=== PATIENT | female | born 1940 | race Caucasian/White ===

== ENCOUNTER 2018-06-18 12:06 | Emergency (ER) | payer MEDICAID, SELFPAY ==
[2018-06-18 12:24] VITALS: BP 192/62; PULSE 71; RESP 16; TEMP 36.7; O2SAT 94
--- NOTE | 2018-06-18 12:29 | W.ED.GENAD ---
Discharge Plan Discharge Details Chief Complaint: Orthopedic Primary Care Provider: Enedelia Moura ED Provider: Kartik Lujan Home Meds and New Rx's Prescriptions: No Action triamcinolone acetonide 80 GM ointment 2 - 4 gm Topical BID PRNQty: 80 RF: 0 multivitamin [Daily Multi-Vitamin] 1 EACH tablet 1 ea PO DAILY AM Qty: 90 RF: 12 ropinirole 1 MG tablet 1.5 mg PO HS Qty: 135 RF: 6 amlodipine 5 MG tablet 5 mg PO DAILY Qty: 90 RF: 12 aspirin [Aspir-81] 81 MG tablet,delayed release (DR/EC) 81 mg PO DAILY AM Qty: 90 RF: 12 acetaminophen [Acetaminophen Extra Strength] 500 MG tablet 1,000 mg PO Q6H PRN PRNQty: 180 RF: 12 hydrochlorothiazide 12.5 MG capsule 12.5 mg PO DAILY Qty: 90 RF: 12 gabapentin 300 MG capsule PO HS Qty: 360 RF: 12 triamcinolone acetonide 80 GM ointment 2 - 4 gm Topical DAILY PRNQty: 80 RF: 2 ibuprofen [Ibuprofen IB] 200 MG tablet 200 - 600 mg PO PRN PRNRF: 0 Medical Decision Making 78-year-old female presents with right hand ring finger pain and swelling, secondary to her wedding rings which caused constriction in the context of edema secondary to finger cellulitis. Rings were removed, patient referred for x-ray which does not reveal underlying bony lesion. I will treat her for cellulitis of the hand with Keflex. She will do warm compresses at home. She is stable and improved, appropriate for discharge to home. HPI General Mode of arrival: ambulatory. Date/Time Provider Initiated Documentation: 06/18/18 12:25. Limitations to Documentation: no limitations. Information obtained by: patient. History of Present Illness 78 year old F presents to the emergency department with the chief complaint of Right hand swelling and pain of fourth finger, described as moderate, Quality is described as aching, and is localized to the right and upper extremity. Patient reports no radiation. Patient started experiencing this hour(s) and it has been constant. No relieving factors improve symptom(s), No exacerbating factors reported . Patient did receive the following treatments prior to arrival, none HPI Narrative: 78-year-old female presents with 1 day of right fourth finger swelling and proximal phalanx erythema, now with occlusive constriction of her rings. Related Data Home Medications Medication Instructions Recorded Confirmed ibuprofen [Ibuprofen Ib] 200 - 600 mg PO PRN PRN 03/10/14 06/18/18 triamcinolone acetonide 2 - 4 gm TOPICAL BID PRN #80 gm 01/31/16 06/18/18 acetaminophen [Acetaminophen Extra 1,000 mg PO Q6H PRN PRN #180 tab 12/24/17 06/18/18 Strength] amlodipine 5 mg PO DAILY #90 tab-cap 12/24/17 06/18/18 aspirin [Aspir 81] 81 mg PO DAILY AM #90 tab-cap 12/24/17 06/18/18 gabapentin 0 PO HS #360 tab 12/24/17 hydrochlorothiazide 12.5 mg PO DAILY #90 tab-cap 12/24/17 06/18/18 multivitamin [Multi-Vitamin Daily] 1 ea PO DAILY AM #90 tab-cap 12/24/17 06/18/18 ropinirole 1.5 mg PO HS #135 tab 12/24/17 06/18/18 triamcinolone acetonide 2 - 4 gm TOPICAL DAILY PRN #80 gm 05/05/18 06/18/18 Previous Rx's Medication Instructions Recorded amlodipine 5 mg PO DAILY #90 tab-cap 12/24/17 aspirin [Aspir 81] 81 mg PO DAILY AM #90 tab-cap 12/24/17 hydrochlorothiazide 12.5 mg PO DAILY #90 tab-cap 12/24/17 multivitamin [Multi-Vitamin Daily] 1 ea PO DAILY AM #90 tab-cap 12/24/17 ropinirole 1.5 mg PO HS #135 tab 12/24/17 Allergies Allergy/AdvReac Type Severity Reaction Status Date / Time No Known Allergies Allergy Unverified 05/05/18 11:38 General Stated Complaint: Orthopedic JOE: 4 Review of Systems Review of Systems For systems reviewed and otherwise - [facility] Family History Mother Asthma Father Personal history of malignant neoplasm Sister Personal history of malignant neoplasm Brother Personal history of malignant neoplasm Sister No problems noted. Sister Personal history of malignant neoplasm Brother No problems noted. Son No problems noted. Son No problems noted. Son No problems noted. Daughter No problems noted. Daughter No problems noted. Social History household members: other details: 2 pets and animals: No Smoking/Tobacco Use Status: Never alcohol intake: never substance use type: does not use estrada/jain: OTHER Surgical History Colonoscopy - [facility] (~2004) Exam Narrative Exam Narrative: GEN: awake, alert, oriented 3. Pleasant, well groomed, interactive. HEAD: Normocephalic, atraumatic EYES: PERRL, EOMI NECK: Full ROM, no JULIA, no menigismus CHEST/RESP: Nontender, clear to auscultation bilateral, no wheeze/rhonchi/rales CARDIOVASCULAR: RRR, no murmur, rub hermilo. 2+ Rad pulse bilateral EXT: Full ROM, no edema, no rash. Right fourth finger proximal phalanx erythema with central area of abrasion. Distal sensation intact Neuro: Grossly normal neurologic exam, conversant, interactive. Psych: Speech fluent, thoughts congruent, affect normal Course Vital Signs Temperature 36.7 C 06/18/18 12:24 Pulse 71 06/18/18 12:24 Respiratory Rate 16 06/18/18 12:24 Blood Pressure 192/62 H 06/18/18 12:24 Pulse Oximetry 94 L 06/18/18 12:24 Temperature 36.7 C 06/18/18 12:24 Temperature Source Skin 06/18/18 12:24 Pulse 71 06/18/18 12:24 Respiratory Rate 16 06/18/18 12:24 Respiratory Effort Non-Labored 06/18/18 12:24 Blood Pressure 192/62 H 06/18/18 12:24 Blood Pressure Position Sitting 06/18/18 12:24 Pulse Oximetry 94 L 06/18/18 12:24 Oxygen Delivery Method Room Air 06/18/18 12:24 Oxygen Flow Rate 0 06/18/18 12:24 Pain Level 10 06/18/18 12:24
--- NOTE | 2018-06-18 12:32 | ED.GENADUL_ITS ---
Discharge Plan Discharge Details Chief Complaint: Orthopedic Primary Care Provider: Enedelia Moura ED Provider: Kartik Lujan Home Meds and New Rx's Prescriptions: No Action triamcinolone acetonide 80 GM ointment 2 - 4 gm Topical BID PRNQty: 80 RF: 0 multivitamin [Daily Multi-Vitamin] 1 EACH tablet 1 ea PO DAILY AM Qty: 90 RF: 12 ropinirole 1 MG tablet 1.5 mg PO HS Qty: 135 RF: 6 amlodipine 5 MG tablet 5 mg PO DAILY Qty: 90 RF: 12 aspirin [Aspir-81] 81 MG tablet,delayed release (DR/EC) 81 mg PO DAILY AM Qty: 90 RF: 12 acetaminophen [Acetaminophen Extra Strength] 500 MG tablet 1,000 mg PO Q6H PRN PRNQty: 180 RF: 12 hydrochlorothiazide 12.5 MG capsule 12.5 mg PO DAILY Qty: 90 RF: 12 gabapentin 300 MG capsule PO HS Qty: 360 RF: 12 triamcinolone acetonide 80 GM ointment 2 - 4 gm Topical DAILY PRNQty: 80 RF: 2 ibuprofen [Ibuprofen IB] 200 MG tablet 200 - 600 mg PO PRN PRNRF: 0 Medical Decision Making 78-year-old female presents with right hand ring finger pain and swelling, secondary to her wedding rings which caused constriction in the context of edema secondary to finger cellulitis. Rings were removed, patient referred for x-ray which does not reveal underlying bony lesion. I will treat her for cellulitis of the hand with Keflex. She will do warm compresses at home. She is stable and improved, appropriate for discharge to home. HPI General Mode of arrival: ambulatory . Date/Time Provider Initiated Documentation: 06/18/18 12:25 . Limitations to Documentation: no limitations . Information obtained by: patient . History of Present Illness 78 year old F presents to the emergency department with the chief complaint of Right hand swelling and pain of fourth finger, described as moderate, Quality is described as aching, and is localized to the right and upper extremity. Patient reports no radiation. Patient started experiencing this hour(s) and it has been constant. No relieving factors improve symptom(s), No exacerbating factors reported . Patient did receive the following treatments prior to arrival, none HPI Narrative: 78-year-old female presents with 1 day of right fourth finger swelling and proximal phalanx erythema, now with occlusive constriction of her rings. Related Data Home Medications Medication Instructions Recorded Confirmed ibuprofen [Ibuprofen Ib] 200 - 600 mg PO PRN PRN 03/10/14 06/18/18 triamcinolone acetonide 2 - 4 gm TOPICAL BID PRN #80 gm 01/31/16 06/18/18 acetaminophen [Acetaminophen Extra 1,000 mg PO Q6H PRN PRN #180 tab 12/24/17 Strength] amlodipine 5 mg PO DAILY #90 tab-cap 12/24/17 06/18/18 aspirin [Aspir 81] 81 mg PO DAILY AM #90 tab-cap 12/24/17 06/18/18 gabapentin 0 PO HS #360 tab 12/24/17 hydrochlorothiazide 12.5 mg PO DAILY #90 tab-cap 12/24/17 06/18/18 multivitamin [Multi-Vitamin Daily] 1 ea PO DAILY AM #90 tab-cap 12/24/17 ropinirole 1.5 mg PO HS #135 tab 12/24/17 06/18/18 triamcinolone acetonide 2 - 4 gm TOPICAL DAILY PRN #80 gm 05/05/18 06/18/18 Previous Rx's Medication Instructions Recorded amlodipine 5 mg PO DAILY #90 tab-cap 12/24/17 aspirin [Aspir 81] 81 mg PO DAILY AM #90 tab-cap 12/24/17 hydrochlorothiazide 12.5 mg PO DAILY #90 tab-cap 12/24/17 multivitamin [Multi-Vitamin Daily] 1 ea PO DAILY AM #90 tab-cap 12/24/17 ropinirole 1.5 mg PO HS #135 tab 12/24/17 Allergies Allergy/AdvReac Type Severity Reaction Status Date / Time No Known Allergies Allergy Unverified 05/05/18 11:38 General Stated Complaint: Orthopedic JOE: 4 Review of Systems Review of Systems For systems reviewed and otherwise - [facility] Family History Mother Asthma Father Personal history of malignant neoplasm Sister Personal history of malignant neoplasm Brother Personal history of malignant neoplasm Sister No problems noted. Sister Personal history of malignant neoplasm Brother No problems noted. Son No problems noted. Son No problems noted. Son No problems noted. Daughter No problems noted. Daughter No problems noted. Social History household members: other details: 2 pets and animals: No Smoking/Tobacco Use Status: Never alcohol intake: never substance use type: does not use estrada/episcopal: OTHER Surgical History Colonoscopy - [facility] (~2004) Exam Narrative Exam Narrative: GEN: awake, alert, oriented 3. Pleasant, well groomed, interactive. HEAD: Normocephalic, atraumatic EYES: PERRL, EOMI NECK: Full ROM, no JULIA, no menigismus CHEST/RESP: Nontender, clear to auscultation bilateral, no wheeze/rhonchi/rales CARDIOVASCULAR: RRR, no murmur, rub hermilo. 2+ Rad pulse bilateral EXT: Full ROM, no edema, no rash. Right fourth finger proximal phalanx erythema with central area of abrasion. Distal sensation intact Neuro: Grossly normal neurologic exam, conversant, interactive. Psych: Speech fluent, thoughts congruent, affect normal Course Vital Signs Temperature 36.7 C 06/18/18 12:24 Pulse 71 06/18/18 12:24 Respiratory Rate 16 06/18/18 12:24 Blood Pressure 192/62 H 06/18/18 12:24 Pulse Oximetry 94 L 06/18/18 12:24 Temperature 36.7 C 06/18/18 12:24 Temperature Source Skin 06/18/18 12:24 Pulse 71 06/18/18 12:24 Respiratory Rate 16 06/18/18 12:24 Respiratory Effort Non-Labored 06/18/18 12:24 Blood Pressure 192/62 H 06/18/18 12:24 Blood Pressure Position Sitting 06/18/18 12:24 Pulse Oximetry 94 L 06/18/18 12:24 Oxygen Delivery Method Room Air 06/18/18 12:24 Oxygen Flow Rate 0 06/18/18 12:24 Pain Level 10 06/18/18 12:24
--- NOTE | 2018-06-18 12:55 | DI.RAD_ITS ---
SYMPTOMS/DIAGNOSIS: 4TH FINGER SWELLING AND HAND PAIN RIGHT HAND: Generalized osteoporosis is demonstrated. There is some soft tissue swelling over the proximal phalanx of the left ring finger. No soft tissue foreign body , fracture or dislocation is defined. 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 SUMMARY: Soft tissue swelling. No evidence of a fracture, or dislocation or soft tissue foreign body involving the ring finger.
[2018-06-18 13:10] VITALS: BP 146/66; PULSE 74; RESP 16; TEMP 36.1; O2SAT 96
== END 2018-06-18 13:11 | disposition home or self-care (01) ==
PROVIDERS: Emergency Provider Emergency Medicine; PCP Family Medicine
DX: L03.011 Cellulitis of right finger (principal); I10 Essential (primary) hypertension
CPT/HCPCS: 99283; 73130

== ENCOUNTER 2018-09-26 13:16 | Emergency (ER) | payer MEDICAID, SELFPAY ==
[2018-09-26 13:40] VITALS: BP 186/54; PULSE 68; RESP 18; TEMP 36.2; O2SAT 95
--- NOTE | 2018-09-26 15:23 | ED.GENADUL_ITS ---
Discharge Plan Disposition Patient Disposition: HOME Condition: Stable Discharge Details Chief Complaint: RashLesion Clinical Impression: Rash of hands Primary Care Provider: Enedelia Moura ED Provider: Karol Faith Home Meds and New Rx's Prescriptions: New prednisone 20 mg tablet 20 mg PO DIRECTED Qty: 12 RF: 0 hydrocortisone 1 % cream 1 applic TP BID Qty: 28 RF: 0 Continued ropinirole 1 MG tablet 1.5 mg PO HS Qty: 135 RF: 6 triamcinolone acetonide 80 GM ointment 2 - 4 gm Topical DAILY PRNQty: 80 RF: 2 gabapentin 300 mg capsule 300 mg PO BID Qty: 360 RF: 12 aspirin [Aspir-81] 81 mg tablet,delayed release (DR/EC) 81 mg PO DAILY AM Qty: 90 RF: 12 hydrochlorothiazide 12.5 mg capsule 12.5 mg PO DAILY Qty: 90 RF: 12 multivitamin [Daily Multi-Vitamin] tablet 1 tab PO DAILY AM Qty: 90 RF: 12 acetaminophen [Acetaminophen Extra Strength] 500 mg tablet 1,000 mg PO Q6H PRN PRN (Reason: fever or pain) Qty: 180 RF: 4 amlodipine 5 mg tablet 5 mg PO DAILY Qty: 90 RF: 12 ibuprofen [Ibuprofen IB] 200 MG tablet 200 - 600 mg PO PRN PRNRF: 0 Discharge Instructions Instructions: Acute Rash (ED), Dyshidrotic Eczema (ED) Additional Instructions: Avoid frequent handwashing which may worsen rash or drying of hands. Apply a thick cream such as Lubriderm or Aveeno to help with moisture of hands. Consider wearing gloves over lotion on hands at nighttime. Apply the hydrocortisone cream to hands and right arm twice daily. Take the oral steroids until finished. Call your primary care doctor for referral to a handle assembler for re-evaluation. Take Benadryl as needed to help with itching and to avoid scratching which may cause a secondary bacterial infection. Return immediately to the emergency department for any worsening or new concerning symptoms. Discharge Data Discharge Date/Time-TO BE ENTERED AT DEPARTURE: 09/26/18 15:20 Discharge Physician: Karol Faith Medical Decision Making 78-year-old female with a history of dyshidrotic eczema who presents with chronic rash on bilateral hands for the past 8 months. Patient presents with persistent itching over the past few days. Denies any new exposures. Bilateral palmar hands appear mildly pink/faintly erythematous with scaling noted. No acute signs of infection. No bleeding or drainage. There are scattered erythematous papules on her right upper arm. Patient has been seen by her primary care doctor for this and was diagnosed with dyshidrotic eczema and presentation appears likely due to this. No relief with hydrocortisone cream. Discussed with patient that oral steroids may give her relief, but symptoms may return after. Advised that she follow-up with a handle assembler. Patient would like to try the oral steroids. Will give a prescription for prednisone, recommend to continue hydrocortisone cream, and consider adding lotions to help with moisture. Advised on taking antihistamines to help with itching to avoid secondary bacterial infection. Instructed to return here with any concerns. HPI General Mode of arrival: ambulatory . Date/Time Provider Initiated Documentation: 09/26/18 14:16 . Limitations to Documentation: no limitations . Information obtained by: patient . HPI Narrative: 78-year-old female with a history of dyshidrotic eczema who presents with chronic rash on bilateral hands for the past 8 months. She has been seen by her pcp for this and diagnosed with dyshidrotic eczema and states her symptoms have been chronic since then just with worsening persistent itching over the past few days. Denies new soaps, lotions, detergents, meds, exposures. Pt has been using cortisone and triamcinolone cream w/ minimal relief. Pt states she washes her hands frequently. Pt states the itching bothers her a lot at night and she has trouble sleeping due to it so she occasionally takes benadryl for this. Related Data Home Medications Medication Instructions Recorded Confirmed ibuprofen [Ibuprofen IB] 200 - 600 mg PO PRN PRN 03/10/14 09/26/18 ropinirole 1.5 mg PO HS #135 tab 12/24/17 09/26/18 triamcinolone acetonide 2 - 4 gm TOPICAL DAILY PRN #80 gm 05/05/18 09/26/18 gabapentin 300 mg capsule 300 mg PO BID #360 tab 06/23/18 09/26/18 acetaminophen 500 mg tablet 1,000 mg PO Q6H PRN PRN #180 tab 08/04/18 09/26/18 amlodipine 5 mg tablet 5 mg PO DAILY #90 tab-cap 08/04/18 09/26/18 aspirin 81 mg tablet,delayed 81 mg PO DAILY AM #90 tab-cap 08/04/18 09/26/18 release hydrochlorothiazide 12.5 mg capsule 12.5 mg PO DAILY #90 tab-cap 08/04/18 09/26/18 multivitamin tablet 1 tab PO DAILY AM #90 tab-cap 08/04/18 09/26/18 hydrocortisone 1 applic TP BID #28 gm 09/26/18 prednisone 20 mg PO DIRECTED #12 tab 09/26/18 Previous Rx's Medication Instructions Recorded ropinirole 1.5 mg PO HS #135 tab 12/24/17 acetaminophen 500 mg tablet 1,000 mg PO Q6H PRN PRN #180 tab 08/04/18 amlodipine 5 mg tablet 5 mg PO DAILY #90 tab-cap 08/04/18 aspirin 81 mg tablet,delayed 81 mg PO DAILY AM #90 tab-cap 08/04/18 release hydrochlorothiazide 12.5 mg capsule 12.5 mg PO DAILY #90 tab-cap 08/04/18 multivitamin tablet 1 tab PO DAILY AM #90 tab-cap 08/04/18 hydrocortisone 1 applic TP BID #28 gm 09/26/18 prednisone 20 mg PO DIRECTED #12 tab 09/26/18 Allergies Allergy/AdvReac Type Severity Reaction Status Date / Time No Known Allergies Allergy Unverified 09/26/18 13:46 General Stated Complaint: RashLesion JOE: 4 Review of Systems Review of Systems All systems reviewed & are unremarkable except as noted in HPI and below Constitutional Reports as per HPI, Denies chills and Denies fever(s) Eyes Denies blurry vision ENT Denies dizziness, Denies sore throat and Denies throat swelling Cardiovascular Denies chest pain and Denies dyspnea Respiratory Denies dyspnea Gastrointestinal Denies abdominal pain, Denies diarrhea and Denies vomiting Genitourinary Denies hematuria and Denies dysuria Musculoskeletal Denies back pain and Denies numbness Integumentary/Breasts Denies lesions and Reports rash Neurologic Denies dizziness and Denies numbness Allergic/Immunologic Denies throat swelling [facility] Medical History Spinal stenosis of lumbar region (Chronic 01/19/10) Shoulder pain (Chronic) Restless legs (Chronic 07/29/13) Osteopenia (Chronic) Hyperlipidemia (Chronic) Essential hypertension (Chronic) Dyshidrotic eczema (Chronic 05/05/18) Degenerative cervical disc (Chronic 11/21/15) Surgical History Colonoscopy - [facility] (~2004) Family History Mother Asthma Father Personal history of malignant neoplasm Sister Personal history of malignant neoplasm Brother Personal history of malignant neoplasm Sister No problems noted. Sister Personal history of malignant neoplasm Brother No problems noted. Son No problems noted. Son No problems noted. Son No problems noted. Daughter No problems noted. Daughter No problems noted. Social History household members: other details: 2 pets and animals: No Smoking/Tobacco Use Status: Never alcohol intake: never substance use type: does not use estrada/muslim: OTHER Exam Const General: cooperative, healthy appearing and no acute distress HENMT Head: normal to inspection Mouth: oral mucosae normal Eyes General: appearance normal, both eyes and all related structures Neck Neck: normal visual inspection Resp Effort & Inspection: normal respiratory effort and able to speak in complete sentences Cardio Rate: regular rate Skin Other: Hands: b/l palmar faint erythema extending and well circumscribed to edges of hands. There is also scattered scaling noted but no acute signs of infection, drainage, bleeding, papules, vesicles. R upper arm: Scattered erythematous papules noted to R anterolateral upper arm. No scaling, vesicles, drainage or bleeding. Neuro General: alert, awake and oriented x3 Motor: muscle tone normal throughout Extrem General: full ROM and normal capillary refill Psych Appearance: grossly normal Affect: normal affect Course Vital Signs Temperature 97.2 F L 09/26/18 13:40 Pulse 68 09/26/18 13:40 Respiratory Rate 18 09/26/18 13:40 Blood Pressure 186/54 H 09/26/18 13:40 Pulse Oximetry 95 09/26/18 13:40 Temperature 97.2 F L 09/26/18 13:40 Temperature Source Temporal Artery Scan 09/26/18 13:40 Pulse 68 09/26/18 13:40 Respiratory Rate 18 09/26/18 13:40 Respiratory Effort Non-Labored 09/26/18 13:45 Blood Pressure 186/54 H 09/26/18 13:40 Blood Pressure Position Sitting 09/26/18 13:40 Pulse Oximetry 95 09/26/18 13:40 Oxygen Delivery Method Room Air 09/26/18 13:40 Oxygen Flow Rate 0 09/26/18 13:40
== END 2018-09-26 15:20 | disposition home or self-care (01) ==
PROVIDERS: Emergency Provider Physician Assistant; PCP Family Medicine
DX: R21 Rash and other nonspecific skin eruption (principal); I10 Essential (primary) hypertension
CPT/HCPCS: 99283

== ENCOUNTER 2018-11-12 11:49 | Outpatient (REF) | payer MEDICAID, SELFPAY ==
[2018-11-12 12:57] LABS: Abs Immature Grans 0.08 k/cumm (0.0-0.09); Absolute Basophil Count 0.07 k/cumm (0.0-0.2); Absolute Lymphocyte Count 2.15 k/cumm (1.2-3.4); Absolute Monocyte Count 0.73 k/cumm (0.11-0.7); Basophils % 0.6; Eosinophils % 0.3; HCT 39.3 % (36.0-46.0); HGB 12.9 g/dL (12.0-15.5); Immature Grans % 0.7; Lymphocytes % 18.8; Mean Corp. HGB Concentration 32.8 g/dL (32.0-36.0); Mean Corpuscular Hemoglobin 28.6 pg (27.0-33.0); Mean Corpuscular Volume 87.1 fL (80-95); Mean Platelet Volume 11.5 fL (8.0-11.0); Monocytes % 6.4; Neutrophils % 73.2; Platelet Count 365 x1000/uL (130-400); RBC 4.51 m/cumm (4.00-5.20); RBC Distribution Width 13.9 % (11.7-14.6); White Blood Cell Count 11.43 k/cumm (4.4-10.8)
[2018-11-12 13:01] LABS: Absolute Eosinophil Count 0.03 k/cumm (0.0-0.7); Absolute Neutrophil Count 8.37 k/cumm (1.2-6.7)
[2018-11-12 13:11] LABS: Iron 72 ug/dL (50-175); Total Iron Binding Capacity 330 ug/dL (250-450); Transferrin Sat 22 % (15-50)
[2018-11-12 13:13] LABS: ALT 37 U/L (12-78); AST 20 U/L (15-37); Albumin 3.8 g/dL (3.4-5.0); Alkaline Phosphatase 70 U/L (46-116); Anion Gap 9.5 mmol/L (3-11); BUN 23 mg/dL (7-18); Bilirubin, Total 0.3 mg/dL (0.2-1.0); CO2 28.5 mmol/L (21.0-32.0); CREATININE 0.73 mg/dL (0.55-1.02); Calcium 9.8 mg/dL (8.5-10.1); Chloride 101 mmol/L (98-107); Glucose 106 mg/dL (70-100); Sodium 139 mmol/L (136-145); Total Protein 7.4 g/dL (6.4-8.2)
[2018-11-12 13:27] LABS: Ferritin 100 ng/mL (8-388)
== END 2018-11-12 12:09 ==
LOC: NCHCN 11:49
PROVIDERS: PCP Family Medicine; Visit Provider Nurse Practitioner Family
DX: E78.5 Hyperlipidemia, unspecified (principal); I10 Essential (primary) hypertension; G25.81 Restless legs syndrome; L30.1 Dyshidrosis [pompholyx]
CPT/HCPCS: 80053; 82728; 83540; 83550; 85025

== ENCOUNTER 2019-07-15 19:40 | Emergency (ER) | payer MEDICAID, SELFPAY ==
[2019-07-15 19:45] VITALS: BP 170/59; PULSE 75; RESP 16; TEMP 36.7; O2SAT 94
--- NOTE | 2019-07-15 20:16 | W.ED.GENAD ---
Discharge Plan Disposition Patient Disposition: HOME Condition: Good Discharge Details Chief Complaint: Epistaxis Clinical Impression: Epistaxis Primary Care Provider: Jese Gonzalez ED Provider: Khloe Thomas Home Meds and New Rx's Prescriptions: Continued gabapentin 300 mg capsule 300 mg PO BID Qty: 360 RF: 12 hydrochlorothiazide 12.5 mg capsule 12.5 mg PO DAILY Qty: 90 RF: 12 multivitamin [Daily Multi-Vitamin] tablet 1 tab PO DAILY AM Qty: 90 RF: 12 acetaminophen [Acetaminophen Extra Strength] 500 mg tablet 1,000 mg PO Q6H PRN PRN (Reason: fever or pain) Qty: 180 RF: 4 amlodipine 5 mg tablet 5 mg PO DAILY Qty: 90 RF: 12 aspirin [Aspir-81] 81 mg tablet,delayed release (DR/EC) 81 mg PO DAILY AM Qty: 90 RF: 12 ropinirole 1 mg tablet 1.5 mg PO HS Qty: 135 RF: 6 halobetasol propionate 0.05 % cream 1 applic TP DAILY RF: 0 cyanocobalamin (vitamin B-12) 1,000 mcg capsule 1,000 mcg PO DAILY RF: 0 magnesium oxide 400 mg magnesium capsule 400 mg PO DAILY RF: 0 ibuprofen [Ibuprofen IB] 200 MG tablet 200 - 600 mg PO PRN PRNRF: 0 Discharge Instructions Instructions: Nosebleed (ED) Additional Instructions: Encourage water intake. Please use the nasal saline 3-5 times daily to help moisturize your nose. If you develop a recurrent nosebleed, please apply clamp and leave in place for 20 minutes. Please follow-up with primary care as needed. If you are unable to stop the bleeding at home, you may return to the emergency department. Referrals: Jese Gonzalez, [employer]ATION OFFICER [Primary Care Provider] - Discharge Data Discharge Date/Time-TO BE ENTERED AT DEPARTURE: 07/15/19 20:40 Medical Decision Making Patient presents today with chief complaint of epistaxis. She is brought in by her daughter. She reports that she had epistaxis that lasted approximately 1 hour and has since resolved. Atraumatic onset. Is not had this historically. Patient's primary concern is that she swallowed some blood clots that were coming from her nose. She reports she was able to stop the bleeding by holding pressure on the nose. Family reports that they did recently turned on the heat and have not been using any humidification in the air. On exam, patient is resting comfortably. Patient is noted to be hypertensive but this is not atypical for her. Vital signs are otherwise normal. She is not endorsing any lightheadedness or weakness. No signs of anemia on exam. She does have a scant amount of dried blood in bilateral nares but no evidence of persistent bleeding. Feel that further intervention is needed at this time. She was given clamp and instructions on how to use this. Advise humidification. Encourage nasal saline. Advise follow-up with primary care this continues to be an issue. Encouraged that she not blow her nose, no digital manipulation. She was given return precautions. All her questions and concerns were addressed she is agreement this plan. HPI General Mode of arrival: ambulatory. Date/Time Provider Initiated Documentation: 07/15/19 20:16. Limitations to Documentation: no limitations. Information obtained by: patient and family (Daughter). HPI Narrative: Patient is an 79-year-old female presents today with chief complaint of epistaxis. She reports that this evening, patient was, primarily bleeding from the right nares brain rest for 1 hour. She reports she is able to hold pressure with cessation of the symptoms. She is concerned that she swallowed blood products during the episode. Denies any trauma. Is not anticoagulated. Denies easy bleeding or Bruising. Denies feeling lightheaded or weak. Does not believe she is having any bleeding currently. Does not feel like is running down her posterior oropharynx. Related Data Home Medications Medication Instructions Recorded Confirmed ibuprofen [Ibuprofen IB] 200 - 600 mg PO PRN PRN 03/10/14 07/15/19 gabapentin 300 mg capsule 300 mg PO BID #360 tab 06/23/18 07/15/19 acetaminophen 500 mg tablet 1,000 mg PO Q6H PRN PRN #180 tab 08/04/18 07/15/19 amlodipine 5 mg tablet 5 mg PO DAILY #90 tab-cap 08/04/18 07/15/19 hydrochlorothiazide 12.5 mg capsule 12.5 mg PO DAILY #90 tab-cap 08/04/18 07/15/19 multivitamin 1 tab PO DAILY AM #90 tab-cap 08/04/18 07/15/19 aspirin 81 mg tablet,delayed 81 mg PO DAILY AM #90 tab-cap 11/11/18 07/15/19 release ropinirole 1 mg tablet 1.5 mg PO HS #135 tab 11/11/18 07/15/19 cyanocobalamin (vitamin B-12) 1,000 mcg PO DAILY 06/30/19 07/15/19 1,000 mcg capsule halobetasol propionate 0.05 % 1 applic TP DAILY 06/30/19 07/15/19 topical cream magnesium oxide 400 mg PO DAILY 06/30/19 07/15/19 Previous Rx's Medication Instructions Recorded acetaminophen 500 mg tablet 1,000 mg PO Q6H PRN PRN #180 tab 08/04/18 amlodipine 5 mg tablet 5 mg PO DAILY #90 tab-cap 08/04/18 hydrochlorothiazide 12.5 mg capsule 12.5 mg PO DAILY #90 tab-cap 08/04/18 multivitamin 1 tab PO DAILY AM #90 tab-cap 08/04/18 aspirin 81 mg tablet,delayed 81 mg PO DAILY AM #90 tab-cap 11/11/18 release ropinirole 1 mg tablet 1.5 mg PO HS #135 tab 11/11/18 Allergies Allergy/AdvReac Type Severity Reaction Status Date / Time No Known Allergies Allergy Unverified 07/10/19 08:25 General Stated Complaint: Epistaxis JOE: 3 Review of Systems Constitutional Constitutional: Reports as per HPI, Denies chills, Denies fatigue, Denies fever(s), Denies headache(s), Denies malaise and Denies weakness ENT Ears, Nose, Mouth, and Throat: Reports as per HPI, Denies change in voice, Denies dizziness, Denies ear discharge, Denies otalgia, Denies headache(s), Reports epistaxis (since resolved), Denies mouth lesions, Denies nasal congestion, Denies nasal discharge and Denies nasal trauma Respiratory Respiratory: Denies cough and Denies hemoptysis Gastrointestinal Gastrointestinal: Denies nausea and Denies vomiting Integumentary/Breasts Skin/Breast: Denies rash, Denies skin pain, Denies skin swelling, Denies unusual bruising and Denies wounds Neurologic Neurologic: Denies dizziness, Denies headache(s) and Denies weakness Endocrine Endocrine: Denies fatigue [facility] Medical History Degenerative cervical disc (Chronic 11/21/15) 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, benign tumor Dyshidrotic eczema (Chronic 05/05/18) Essential hypertension (Chronic) Hyperlipidemia (Chronic) Osteopenia (Chronic) 11/25 DEXA: -2.2/-1.4/-1.5 Restless legs (Chronic 04/20/13) Shoulder pain (Resolved) RIGHT~FROZEN Skin tag (Resolved) 12/18/16 multiple, irritated Spinal stenosis of lumbar region (Chronic 01/19/10) Tongue lesion (Resolved) Surgical History Colonoscopy - MAC (~2004) neg Social History Smoking/Tobacco Use Status: Never Alcohol Intake: never Drug use: Never Substance use type: does not use Household members: other Details: 2 Pets and animals: No What type of physical activity do you participate in: none Luba/Yarsanism: OTHER Do you feel safe in your relationship?: Yes Exam Const General: cooperative, healthy appearing, comfortable, no acute distress, well developed and well groomed HENHI Head: normal to inspection, normocephalic and atraumatic Ears: hearing grossly normal bilaterally General nose exam: external nose normal, nares abnormal (dried blood in nares bilaterally, no specific area of bleeding identified. ), septum normal (blood adhered to right side of septum), no nasal discharge, no nasal discharge noted, no nasal polyps and normal septum Face and sinus: normal facial exam, sinuses nontender and face symmetric Mouth: oral mucosae normal and lip normal Throat: posterior oropharynx normal, tonsils normal and uvula midline Eyes General: appearance normal, both eyes and all related structures Resp Effort & Inspection: normal respiratory effort, able to speak in complete sentences and no respiratory distress Skin General skin exam: no rashes or lesions noted Neuro General: alert, awake and oriented x3 Cognition: normal cognition Speech: speech normal Gait: normal gait Psych Appearance: grossly normal and well kempt Mental Status: mental status grossly normal Speech and Movement: speech and movement normal Course Vital Signs Vital signs: Vital Signs Temperature 36.7 C 07/15/19 19:45 Pulse 75 07/15/19 19:45 Respiratory Rate 16 07/15/19 19:45 Blood Pressure 170/59 H 07/15/19 19:45 Pulse Oximetry 94 L 07/15/19 19:45 Temperature 36.7 C 07/15/19 19:45 Pulse 75 07/15/19 19:45 Respiratory Rate 16 07/15/19 19:45 Respiratory Effort 07/15/19 20:10 Blood Pressure 170/59 H 07/15/19 19:45 Blood Pressure Position Sitting 07/15/19 19:45 Pulse Oximetry 94 L 07/15/19 19:45 Oxygen Delivery Method Room Air 07/15/19 19:45 Oxygen Flow Rate 0 07/15/19 19:45
== END 2019-07-15 20:40 | disposition home or self-care (01) ==
PROVIDERS: Emergency Provider Physician Assistant; PCP Nurse Practitioner Family
DX: R04.0 Epistaxis (principal); I10 Essential (primary) hypertension
CPT/HCPCS: 99282

== ENCOUNTER 2020-12-15 17:23 | Outpatient (REF) | payer MEDICAID, SELFPAY ==
[2020-12-15 17:57] LABS: HCT 39.1 % (36.0-46.0); HGB 12.8 g/dL (11.2-15.7); MCH 28.6 pg (27.0-33.0); MCHC 32.7 % (32.0-36.0); MCV 87.3 fL (80-95); MPV 11.9 fL (8.0-11.0); Platelet Count 176 10^3/uL (130-400); RBC 4.48 10^6/uL (3.93-5.22); RDW 13.2 % (11.7-14.6); WBC 7.89 10^3/uL (4.4-10.8)
[2020-12-15 19:03] LABS: ALT 26 U/L (14-59); AST 23 U/L (15-37); Alkaline Phosphatase 74 U/L (46-116); Anion Gap 8.9 mmol/L (3-11); BUN 22 mg/dL (7-18); Bilirubin, Total 0.4 mg/dL (0.2-1.0); CO2 26.1 mmol/L (21.0-32.0); CREATININE 0.7 mg/dL (0.55-1.02); Calcium 9.5 mg/dL (8.5-10.1); Chloride 104 mmol/L (98-107); Folate > 20.0 ng/mL (8.6-20.0); Glucose 91 mg/dL (74-106); Potassium 4.5 mmol/L (3.5-5.1); Sodium 139 mmol/L (136-145); Total Protein 7.5 g/dL (6.4-8.2); Vitamin B12 888 pg/mL (193-986)
== END 2020-12-15 17:24 | disposition home or self-care (01) ==
LOC: NCHCN 17:23
PROVIDERS: PCP Nurse Practitioner Family; Visit Provider Nurse Practitioner Family
DX: G25.81 Restless legs syndrome (principal)
CPT/HCPCS: 80053; 85027; 82607; 82746

== ENCOUNTER 2021-05-28 12:22 | Emergency (ER) | payer MEDICAID, SELFPAY ==
[2021-05-28] VITALS (25 sets, daily range): BP systolic 135–169; BP diastolic 41–71; PULSE 63–88; RESP 16–37; TEMP 36.7–37.4; O2SAT 89–93
--- NOTE | 2021-05-28 12:45 | DI.RAD_ITS ---
Exam(s) XR PORTABLE CHEST AP EXAM: XR PORTABLE CHEST AP CLINICAL HISTORY: cough, covid + TECHNIQUE: 2D digital imaging was performed. COMPARISON: CR THORACIC SPINE from 09/13/2015 CR CHEST 2 VIEWS PA,LAT from 09/13/2015 CR THORACIC SPINE from 09/13/2015 CR RIGHT SHOULDER COMPLETE from 12/19/2016 FINDINGS: LUNGS: Suboptimally inflated. Basilar scarring. Question of mildly increased densities at the lung bases compared with the previous exam could be secondary to technique versus acute infiltrates. No p leural abnormality seen. HEART: Normal. MEDIASTINUM: Normal. BONES: Unremarkable. IMPRESSION: Basilar scarring. Question superimposed acute infiltrates. DATA REPOSITORY: RADIATION DOSE DELIVERED:
[2021-05-28] MEDS: Normal Saline 1,000 ML 1000 ML IV (13:18)
[2021-05-28 13:21] LABS: Abs Immature Grans 0.01 10^3/uL (0.0-0.06); HGB 12.4 g/dL (11.2-15.7); MCH 28.2 pg (27.0-33.0); MCHC 33.5 % (32.0-36.0); MCV 84.1 fL (80-95); MPV 11.3 fL (8.0-11.0); Nucleated RBC 0 %; Platelet Count 181 10^3/uL (130-400); RDW 12.9 % (11.7-14.6); RDW-SD 39.9 fL; WBC 5.07 10^3/uL (4.4-10.8)
[2021-05-28 13:36] LABS: Absolute Lymphocyte Count 1.47 10^3/uL (1.2-3.4); Absolute Monocyte Count 0.66 10^3/uL (0.1-0.8); Absolute Neutrophil Count 2.94 10^3/uL (1.2-6.7); Atypical Lymphocytes % 3
[2021-05-28 13:37] LABS: Diff Comment Manual Differential; RBC Morphology Normal
[2021-05-28 13:39] LABS: ALT 141 U/L (14-59); AST 127 U/L (15-37); Albumin 3.3 g/dL (3.4-5.0); Alkaline Phosphatase 85 U/L (46-116); Anion Gap 9.9 mmol/L (3-11); BUN 12 mg/dL (7-18); Bilirubin, Total 0.5 mg/dL (0.2-1.0); CO2 26.1 mmol/L (21.0-32.0); CREATININE 0.7 mg/dL (0.55-1.02); Calcium 8.1 mg/dL (8.5-10.1); Chloride 92 mmol/L (98-107); Glucose 113 mg/dL (74-106); Potassium 3.6 mmol/L (3.5-5.1); Sodium 128 mmol/L (136-145); Total Protein 6.7 g/dL (6.4-8.2)
--- NOTE | 2021-05-28 14:17 | DI.VRAD_ITS ---
PROCEDURE INFORMATION: Exam: XR Chest Exam date and time: 05/28/2021 12:48 PM Age: 81 years old Clinical indication: Other: Cough, covid +; Additional info: Cough, covid + TECHNIQUE: Imaging protocol: XR of the chest. Views: 1 view. COMPARISON: CR CHEST 2 VIEWS PA,LAT 09/13/2015 5:49 AM FINDINGS: Lungs: Patchy bilateral opacities may represent multifocal pneumonia including COVID-19. Pleural spaces: Unremarkable. No pleural effusion. No pneumothorax. Heart/Mediastinum: Unremarkable. No cardiomegaly. Bones/joints: Unremarkable. IMPRESSION: Patchy bilateral opacities may represent multifocal pneumonia including COVID-19. Dictated and Authenticated by: Rebecca Garza MD. Ordering:LEOBARDO Barber MD
--- NOTE | 2021-05-28 14:22 | ED.GENADUL_ITS ---
Discharge Plan Disposition Patient Disposition: HOME Condition: Stable Discharge Details Clinical Impression: COVID Primary Care Provider: Jese Gonzalez ED Provider: Sunil Shields Home Meds and New Rx's Prescriptions: Continued hydrochlorothiazide 12.5 mg capsule 12.5 mg PO DAILY Qty: 90 RF: 12 multivitamin [Daily Multi-Vitamin] tablet 1 tab PO DAILY AM Qty: 90 RF: 12 acetaminophen [Acetaminophen Extra Strength] 500 mg tablet 1,000 mg PO Q6H PRN PRN (Reason: fever or pain) Qty: 180 RF: 4 amlodipine 5 mg tablet 5 mg PO DAILY Qty: 90 RF: 12 aspirin [Aspir-81] 81 mg tablet,delayed release (DR/EC) 81 mg PO DAILY AM Qty: 90 RF: 12 ropinirole 1 mg tablet 1.5 mg PO HS Qty: 135 RF: 6 halobetasol propionate 0.05 % cream 1 applic TP DAILY RF: 0 cyanocobalamin (vitamin B-12) 1,000 mcg capsule 1,000 mcg PO DAILY RF: 0 magnesium oxide 400 mg magnesium capsule 400 mg PO DAILY RF: 0 ibuprofen [Ibuprofen IB] 200 MG tablet 200 - 600 mg PO PRN PRNRF: 0 Discharge Instructions Instructions: COVID-19 (Coronavirus Disease 2019) (ED) Additional Instructions: Your examination is consistent with your already diagnosed Covid. Laboratory values revealed that both your sodium and calcium are slightly low although not emergent. As we discussed, it is important to stay well-hydrated be sure to have things like Gatorade that have electrolytes. I am giving you a pulse oximeter to use at home, please watch for new or worsening symptoms in general or if your oxygen level is consistently below 90 I strongly recommend returning to the ER. Otherwise please contact your primary care provider on Saturday during business hours to discuss your ER visit, ongoing symptoms, and need for outpatient reevaluation. Discharge Data Discharge Date/Time-TO BE ENTERED AT DEPARTURE: 05/28/21 15:20 Medical Decision Making This is an 81-year-old female who reports that she was diagnosed with Covid 4 days ago presenting to the ER now overall feeling quite well but would like to be evaluated to be sure everything is okay, reporting a mild dry cough and feeling mild fatigue. She denies any fever, shortness of breath, productive cough, chest pain pain or swelling her legs. Clinically she appears well, nontoxic, pulse in the 80s, respirations of 20, afebrile, O2 sat 93% on room air. Will obtain routine laboratory values to evaluate for leukocytosis, anemia, electrolyte normality, renal status, obtain x-ray. Given she has no chest pain or shortness of breath we will not obtain EKG or troponin. White blood cell count of 5.04 hemoglobin 12.4 hematocrit 37.0 platelet count 181. Sodium slightly low at 128, patient is receiving 1 L IV fluid. Potassium 3.6 chloride 92 anion gap 9.9 with a GFR greater than 60. Glucose 113 magnesium 2.0 with a calcium of 8.1. I did discuss her electrolyte abnormality with her. Patient reports that because of her general fatigue she does admit to have having less p.o. intake over the past few days. Although her sodium and calcium are not at emergent levels, we discussed the importance of adequate hydration and being sure to have oral intake high in sodium and calcium. Patient understands this. We also discussed the importance of having her blood redrawn as an outpatient to be sure that her levels are normalizing. Chest x-ray reveals patchy bilateral opacities which may represent multifocal pneumonia including COVID-19. In the setting of known Covid 4 days ago, lack of fever, productive cough, hypoxia, etc. I see no clear indication to initiate antibiotic therapy. The patient feels well and is comfortable with discharge. I will provide her with a pulse oximeter that she may monitor her O2 levels and return for new or worsening symptoms. She will be sure to have foods high in electrolytes. She will contact her primary care provider on Saturday to discuss her ongoing symptoms need for outpatient reevaluation and blood draw. Standard discharge and return precautions provided This documentation was generated using Oodriveation system, please disregard any oddities of phrase or misspellings. Medical Records Medical records reviewed: Yes I reviewed the patient's medical records. Imaging Data Radiologic Study: Attestation: I personally reviewed and interpreted this imaging study as follows: Imaging: X-Ray Radiologist's impression: PROCEDURE INFORMATION: Exam: XR Chest Exam date and time: 05/28/2021 12:48 PM Age: 81 years old Clinical indication: Other: Cough, covid +; Additional info: Cough, covid + TECHNIQUE: Imaging protocol: XR of the chest. Views: 1 view. COMPARISON: CR CHEST 2 VIEWS PA,LAT 09/13/2015 5:49 AM FINDINGS: Lungs: Patchy bilateral opacities may represent multifocal pneumonia including COVID-19. Pleural spaces: Unremarkable. No pleural effusion. No pneumothorax. Heart/Mediastinum: Unremarkable. No cardiomegaly. Bones/joints: Unremarkable. IMPRESSION: Patchy bilateral opacities may represent multifocal pneumonia including COVID- 19. Lab Data Lab results reviewed: Yes I reviewed the patient's lab results. Labs: Laboratory Tests Range/Units 05/28/21 05/28/21 13:10 13:10 WBC (4.4-10.8) 10^3/uL 5.07 RBC (3.93-5.22) 10^6/uL 4.40 Hgb (11.2-15.7) g/dL 12.4 Hct (36.0-46.0) % 37.0 MCV (80-95) fL 84.1 MCH (27.0-33.0) pg 28.2 MCHC (32.0-36.0) % 33.5 RDW (11.7-14.6) % 12.9 Plt Count (130-400) 10^3/uL 181 MPV (8.0-11.0) fL 11.3 H Immature Gran % 0.0 Neutrophils % 58.0 Lymphocytes % 26.0 Atypical Lymphs % 3 Monocytes % 13.0 Eosinophils % 0.0 Basophils % 0.0 Nucleated RBC % % 0 Absolute Neutrophils (1.2-6.7) 10^3/uL 2.94 Absolute Lymphocytes (1.2-3.4) 10^3/uL 1.47 Absolute Monocytes (0.1-0.8) 10^3/uL 0.66 Absolute Eosinophils (0.0-0.7) 10^3/uL 0.00 Absolute Basophils (0.0-0.2) 10^3/uL 0.00 RBC Morphology Normal Sodium (136-145) mmol/L 128 L Potassium (3.5-5.1) mmol/L 3.6 Chloride (98-107) mmol/L 92 L Carbon Dioxide (21.0-32.0) mmol/L 26.1 Anion Gap (3-11) mmol/L 9.9 BUN (7-18) mg/dL 12 Creatinine (0.55-1.02) mg/dL 0.7 Estimated GFR/1.73 m2 (mL/min/1.73m2) >= 60.00 Glucose (74-106) mg/dL 113 H Calcium (8.5-10.1) mg/dL 8.1 L Total Bilirubin (0.2-1.0) mg/dL 0.5 AST (15-37) U/L 127 H ALT (14-59) U/L 141 H Alkaline Phosphatase (46-116) U/L 85 Total Protein (6.4-8.2) g/dL 6.7 Albumin (3.4-5.0) g/dL 3.3 L HPI General Mode of arrival: ambulatory . Date/Time Provider Initiated Documentation: 05/28/21 12:46 . Limitations to Documentation: no limitations . Information obtained by: patient . HPI Narrative: This is an 81-year-old female with past medical history of hypertension, hyperlipidemia, osteopenia, presenting to the ER reporting she was diagnosed with Covid 4 days ago, has a mild dry cough, feels slightly tired, generally feels pretty well, but would like to be evaluated to make sure that everything is okay. She denies any headache, neck pain, fever, shortness of breath, productive cough, abdominal pain, nausea, vomiting, back pain, dysuria, diarrhea, skin rash, pain or swelling in the legs, numbness, tingling, weakness. She has not taken any hyat-dip-squdfpy medications for her symptoms. She states that she is not vaccinated against Covid. She lives with her daughter, daughter currently has Covid as well. Related Data Home Medications Medication Instructions Recorded Confirmed ibuprofen [Ibuprofen IB] 200 - 600 mg PO PRN PRN 03/10/14 05/28/21 acetaminophen 500 mg tablet 1,000 mg PO Q6H PRN PRN #180 tab 08/04/18 05/28/21 amlodipine 5 mg tablet 5 mg PO DAILY #90 tab-cap 08/04/18 05/28/21 hydrochlorothiazide 12.5 mg capsule 12.5 mg PO DAILY #90 tab-cap 08/04/18 05/28/21 multivitamin 1 tab PO DAILY AM #90 tab-cap 08/04/18 05/28/21 aspirin 81 mg tablet,delayed 81 mg PO DAILY AM #90 tab-cap 11/11/18 05/28/21 release ropinirole 1 mg tablet 1.5 mg PO HS #135 tab 11/11/18 05/28/21 cyanocobalamin (vitamin B-12) 1,000 mcg PO DAILY 06/30/19 05/28/21 1,000 mcg capsule halobetasol propionate 0.05 % 1 applic TP DAILY 06/30/19 05/28/21 topical cream magnesium oxide 400 mg PO DAILY 06/30/19 05/28/21 Previous Rx's Medication Instructions Recorded acetaminophen 500 mg tablet 1,000 mg PO Q6H PRN PRN #180 tab 08/04/18 amlodipine 5 mg tablet 5 mg PO DAILY #90 tab-cap 08/04/18 hydrochlorothiazide 12.5 mg capsule 12.5 mg PO DAILY #90 tab-cap 08/04/18 multivitamin 1 tab PO DAILY AM #90 tab-cap 08/04/18 aspirin 81 mg tablet,delayed 81 mg PO DAILY AM #90 tab-cap 11/11/18 release ropinirole 1 mg tablet 1.5 mg PO HS #135 tab 11/11/18 Allergies Allergy/AdvReac Type Severity Reaction Status Date / Time No Known Allergies Allergy Unverified 05/28/21 12:39 General Stated Complaint: RespSymp JOE: 3 Review of Systems Constitutional Constitutional: Reports fatigue, Denies fever(s) and Denies headache(s) ENT Ears, Nose, Mouth, and Throat: Denies headache(s) and Denies neck pain Cardiovascular Cardiovascular: Denies chest pain and Denies dyspnea Respiratory Respiratory: Reports cough and Denies dyspnea Gastrointestinal Gastrointestinal: Denies abdominal pain, Denies nausea and Denies vomiting Genitourinary Genitourinary: Denies dysuria Musculoskeletal Musculoskeletal: Denies back pain and Denies neck pain Integumentary/Breasts Skin/Breast: Denies rash Neurologic Neurologic: Denies headache(s) Endocrine Endocrine: Reports fatigue PFSH Medical History Degenerative cervical disc (11/21/15) 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 Asthma Father Personal history of malignant neoplasm SMALL BOWEL Sister Personal history of malignant neoplasm BREAST Brother Personal history of malignant neoplasm Sister No problems noted. Sister Personal history of malignant neoplasm Brother No problems noted. Son No problems noted. Son No problems noted. Son No problems noted. Daughter No problems noted. Daughter No problems noted. Social History Smoking/Tobacco Use Status: Never Smoking risk assessment performed?: Yes Alcohol Intake: never Drug use: Never Substance use type: does not use Household members: other Details: 2 Pets and animals: No What type of physical activity do you participate in: none Luba/Pentecostal: OTHER Do you feel safe in your relationship?: Yes Female Reproductive History Menstrual Menopause type: natural History History 6 Para 5 Hx # Term Pregnancies 5 Multiple births Hx # Pregnancies Ectopic pregnancies AB induced Hx Number of Living Children 5 AB spontaneous Exam Const General: cooperative, healthy appearing, comfortable and no acute distress Orientation: alert and awake HENMT Head: normal to inspection, normocephalic and atraumatic Face and sinus: normal facial exam Mouth: moist mucous membranes Throat: posterior oropharynx normal Eyes General: appearance normal, both eyes and all related structures Conjunctivae: conjunctivae normal Neck Neck: normal visual inspection, full ROM, trachea midline, supple and nontender Resp Effort & Inspection: normal respiratory effort and able to speak in complete sentences Auscultation: clear to auscultation bilaterally Cardio Rate: regular rate Rhythm: regular rhythm GI Palpation: soft and nontender Back/Spine/Pelvis Back: No back tenderness Skin General skin exam: no rashes or lesions noted Neuro General: patient alert, patient awake, moves all extremities and no focal motor deficits Cognition: normal cognition Speech: speech normal Gait: normal gait Sensory Exam: no sensory deficits noted Extrem General: normal to inspection, full ROM, capillary refill normal, no pedal edema and no calf tenderness Psych Appearance: grossly normal Mental Status: mental status grossly normal Course Vital Signs Vital signs: Vital Signs Temperature 37.4 C 05/28/21 12:33 Pulse 87 05/28/21 12:33 Respiratory Rate 20 05/28/21 12:33 Blood Pressure 169/50 H 05/28/21 12:33 Pulse Oximetry 93 05/28/21 12:33 Temperature 37.4 C 05/28/21 12:33 Temperature Source Oral 05/28/21 12:33 Pulse 87 05/28/21 12:33 Respiratory Rate 20 05/28/21 12:33 Respiratory Effort Non-Labored 05/28/21 12:41 Respiratory Depth Normal 05/28/21 12:41 Blood Pressure 169/50 H 05/28/21 12:33 Blood Pressure Position Sitting 05/28/21 12:33 Pulse Oximetry 93 05/28/21 12:33 Oxygen Delivery Method Room Air 05/28/21 12:33 Oxygen Flow Rate 0 05/28/21 12:33 Pain Level 0 05/28/21 12:33 Lab/Test Results Lab/Test Results: Laboratory Tests Range/Units 05/28/21 05/28/21 13:10 13:10 WBC (4.4-10.8) 10^3/uL 5.07 RBC (3.93-5.22) 10^6/uL 4.40 Hgb (11.2-15.7) g/dL 12.4 Hct (36.0-46.0) % 37.0 MCV (80-95) fL 84.1 MCH (27.0-33.0) pg 28.2 MCHC (32.0-36.0) % 33.5 RDW (11.7-14.6) % 12.9 Plt Count (130-400) 10^3/uL 181 MPV (8.0-11.0) fL 11.3 H Immature Gran % 0.0 Neutrophils % 58.0 Lymphocytes % 26.0 Atypical Lymphs % 3 Monocytes % 13.0 Eosinophils % 0.0 Basophils % 0.0 Nucleated RBC % % 0 Absolute Neutrophils (1.2-6.7) 10^3/uL 2.94 Absolute Lymphocytes (1.2-3.4) 10^3/uL 1.47 Absolute Monocytes (0.1-0.8) 10^3/uL 0.66 Absolute Eosinophils (0.0-0.7) 10^3/uL 0.00 Absolute Basophils (0.0-0.2) 10^3/uL 0.00 RBC Morphology Normal Sodium (136-145) mmol/L 128 L Potassium (3.5-5.1) mmol/L 3.6 Chloride (98-107) mmol/L 92 L Carbon Dioxide (21.0-32.0) mmol/L 26.1 Anion Gap (3-11) mmol/L 9.9 BUN (7-18) mg/dL 12 Creatinine (0.55-1.02) mg/dL 0.7 Estimated GFR/1.73 m2 (mL/min/1.73m2) >= 60.00 Glucose (74-106) mg/dL 113 H Calcium (8.5-10.1) mg/dL 8.1 L Total Bilirubin (0.2-1.0) mg/dL 0.5 AST (15-37) U/L 127 H ALT (14-59) U/L 141 H Alkaline Phosphatase (46-116) U/L 85 Total Protein (6.4-8.2) g/dL 6.7 Albumin (3.4-5.0) g/dL 3.3 L
== END 2021-05-28 15:20 | disposition home or self-care (01) ==
PROVIDERS: Emergency Provider Physician Assistant; PCP Nurse Practitioner Family
DX: U07.1 COVID-19 (principal)
CPT/HCPCS: 36415; 80053; 96360; 99284; 71045; 85025; 99283

== ENCOUNTER 2021-05-31 19:56 | Inpatient (IN) | payer MEDICAID, SELFPAY ==
[2021-05-31] VITALS (29 sets, daily range): BP systolic 128–178; BP diastolic 46–93; PULSE 62–86; RESP 17–31; TEMP 35.8–36.7; O2SAT 86–95
--- NOTE | 2021-05-31 20:00 | RT.EKG_ITS ---
APPROVED REPORT Exam: Resting ECG Reason for Exam: covid positive Patient Location: E HR:72 bpm ECG Measurements Heart Rate 72 AXIS OR 127 P 65 QRSd 73 QRS -17 QT 380 T 114 QTc 418 Conclusion Sinus rhythm...normal P axis, V-rate 60- 99 LVH with secondary repolarization abnormality...multi-LVH criteria, abnrm ST-T
--- NOTE | 2021-05-31 20:00 | DI.CT_ITS ---
Exam(s) CT CHEST PE CTA EXAM: CT CHEST PE CTA CLINICAL HISTORY: hypoxia, shortness of breath. TECHNIQUE: Imaging Protocol: CT angiography of the chest was performed using pulmonary embolus keturah col. Multi planar reconstructions were performed. CONTRAST MATERIAL: Intravenous: Omnipaque 350 Contrast volume: 100 cc COMPARISON: No exams were available for comparison FINDINGS: CHEST: PULMONARY ARTERIES: There are no intraluminal filling defects to suggest acute pulmonary emboli. LUNGS: There are bilateral infiltrates, most prominent in both lower lobes but involving all segments of both lobes. Comprised of both ground-glass and confluent infiltrates, not associated with pleura l effusions. No focal findings in the trachea and mainstem bronchi. MEDIASTINUM: There is no hilar nor mediastinal adenopathy. Visualized thyroid unremarkable. CARDIAC: Heart size is upper normal. There is no pericardial effusion.Caliber of the thoracic aorta is within normal limits. There is no significant shift of the interventricular septum. PARTIALLY VISUALIZED UPPERMOST ABDOMEN: There is a well-defined hypodensity in the liver which measur es 1.8 by 1.5 cm, probably a cyst. No significant adrenal masses. OSSEOUS: No significant osseous lesions.. IMPRESSION: 1. No evidence of acute pulmonary emboli. 2. There are extensive bilateral infiltrates, most prominent both lower lobes and suspicious for Covi d 19 disease. No pleural effusions. RADIATION DOSE DELIVERED: 315.5mGy.cm Total DLP DATA REPOSITORY: All CT scans at this facility are submitted to the National Radiology Data Registry (NRDR) Dose Index Registry (DIR) with the [employer] ([employer]). RADIATION OPTIMIZATION: All CT scans at this facility use at least one of these dose optimization te chniques: automated exposure control; mA and/or kV adjustment per patient size (includes targeted exa ms where dose is matched to clinical indication); or iterative reconstruction.
--- NOTE | 2021-05-31 20:21 | W.ED.GENAD ---
Discharge Plan Disposition Patient Disposition: [facility] INPATIENT Condition: Stable Discharge Details Clinical Impression: COVID, Shortness of breath Primary Care Provider: Jese Gonzalez ED Provider: Willi Llanos Home Meds and New Rx's Prescriptions: No Action hydrochlorothiazide 12.5 mg capsule 12.5 mg PO DAILY Qty: 90 RF: 12 multivitamin [Daily Multi-Vitamin] tablet 1 tab PO DAILY AM Qty: 90 RF: 12 acetaminophen [Acetaminophen Extra Strength] 500 mg tablet 1,000 mg PO Q6H PRN PRN (Reason: fever or pain) Qty: 180 RF: 4 amlodipine 5 mg tablet 5 mg PO DAILY Qty: 90 RF: 12 aspirin [Aspir-81] 81 mg tablet,delayed release (DR/EC) 81 mg PO DAILY AM Qty: 90 RF: 12 ropinirole 1 mg tablet 1.5 mg PO HS Qty: 135 RF: 6 halobetasol propionate 0.05 % cream 1 applic TP DAILY RF: 0 cyanocobalamin (vitamin B-12) 1,000 mcg capsule 1,000 mcg PO DAILY RF: 0 magnesium oxide 400 mg magnesium capsule 400 mg PO DAILY RF: 0 ibuprofen [Ibuprofen IB] 200 MG tablet 200 - 600 mg PO PRN PRNRF: 0 Medical Decision Making 81 yo female with hx of htn, hld, not vaccinated for covid, comes in with complaint of her home oxygen saturation monitor being in the 80's tonight. She tested positive for covid about 8 days ago per patient and her cough resolved and today has felt mild fatigue with ambulation otherwise at rest not short of breath, no fevers, no chest pain. She is in no distress on exam speaking in full sentences though is noted to be hypoxic in the mid 80s. She has diminished breath sounds at the bases on exam otherwise clear lungs, no jvd, no leg swelling or calf tenderness. Suspect her hypoxia is from her known covid, will obtain labs to evaluate for cardiac ischemic, anemia, electrolyte abnormalities and obtain CTA to evaluate for possible PE labs show sodium of 125, and lfts mildly high which can be seen in patients who have or have recently had covid, awaiting cta results, she is 94% on 3L NC. CTA shows no Pe and typical ct findings for viral pneumonia. Patient hemodynamically stable stll requiring o2. Discussed with Dr. diez who accepts for admission Differential Diagnosis Differential Diagnosis: covid, pneumonia, pe Medical Records Medical records reviewed: Yes I reviewed the patient's medical records. Imaging Data Radiologic Study: Attestation: I personally reviewed and interpreted this imaging study as follows: Imaging: CT Scan Radiologist's impression: 1. No PE 2. Commonly reported imaging features of viral pneumonia are present. Lab Data Lab results reviewed: Yes I reviewed the patient's lab results. ECG Data Attestation: I personally reviewed and interpreted this ECG (s) as follows: Prior ECG tracings: not available for review Interpretation: sinus rhythm, rate of 72, LVH, no acute st twave ischemic findings HPI General Mode of arrival: ambulatory. Date/Time Provider Initiated Documentation: 05/31/21 19:57. Limitations to Documentation: no limitations. Information obtained by: patient. History of Present Illness 81 year old F presents to the emergency department with the chief complaint of low oxygen level, Patient started experiencing this day(s) (1) and it has been constant. No relieving factors improve symptom(s), No exacerbating factors reported . Patient notes no other symptoms.. Patient did receive the following treatments prior to arrival, none Related Data Home Medications Medication Instructions Recorded Confirmed ibuprofen [Ibuprofen IB] 200 - 600 mg PO PRN PRN 03/10/14 05/31/21 acetaminophen 500 mg tablet 1,000 mg PO Q6H PRN PRN #180 tab 08/04/18 05/31/21 amlodipine 5 mg tablet 5 mg PO DAILY #90 tab-cap 08/04/18 05/31/21 hydrochlorothiazide 12.5 mg capsule 12.5 mg PO DAILY #90 tab-cap 08/04/18 05/31/21 multivitamin 1 tab PO DAILY AM #90 tab-cap 08/04/18 05/31/21 aspirin 81 mg tablet,delayed 81 mg PO DAILY AM #90 tab-cap 11/11/18 05/31/21 release ropinirole 1 mg tablet 1.5 mg PO HS #135 tab 11/11/18 05/31/21 cyanocobalamin (vitamin B-12) 1,000 mcg PO DAILY 06/30/19 05/31/21 1,000 mcg capsule halobetasol propionate 0.05 % 1 applic TP DAILY 06/30/19 05/31/21 topical cream magnesium oxide 400 mg PO DAILY 06/30/19 05/31/21 Previous Rx's Medication Instructions Recorded acetaminophen 500 mg tablet 1,000 mg PO Q6H PRN PRN #180 tab 08/04/18 amlodipine 5 mg tablet 5 mg PO DAILY #90 tab-cap 08/04/18 hydrochlorothiazide 12.5 mg capsule 12.5 mg PO DAILY #90 tab-cap 08/04/18 multivitamin 1 tab PO DAILY AM #90 tab-cap 08/04/18 aspirin 81 mg tablet,delayed 81 mg PO DAILY AM #90 tab-cap 11/11/18 release ropinirole 1 mg tablet 1.5 mg PO HS #135 tab 11/11/18 Allergies Allergy/AdvReac Type Severity Reaction Status Date / Time No Known Allergies Allergy Unverified 05/31/21 20:14 General Stated Complaint: RespSymp JOE: 2 Review of Systems All systems reviewed & are unremarkable except as noted in HPI and below Constitutional Constitutional: Denies chills and Denies fever(s) Cardiovascular Cardiovascular: Denies chest pain and Denies dyspnea Respiratory Respiratory: Denies cough and Denies dyspnea Gastrointestinal Gastrointestinal: Denies abdominal pain, Denies nausea and Denies vomiting Musculoskeletal Musculoskeletal: Denies joint swelling [facility] Medical History Degenerative cervical disc (11/21/15) 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 Asthma Father Personal history of malignant neoplasm SMALL BOWEL Sister Personal history of malignant neoplasm BREAST Brother Personal history of malignant neoplasm Sister No problems noted. Sister Personal history of malignant neoplasm Brother No problems noted. Son No problems noted. Son No problems noted. Son No problems noted. Daughter No problems noted. Daughter No problems noted. Social History Smoking/Tobacco Use Status: Never Smoking risk assessment performed?: Yes Alcohol Intake: never Drug use: Never Substance use type: does not use Household members: other Details: 2 Pets and animals: No What type of physical activity do you participate in: none Luba/Restoration: OTHER Do you feel safe at home: Yes Do you feel safe in your relationship?: Yes Female Reproductive History Menstrual Menopause type: natural History History 6 Para 5 Hx # Term Pregnancies 5 Multiple births Hx # Pregnancies Ectopic pregnancies AB induced Hx Number of Living Children 5 AB spontaneous Exam Const General: no acute distress Orientation: alert HENMT Head: normal to inspection Ears: external ears normal General nose exam: external nose normal Mouth: moist mucous membranes Eyes General: appearance normal, both eyes and all related structures Neck Neck: normal visual inspection Resp Effort & Inspection: normal respiratory effort and able to speak in complete sentences Cardio Rate: regular rate Skin General skin exam: no rashes or lesions noted Neuro General: patient alert and patient oriented x3 Extrem General: normal to inspection Psych Mental Status: mental status grossly normal Course Vital Signs Vital signs: Vital Signs Temperature 36.7 C 05/31/21 20:08 Pulse 78 05/31/21 20:08 Respiratory Rate 28 H 05/31/21 20:08 Blood Pressure 142/93 H 05/31/21 20:08 Pulse Oximetry 87 L 05/31/21 20:08 Temperature 36.7 C 05/31/21 20:08 Temperature Source Temporal Artery Scan 05/31/21 20:08 Pulse 70 05/31/21 20:16 Pulse 73 05/31/21 20:16 Respiratory Rate 29 H 05/31/21 20:16 Respiratory Effort 05/31/21 20:17 Respiratory Depth Normal 05/31/21 20:17 Blood Pressure 147/52 H 05/31/21 20:16 Blood Pressure Mean 74 05/31/21 20:16 Blood Pressure Position Sitting 05/31/21 20:08 Pulse Oximetry 92 05/31/21 20:16 Oxygen Delivery Method Room Air 05/31/21 20:08 Oxygen Flow Rate 0 05/31/21 20:08 Pain Level 0 05/31/21 20:08
[2021-05-31 20:38] LABS: Abs Immature Grans 0.05 10^3/uL (0.0-0.06); Absolute Basophil Count 0.01 10^3/uL (0.0-0.2); Absolute Lymphocyte Count 2.31 10^3/uL (1.2-3.4); Absolute Monocyte Count 0.76 10^3/uL (0.1-0.8); Basophils % 0.1; HCT 38.2 % (36.0-46.0); HGB 13.2 g/dL (11.2-15.7); Immature Grans % 0.7; Lymphocytes % 32.9; MCHC 34.6 % (32.0-36.0); MCV 81.1 fL (80-95); Monocytes % 10.8; Neutrophils % 55.5; Nucleated RBC 0 %; Platelet Count 274 10^3/uL (130-400); RBC 4.71 10^6/uL (3.93-5.22); RDW 13.1 % (11.7-14.6); RDW-SD 38.4 fL; Source Nasal/Nares; WBC 7.03 10^3/uL (4.4-10.8)
--- NOTE | 2021-05-31 20:46 | NUR.NOTE ---
To VIKY doe with [facility]isel[facility] Note:
[2021-05-31 20:56] LABS: ALT 203 U/L (14-59); AST 202 U/L (15-37); Albumin 3.3 g/dL (3.4-5.0); Alkaline Phosphatase 129 U/L (46-116); Anion Gap 9.2 mmol/L (3-11); BUN 11 mg/dL (7-18); Bilirubin, Total 0.6 mg/dL (0.2-1.0); CO2 25.8 mmol/L (21.0-32.0); CREATININE 0.8 mg/dL (0.55-1.02); Calcium 8.2 mg/dL (8.5-10.1); Chloride 90 mmol/L (98-107); Glucose 113 mg/dL (74-106); Potassium 3.2 mmol/L (3.5-5.1); Sodium 125 mmol/L (136-145); Troponin I < 0.05 ng/mL (<0.06)
[2021-05-31] MEDS: Omnipaque 350 MG/ML 100 ML BTL IJ (21:04)
[2021-05-31] MEDS: Normal Saline Flush 10 ML SYR IVP (21:05)
[2021-05-31] MEDS: Normal Saline 1,000 ML 75 ML IV (21:09)
[2021-05-31] MEDS: Potassium Chloride 20 MEQ TABCR 40 MEQ PO ×2 (21:11→23:19)
[2021-05-31] MEDS: Dexamethasone 10 MG/ML VIAL IVP (21:12)
--- NOTE | 2021-05-31 21:28 | DI.VRAD_ITS ---
PROCEDURE INFORMATION: Exam: CTA Chest With Contrast Exam date and time: 05/31/2021 8:12 PM Age: 81 years old Clinical indication: Shortness of breath TECHNIQUE: Imaging protocol: Computed tomographic angiography of the chest with contrast. 3D rendering (Not supervised by radiologist): MIP and/or 3D reconstructed images were created by the technologist. Total images: 1593 Contrast material: OMNIPAQUE 350; Contrast volume: 100 ml; Contrast route: INTRAVENOUS (IV); COMPARISON: CR XR PORTABLE CHEST AP 05/28/2021 1:39 PM FINDINGS: Pulmonary arteries: No main, lobar or segmental pulmonary arterial embolism. Aorta: Unremarkable. No aortic aneurysm. No aortic dissection. Lungs: There are bilateral, peripheral predominant ground-glass opacities. Pleural spaces: Unremarkable. No pneumothorax. No pleural effusion. Heart: Unremarkable. No cardiomegaly. No pericardial effusion. Lymph nodes: Unremarkable. No enlarged lymph nodes. Liver: There is a right liver cyst. Bones/joints: Unremarkable. No acute fracture. Soft tissues: Unremarkable. IMPRESSION: 1. No pulmonary arterial embolism. 2. Commonly reported imaging features of viral pneumonia are present. Dictated and Authenticated by: Sabina Pagan MD. Ordering:MARCO Márquez MD
[2021-05-31 21:35] LABS: COVID-19 PCR POSITIVE (Negative)
--- NOTE | 2021-05-31 21:52 | NUR.NOTE ---
Up to bedside commode. Voids without difficulty. Performs own pericare.Nursing Note:
--- NOTE | 2021-05-31 22:09 | NUR.NOTE ---
INcreased work of breathing noted after patient up to commode. Nasal cannula in place to bilateral nares. Oxygen increased to 4L, good pleth. SpO2 90%.Nursing Note:
--- NOTE | 2021-05-31 22:26 | NUR.NOTE ---
Report to PINA Barber. Room 218.Nursing Note:
[2021-05-31 22:40] LABS: C-Reactive Protein 1.43 mg/dL (0.0-0.3)
[2021-05-31 22:56] LABS: D-Dimer 1151 ng/mlFEU (<500)
[2021-05-31] MEDS: rOPINIRole 0.5 MG TAB 1.5 MG PO (23:19)
[2021-05-31] MEDS: Enoxaparin 40 MG/0.4 ML SYR SC (23:20)
[2021-05-31 23:49] LABS: Troponin I < 0.05 ng/mL (<0.06)
[2021-05-31] MEDS: REMDESIVIR 200 MG in Normal Saline 250 ML 250 MG IVPB (23:59)
[2021-06-01] VITALS (8 sets, daily range): BP systolic 133–155; BP diastolic 56–85; PULSE 56–84; RESP 16–20; TEMP 35.5–37.2; O2SAT 88–93
[2021-06-01] MEDS: Water,Injection,Sterile 10 ML VIAL ×2 (00:18→00:19)
--- NOTE | 2021-06-01 05:33 | HPE_ITS ---
Date of service: 06/01/21 Time of Service: 05:33 Assessment and Plan Assessment and plan (1) COVID: Status: Acute Assessment and plan: Dexamethasone 6 mg IV daily. Remdesivir 200mg IV initially then 100mg IV daily. Pulmonary consult. Prone as able. If oxygenation status worsens, CPAP with Highflow O2 breaks. Monitor inflammatory markers. (2) Restless legs: Status: Chronic Assessment and plan: Cont ropinirole as per home dosage. (3) Essential hypertension: Status: Chronic Assessment and plan: Cont amlodipine and HCTZ Monitor (4) Hyponatremia: Status: Acute Assessment and plan: Will not initiate NS at this time given concerns for volume overload in background of COVID PNA. 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 (5) Hypokalemia: Status: Acute Assessment and plan: Oral replacement Monitor. History of Present Illness History of Present Illness Chief Complaint: Hypoxemia Narrative: This is an 81 yo female with a recent (05/28/21) dx of Covid PNA, lumbar stenosis, HLD, HTN. She was discharged from the ED at [facility] on 05/28/21 with newly diagnosed Covid PNA (unvaccinated). She was sent home with an O2 saturation monitor. She returned to the ED after noting O2 saturation readings in the 80's. She otherwise endorsed that her cough had resolved but she was noting more fatigue. No shortness of breath / dyspnea. No F/C, CP/palpitations, N/V/abd pain. When placed on 3L supplemental O2 per NC her O2 saturation improved to 94%. Lab values: WBC count normal. D-dimer 1151, CRP 1.43. K 3.2.Na 125. AST 202, ALT 201. Troponin neg. IV Dexamethasone administered in the ED. 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 Asthma Father Personal history of malignant neoplasm SMALL BOWEL Sister Personal history of malignant neoplasm BREAST Brother Personal history of malignant neoplasm Sister No problems noted. Sister Personal history of malignant neoplasm Brother No problems noted. Son No problems noted. Son No problems noted. Son No problems noted. Daughter No problems noted. Daughter No problems noted. Social History Smoking/Tobacco Use Status: Never Smoking risk assessment performed?: Yes Alcohol Intake: never Drug use: Never Substance use type: does not use Household members: other Details: 2 Pets and animals: No What type of physical activity do you participate in: none Luba/Protestant: OTHER Do you feel safe at home: Yes Do you feel safe in your relationship?: Yes Female Reproductive History Menstrual Menopause type: natural History History 6 Para 5 Hx # Term Pregnancies 5 Multiple births Hx # Pregnancies Ectopic pregnancies AB induced Hx Number of Living Children 5 AB spontaneous Meds Allergies and Home Medications Allergies Allergy/AdvReac Type Severity Reaction Status Date / Time No Known Allergies Allergy Unverified 05/31/21 20:14 Home Medications Medication Instructions Recorded Confirmed Type ibuprofen [Ibuprofen IB] 200 - 600 mg PO PRN PRN 03/10/14 05/31/21 History acetaminophen 500 mg tablet 1,000 mg PO Q6H PRN PRN #180 tab 08/04/18 05/31/21 R x amlodipine 5 mg tablet 5 mg PO DAILY #90 tab-cap 08/04/18 05/31/21 Rx hydrochlorothiazide 12.5 mg capsule 12.5 mg PO DAILY #90 tab-cap 08/04/18 05/31/21 Rx multivitamin 1 tab PO DAILY AM #90 tab-cap 08/04/18 05/31/21 Rx aspirin 81 mg tablet,delayed 81 mg PO DAILY AM #90 tab-cap 11/11/18 05/31/21 Rx release ropinirole 1 mg tablet 1.5 mg PO HS #135 tab 11/11/18 05/31/21 Rx cyanocobalamin (vitamin B-12) 1,000 mcg PO DAILY 06/30/19 05/31/21 History 1,000 mcg capsule halobetasol propionate 0.05 % 1 applic TP DAILY 06/30/19 05/31/21 History topical cream magnesium oxide 400 mg PO DAILY 06/30/19 05/31/21 History Exam Const General: cooperative and no acute distress Nutritional Appearance: overweight Orientation: alert and oriented x3 HENMT Head: normocephalic and atraumatic Neck Neck: no JVD Resp Effort & Inspection: normal respiratory effort Auscultation: rales bilaterally at the base Cardio Rate: regular rate Rhythm: regular rhythm Heart Sounds: S1 normal and S2 normal GI Palpation: soft and nontender Auscultation: normal bowel sounds Neuro General: no focal motor deficits Cognition: normal cognition Extrem General: no clubbing, cyanosis or edema and no calf tenderness Results Labs Result diagrams: 06/01/21 07:15 05/31/21 20:20 Labs: Laboratory Results - last 24 hr 05/31/21 05/31/21 05/31/21 20:12 20:20 20:20 WBC RBC Hgb Hct MCV MCH MCHC RDW Plt Count MPV Immature Gran % Neutrophils % Lymphocytes % Monocytes % Eosinophils % Basophils % Nucleated RBC % Absolute Neutrophils Absolute Lymphocytes Absolute Monocytes Absolute Eosinophils Absolute Basophils D-Dimer 1151 H Sodium 125 L Potassium 3.2 L Chloride 90 L Carbon Dioxide 25.8 Anion Gap 9.2 BUN 11 Creatinine 0.8 Estimated GFR/1.73 m2 >= 60.00 Glucose 113 H Calcium 8.2 L Magnesium Total Bilirubin 0.6 AST 202 H ALT 203 H Alkaline Phosphatase 129 H Troponin I < 0.05 C-Reactive Protein 1.43 H Total Protein 7.0 Albumin 3.3 L COVID-19 Source Nasal/Nares SARS-CoV-2 (PCR) POSITIVE A* 05/31/21 05/31/21 05/31/21 20:20 20:20 23:15 WBC 7.03 RBC 4.71 Hgb 13.2 Hct 38.2 MCV 81.1 MCH 28.0 MCHC 34.6 RDW 13.1 Plt Count 274 MPV 11.0 Immature Gran % 0.7 Neutrophils % 55.5 Lymphocytes % 32.9 Monocytes % 10.8 Eosinophils % 0.0 Basophils % 0.1 Nucleated RBC % 0 Absolute Neutrophils 3.90 Absolute Lymphocytes 2.31 Absolute Monocytes 0.76 Absolute Eosinophils 0.00 Absolute Basophils 0.01 D-Dimer Sodium Potassium Chloride Carbon Dioxide Anion Gap BUN Creatinine Estimated GFR/1.73 m2 Glucose Calcium Magnesium 2.0 Total Bilirubin AST ALT Alkaline Phosphatase Troponin I < 0.05 C-Reactive Protein Total Protein Albumin COVID-19 Source SARS-CoV-2 (PCR) Last Vital Signs Temp 35.5 C L 06/01/21 02:25 Pulse 62 06/01/21 02:25 Resp 20 06/01/21 02:25 BP 135/56 L 06/01/21 02:25 Pulse Ox 90 L 06/01/21 02:25
--- NOTE | 2021-06-01 07:30 | RT.EKG_ITS ---
APPROVED REPORT Exam: Resting ECG Reason for Exam: Low heart rate Patient Location: I HR:71 bpm ECG Measurements Heart Rate 71 AXIS KS 129 P 70 QRSd 71 QRS -17 QT 401 T 90 QTc 431 Conclusion Sinus rhythm...normal P axis, V-rate 60- 99 Atrial premature complex...SV complex w/ short R-R interval Low voltage, precordial leads...precordial leads <1.0mV
[2021-06-01 07:44] LABS: Abs Immature Grans 0.05 10^3/uL (0.0-0.06); Absolute Lymphocyte Count 1.61 10^3/uL (1.2-3.4); Absolute Monocyte Count 0.22 10^3/uL (0.1-0.8); Absolute Neutrophil Count 1.93 10^3/uL (1.2-6.7); HCT 35.5 % (36.0-46.0); HGB 12.2 g/dL (11.2-15.7); Immature Grans % 1.3; Lymphocytes % 42.3; MCH 28.4 pg (27.0-33.0); MCHC 34.4 % (32.0-36.0); MCV 82.8 fL (80-95); MPV 10.6 fL (8.0-11.0); Monocytes % 5.8; Neutrophils % 50.6; Nucleated RBC 0 %; Platelet Count 293 10^3/uL (130-400); RBC 4.29 10^6/uL (3.93-5.22); RDW 13.2 % (11.7-14.6); RDW-SD 39.8 fL; WBC 3.81 10^3/uL (4.4-10.8)
--- NOTE | 2021-06-01 08:08 | PGE_ITS ---
Date of Service Date of service: 06/01/21 Time of Service: 08:09 Assessment and Plan Assessment and plan (1) Pneumonia due to COVID-19 virus: Status: Acute Assessment and plan: decadron, Remdesivir, atorvastatin, anticoagulation; follow daily inflammatory markers (CRP, dimer), CBC, CMP; check procalcitonin and repeat in 48 hr, telemetry monitoring and continuous pulse oximetry. Encourage patient to practice prone technique (or at least be up out of bed as much as possible and when in bed rotate from side to side rather than lying on her back). will give her Tessalon perles for her cough. (2) Hypokalemia: Status: Acute Assessment and plan: dc HCTZ and give oral replacments, monitor levels (3) Hyponatremia: Status: Acute Assessment and plan: probably d/t her use of HCTZ and possible SIADH from her COVID pneumonia. I have dc'ed her iv fluids (to be avoided in COVID 19 unless clinically dehydrated which she is not. (4) Essential hypertension: Status: Chronic Assessment and plan: continue amlodipine. hold HCTZ for now. If her BP becomes significantly elevated then could put her on low dose TERRI I or ARB. Subjective Subjective Interval history since last seen: Patient admitted last night d/t progressive hypoxemia, nonproductive cough and fatigue and hyponatremia in setting of COVID- 19 pneumonia. She is unvaccinated and first tested positive 8 days ago (05/24). She was evaluated in the ER on 05/27 but did not require admission and was sent home w/ home pulse oximeter. She came to the ER last night d/t worsening fatigue and low SPO2 running in the 80's%. CTA chest showed bilateral peripheral ground glass opacities c/w COVID19 but no PE and her nasal PCR was tested again last night and positive for SARS-COV2. her other inflammatory markers are high including d-dimer of 1151, CRP 1.43, elevated transaminases. She has hyponatremia, sodium 128, and hypokalemia 3.2 w/ normal BUN and creatinine 11 and 0.8. Troponin I were normal x 2 sets. Patient is currently on oxygen at 4 LPM. She denies any CP or dyspnea but has dry cough. I was called urgently in to see her this morning while receiving sign out from the medical detailist, because matthew zavaleta's telemetry allegedly showed her HR in the 20's to 30's. As it turned out one of her leads was loose and only intermittently picking up. Stat EKG was done and showed NSR rate of 71 bpm. She has borderline LVH but no acute injruy or ischemia pattern. She has occassional PAC's but no AV block. Patient was started on Remdesivir and decadron last night. She was also given IV fluids (NS), however she is also on HCTZ. I have stopped her iv fluids (sodium is now up to 131), she shows no signs of dehydration and I have put her HCTZ on hold for now. She was put on lovenox 40 mg SC but I have increased this to full anticoagulation for now until we see her d-dimer trend down. Patient has no purulent sputum production and no fevers. She was not put on antibiotics and I have refrained from doing so unless she has purulent sputum or her procalcitonin rises (it was not checked on admission so I ordered one and will repeat it in 48 hr and if remains negative then no need for antibiotics. Exam Narrative Exam Narrative: Elderly white female lying in bed in semi-wells position. alert and oriented and able to talk in full sentences, no respiratory distress, SPO2 currently 88% Lungs: diffuse bilateral dry rales, no wheezing Heart: regular (she is not bradycardic contrary to initial report), no murmur or rub or gallops Abdomen: soft, nontender and nondistended w/ active bowel sounds Extremities: no edema or tenderness and no rashes Objective Last Vital Signs Temp 35.5 C L 06/01/21 02:25 Pulse 56 L 06/01/21 07:00 Resp 20 06/01/21 02:25 BP 135/56 L 06/01/21 02:25 Pulse Ox 90 L 06/01/21 02:25 Laboratory Results - last 24 hr 05/31/21 05/31/21 05/31/21 20:12 20:20 20:20 WBC RBC Hgb Hct MCV MCH MCHC RDW Plt Count MPV Immature Gran % Neutrophils % Lymphocytes % Monocytes % Eosinophils % Basophils % Nucleated RBC % Absolute Neutrophils Absolute Lymphocytes Absolute Monocytes Absolute Eosinophils Absolute Basophils D-Dimer 1151 H Sodium 125 L Potassium 3.2 L Chloride 90 L Carbon Dioxide 25.8 Anion Gap 9.2 BUN 11 Creatinine 0.8 Estimated GFR/1.73 m2 >= 60.00 Glucose 113 H Calcium 8.2 L Magnesium Total Bilirubin 0.6 AST 202 H ALT 203 H Alkaline Phosphatase 129 H Troponin I < 0.05 C-Reactive Protein 1.43 H Total Protein 7.0 Albumin 3.3 L COVID-19 Source Nasal/Nares SARS-CoV-2 (PCR) POSITIVE A* 05/31/21 05/31/21 05/31/21 20:20 20:20 23:15 WBC 7.03 RBC 4.71 Hgb 13.2 Hct 38.2 MCV 81.1 MCH 28.0 MCHC 34.6 RDW 13.1 Plt Count 274 MPV 11.0 Immature Gran % 0.7 Neutrophils % 55.5 Lymphocytes % 32.9 Monocytes % 10.8 Eosinophils % 0.0 Basophils % 0.1 Nucleated RBC % 0 Absolute Neutrophils 3.90 Absolute Lymphocytes 2.31 Absolute Monocytes 0.76 Absolute Eosinophils 0.00 Absolute Basophils 0.01 D-Dimer Sodium Potassium Chloride Carbon Dioxide Anion Gap BUN Creatinine Estimated GFR/1.73 m2 Glucose Calcium Magnesium 2.0 Total Bilirubin AST ALT Alkaline Phosphatase Troponin I < 0.05 C-Reactive Protein Total Protein Albumin COVID-19 Source SARS-CoV-2 (PCR) 06/01/21 07:15 WBC 3.81 L D RBC 4.29 Hgb 12.2 Hct 35.5 L MCV 82.8 MCH 28.4 MCHC 34.4 RDW 13.2 Plt Count 293 MPV 10.6 Immature Gran % 1.3 Neutrophils % 50.6 Lymphocytes % 42.3 Monocytes % 5.8 Eosinophils % 0.0 Basophils % 0.0 Nucleated RBC % 0 Absolute Neutrophils 1.93 Absolute Lymphocytes 1.61 Absolute Monocytes 0.22 Absolute Eosinophils 0.00 Absolute Basophils 0.00 D-Dimer Sodium Potassium Chloride Carbon Dioxide Anion Gap BUN Creatinine Estimated GFR/1.73 m2 Glucose Calcium Magnesium Total Bilirubin AST ALT Alkaline Phosphatase Troponin I C-Reactive Protein Total Protein Albumin COVID-19 Source SARS-CoV-2 (PCR)
[2021-06-01 08:18] LABS: ALT 178 U/L (14-59); AST 165 U/L (15-37); Albumin 2.7 g/dL (3.4-5.0); Alkaline Phosphatase 114 U/L (46-116); Anion Gap 9.2 mmol/L (3-11); BUN 12 mg/dL (7-18); Bilirubin, Total 0.4 mg/dL (0.2-1.0); CO2 22.8 mmol/L (21.0-32.0); CREATININE 0.7 mg/dL (0.55-1.02); Calcium 7.9 mg/dL (8.5-10.1); Chloride 99 mmol/L (98-107); Glucose 160 mg/dL (74-106); Potassium 4.9 mmol/L (3.5-5.1); Sodium 131 mmol/L (136-145); Total Protein 5.5 g/dL (6.4-8.2)
[2021-06-01 09:16] LABS: NT-proBNP 198 pg/mL (<300)
[2021-06-01] MEDS: amLODIPine 5 MG TAB PO (09:18)
[2021-06-01] MEDS: Dexamethasone 4 MG TAB 6 MG PO (09:18)
[2021-06-01] MEDS: Aspirin E.C. 81 MG TABEC PO (09:18)
[2021-06-01] MEDS: Magnesium Oxide 400 MG TAB PO (09:19)
[2021-06-01] MEDS: Multivitamin TAB 1 TAB PO (09:19)
[2021-06-01 11:56] LABS: Procalcitonin < 0.1 ng/mL
[2021-06-01] MEDS: Enoxaparin 80 MG/0.8 ML SYR 70 MG SC ×2 (12:36→21:55)
--- NOTE | 2021-06-01 13:47 | INITIAL_ITS ---
- If Service Date Differs Date of service: 06/01/21 Time of Service: 13:54 Care Management Initial Assess REASON FOR HOSPITALIZATION:: Hypoxia, Covid Positive PAST MEDICAL HISTORY/PAST SURGICAL HISTORY:: Degenerative cervical disc (11/21/15). 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 Essential hypertension. Hyperlipidemia. Osteopenia. 11/25 DEXA: -2.2/-1.4/-1.5. Pelvic organ prolapse quantification stage 3 cystocele. Restless legs (04/20/13). Shoulder pain. RIGHT~FROZEN. Skin tag. 12/18/16 multiple, irritated. Spinal stenosis of lumbar region (01/19/10). Tongue lesion. Surgical History . Colonoscopy - MAC (~2004). neg PREVIOUS FUNCTIONAL STATUS/SOCIAL/FAMILY SUPPORTS:: Millicent resides in [place], [place]. She is and it appears her daughter, Sandra resides with her. She is independent at baseline with ADLs per loan operations manager. CURRENT FUNCTIONAL STATUS:: CM was unable to connect with Millicent or her family today, but will continue to follow. ADVANCE DIRECTIVES:: On file: Sandra Abebe as agent, Xochitl as alternate. Hiram Gómez and Hima Casillas as others. Has patient been provided with info about the portal/API?: No Did the patient sign up for the portal?: No CODE STATUS:: Full Code INSURANCE COVERAGE / FINANCIAL ISSUES:: Medicaid CURRENT HOME/COMMUNITY SERVICES/EQUIPMENT:: None, currently. PRIMARY CARE PHYSICIAN:: Jese Gonzalez NP POTENTIAL DISCHARGE NEEDS:: Evaluation for increased needs, post COVID. Follow up appointments. Review of recommended quarantine guidelines. PATIENT/FAMILY EDUCATION NEEDS:: Review of discharge instructions, discuss Ask Me Three. Review of visitor policy. ANTICIPATED BARRIERS TO DISCHARGE:: None identified. TRANSPORTATION:: Via private vehicle with family. PLAN:: Anticipate Millicent will return home when ready per MD. She will follow up with her PCP and plan of care as prescribed. CM continues to follow.
[2021-06-01] MEDS: Atorvastatin 40 MG TAB PO (19:53)
[2021-06-01] MEDS: rOPINIRole 0.5 MG TAB 1.5 MG PO (19:53)
[2021-06-02] VITALS (9 sets, daily range): BP systolic 128–146; BP diastolic 47–78; PULSE 67–74; RESP 18–28; TEMP 35.6–36.8; O2SAT 82–91
[2021-06-02 07:19] LABS: Abs Immature Grans 0.14 10^3/uL (0.0-0.06); Absolute Basophil Count 0.02 10^3/uL (0.0-0.2); Absolute Lymphocyte Count 3.17 10^3/uL (1.2-3.4); Absolute Monocyte Count 1.31 10^3/uL (0.1-0.8); Absolute Neutrophil Count 7.17 10^3/uL (1.2-6.7); Basophils % 0.2; HCT 34.7 % (36.0-46.0); HGB 11.9 g/dL (11.2-15.7); Immature Grans % 1.2; Lymphocytes % 26.8; MCH 28.5 pg (27.0-33.0); MCHC 34.3 % (32.0-36.0); MPV 10.1 fL (8.0-11.0); Monocytes % 11.1; Neutrophils % 60.7; Nucleated RBC 0 %; Platelet Count 403 10^3/uL (130-400); RBC 4.18 10^6/uL (3.93-5.22); RDW 13.3 % (11.7-14.6); RDW-SD 40.6 fL; WBC 11.81 10^3/uL (4.4-10.8)
[2021-06-02 07:39] LABS: ALT 169 U/L (14-59); AST 126 U/L (15-37); Albumin 2.6 g/dL (3.4-5.0); Alkaline Phosphatase 105 U/L (46-116); BUN 18 mg/dL (7-18); Bilirubin, Total 0.4 mg/dL (0.2-1.0); CREATININE 0.6 mg/dL (0.55-1.02); Chloride 98 mmol/L (98-107); Glucose 128 mg/dL (74-106); Potassium 4.3 mmol/L (3.5-5.1); Sodium 127 mmol/L (136-145); Total Protein 5.7 g/dL (6.4-8.2)
[2021-06-02] MEDS: amLODIPine 5 MG TAB PO (07:39)
[2021-06-02] MEDS: Acetaminophen 325 MG TAB 650 MG PO (07:39)
[2021-06-02] MEDS: Aspirin E.C. 81 MG TABEC PO (07:39)
[2021-06-02] MEDS: Magnesium Oxide 400 MG TAB PO (07:39)
[2021-06-02] MEDS: Dexamethasone 4 MG TAB 6 MG PO (07:39)
[2021-06-02 07:40] LABS: C-Reactive Protein 0.64 mg/dL (0.0-0.3)
[2021-06-02] MEDS: Multivitamin TAB 1 TAB PO (07:40)
[2021-06-02 08:11] LABS: D-Dimer 560 ng/mlFEU (<500)
--- NOTE | 2021-06-02 09:24 | CMPROGNOTE_ITS ---
- If Service Date Differs Date of service: 06/02/21 Time of Service: 09:24 Care Management Progress Note S/O: CM spoke with Millicent over the phone due to her covid-19 diagnosis. Millicent reports that she is feeling much better and denies sob. She is still on oxygen however she is anticipating that being titrated down soon. She has been able to ambulate around her room and is staying busy watching TV and taking with her family members. She shares that she's talked to all her family on the phone and they are taking turns chatting with her. CM continues to support. A: 81 year old female admitted to [facility] on 05/31/21 for Hypoxia, covid-19 P: Anticipate Millicent will return home with no new services when medically cleared by . Millicent will follow up with her PCP and plan of care as prescribed. SAMANTHA continues to follow.
--- NOTE | 2021-06-02 09:37 | RESPIRATORY ---
0900: Pt resting comfortably in chair on 5L NC SpO2 90%, HR 71, RR 14. Pt diminished with fine crackles bilat bases.
[2021-06-02] MEDS: Enoxaparin 80 MG/0.8 ML SYR 70 MG SC ×2 (10:50→21:21)
--- NOTE | 2021-06-02 15:07 | PUCON_ITS ---
General Date Of Service Date of service: 06/02/21 Time of Service: 09:30 Requesting physician: Mathew Nobles Reason for Consult: Covid pneumonia Assessment and Plan Assessment and plan (1) Pneumonia due to COVID-19 virus: Status: Acute (2) Respiratory failure with hypoxia: Status: Acute Assessment and plan: This is an 81-year-old woman who is unvaccinated found to have Covid pneumonia. She appears to be doing well however does requ yonny pretty significant amounts of oxygen to maintain low saturations. She is certainly someone who should be wearing positive pressure at night while sleeping and with naps. She may also require high flow nasal cannula as she is almost maxed out on low flow nasal cannula at this moment. COVID-19 PNA with hypoxic respiratory failure - recommend CPAP at night and with naps (order placed) - recommend HFNC if needed to maintain saturations >90% - agree with Decadron, remdesivir and barcitinib - would recommend against full therapeutic A/C unless there is evidence of clot, she has no PE, but if concerned can obtain 4 extremity Duplex to rule this out. The risks associated with full A/C outweigh the benefits in patients without PE/DVT, particularly in the eldery. - ambulation and proning as tolerated - recommend incentive spirometry and VibraPEP Qualifiers: Chronicity: acute Qualified Code(s): J96.01 - Acute respiratory failure with hypoxia History of Present Illness Narrative: This is an 81-year-old unvaccinated female who was diagnosed with Covid pneumonia 05/28/2021. He was discharged from the ED at [facility] on 05/28/21 with an O2 saturation monitor to keep track of her O2 sats. She returned to the ED when she realized that her O2 saturations were reading in the 80s. Labs revealed slight elevations in her LFTs as well as her CRP and dimer however compared to yesterday these have been improving. Her chest CT shows scattered bilateral groundglass opacities superiorly however towards the bases she has evidence of more of an organizing pneumonia process occurring with more densely consolidated areas of lung tissue. No pulmonary emboli. Today she states that her breathing is much improved from previously, however she is requiring 5 L nasal cannula to maintain a saturation around 90%. She is certainly acting as though she is a happy hypoxic patient. Appetite has been good and she has been going to the bathroom in a normal manner. 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 Asthma Father Personal history of malignant neoplasm SMALL BOWEL Sister Personal history of malignant neoplasm BREAST Brother Personal history of malignant neoplasm Sister No problems noted. Sister Personal history of malignant neoplasm Brother No problems noted. Son No problems noted. Son No problems noted. Son No problems noted. Daughter No problems noted. Daughter No problems noted. Social History Smoking/Tobacco Use Status: Never Smoking risk assessment performed?: Yes Alcohol Intake: never Drug use: Never Substance use type: does not use Household members: other Details: 2 Pets and animals: No What type of physical activity do you participate in: none Luba/Judaism: OTHER Do you feel safe at home: Yes Do you feel safe in your relationship?: Yes Female Reproductive History Menstrual Menopause type: natural History History 6 Para 5 Hx # Term Pregnancies 5 Multiple births Hx # Pregnancies Ectopic pregnancies AB induced Hx Number of Living Children 5 AB spontaneous Visit Medication and Allergies Active Medications Generic Name Dose Route Start Last Admin Trade Name Freq PRN Reason Stop Dose Admin Acetaminophen 650 mg 05/31/21 21:50 06/02/21 07:39 Acetaminophen 325 Mg Tab PO 650 mg Q4H PRN PRN Administration Amlodipine Besylate 5 mg 06/01/21 08:30 06/02/21 07:39 Amlodipine 5 Mg Tab PO 5 mg DAILY HONEY Administration Aspirin 81 mg 06/01/21 08:30 06/02/21 07:39 Aspirin E.C. 81 Mg Tabec PO 81 mg DAILY HONEY Administration Atorvastatin Calcium 40 mg 06/01/21 20:00 06/01/21 19:53 Atorvastatin 40 Mg Tab PO 40 mg QPM HONEY Administration Baricitinib 4 mg 06/02/21 08:30 06/02/21 10:50 Baricitinib 1 Mg Tab PO 06/16/21 08:29 4 mg DAILY HONEY Administration Dexamethasone 6 mg 06/01/21 08:30 06/02/21 07:39 Dexamethasone 4 Mg Tab PO 6 mg DAILY HONEY Administration Dimethicone/Zinc Oxide 0 gm 05/31/21 21:50 [place] Protect Cream 142 Gm Tube TP PRN PRN Enoxaparin Sodium 70 mg 06/01/21 10:00 06/02/21 10:50 Enoxaparin 80 Mg/0.8 Ml Syr SC 70 mg Q12H HONEY Administration Sodium Chloride 500 mls @ 0 mls/hr 05/31/21 21:37 Saline 500ml Bag IV PRN PRN As Directed Remdesivir 100 mg/ Sodium 100 mls @ 100 mls/hr 06/01/21 22:00 06/01/21 23:02 Chloride IVPB 06/04/21 22:59 Infused DAILY@2200 [facility] Infusion IV Miscellaneous Supplies 1 each 05/31/21 21:45 Iv Access IV DIRECTED HONEY Magnesium Hydroxide 30 ml 05/31/21 21:50 Milk Of Magnesia 30 Ml Cup PO DAILY PRN PRN Magnesium Oxide 400 mg 06/01/21 08:30 06/02/21 07:39 Magnesium Oxide 400 Mg Tab PO 400 mg DAILY HONEY Administration Multivitamins 1 tab 06/01/21 08:30 06/02/21 07:40 Multivitamin Tab PO 1 tab DAILY HONEY Administration Polyethylene Glycol 17 gm 05/31/21 21:50 Polyethylene Glycol 3350 17 Gm Packet PO DAILY PRN PRN Constipation Ropinirole HCl 1.5 mg 05/31/21 22:00 06/01/21 19:53 Ropinirole 0.5 Mg Tab PO 1.5 mg HS HONEY Administration Sodium Chloride 0 ml 05/31/21 21:37 Normal Saline Flush 10 Ml Syr IVP PRN PRN Allergies No Known Allergies Allergy (Unverified 05/31/21 20:14) Exam Const General: no acute distress Nutritional Appearance: well nourished [facility] Head: normocephalic Ears: external ears normal General nose exam: nasal mucous membranes and turbinates normal Face and sinus: sinuses nontender Mouth: oropharynx normal and moist mucous membranes Teeth and gingiva: dentition normal Eyes General: appearance normal, both eyes and all related structures Pupils: PERRL Neck Neck: normal visual inspection and no lymphadenopathy Chest Chest: normal inspection of the chest Resp Effort & Inspection: normal respiratory effort Auscultation: diminished lung sounds, no rales, no rhonchi and no wheezes Cardio Rate: regular rate Rhythm: regular rhythm Heart Sounds: S1 normal, S2 normal and no murmurs Pulses: radial pulses present bilaterally GI Inspection: normal to inspection Palpation: soft Skin General skin exam: no rashes or lesions noted Neuro General: patient alert, patient awake and patient oriented x3 Extrem General: no clubbing, cyanosis or edema Psych Mental Status: mental status grossly normal Affect: normal affect Attitude: cooperative Results Last Vital Signs Temp 36.8 C 06/02/21 12:05 Pulse 72 06/02/21 12:05 Resp 18 06/02/21 12:05 BP 133/55 L 06/02/21 12:05 Pulse Ox 88 L 06/02/21 12:05 Labs Result diagrams: 06/02/21 06:57 06/02/21 06:57 Labs: Laboratory Results - last 24 hr 06/02/21 06/02/21 06/02/21 06:57 06:57 06:57 WBC RBC Hgb Hct MCV MCH MCHC RDW Plt Count MPV Immature Gran % Neutrophils % Lymphocytes % Monocytes % Eosinophils % Basophils % Nucleated RBC % Absolute Neutrophils Absolute Lymphocytes Absolute Monocytes Absolute Eosinophils Absolute Basophils D-Dimer 560 H Sodium 127 L Potassium 4.3 Chloride 98 Carbon Dioxide 22.0 Anion Gap 7.0 BUN 18 D Creatinine 0.6 Estimated GFR/1.73 m2 >= 60.00 Glucose 128 H Calcium 8.0 L Total Bilirubin 0.4 AST 126 H ALT 169 H Alkaline Phosphatase 105 C-Reactive Protein 0.64 H Total Protein 5.7 L Albumin 2.6 L 06/02/21 06:57 WBC 11.81 H D RBC 4.18 Hgb 11.9 Hct 34.7 L MCV 83.0 MCH 28.5 MCHC 34.3 RDW 13.3 Plt Count 403 H MPV 10.1 Immature Gran % 1.2 Neutrophils % 60.7 Lymphocytes % 26.8 Monocytes % 11.1 Eosinophils % 0.0 Basophils % 0.2 Nucleated RBC % 0 Absolute Neutrophils 7.17 H Absolute Lymphocytes 3.17 Absolute Monocytes 1.31 H Absolute Eosinophils 0.00 Absolute Basophils 0.02 D-Dimer Sodium Potassium Chloride Carbon Dioxide Anion Gap BUN Creatinine Estimated GFR/1.73 m2 Glucose Calcium Total Bilirubin AST ALT Alkaline Phosphatase C-Reactive Protein Total Protein Albumin
--- NOTE | 2021-06-02 16:28 | PGE_ITS ---
Date of Service Date of service: 06/02/21 Time of Service: 16:28 Assessment and Plan Assessment and plan (1) Pneumonia due to COVID-19 virus: Status: Acute Assessment and plan: Continue decadron, Remdesivir, atorvastatin, anticoagulation; follow daily inflammatory markers (CRP, dimer), CBC, CMP; telemetry monitoring and continuous pulse oximetry. Encourage patient to practic e prone technique (or at least be up out of bed as much as possible and when in bed rotate from side to side rather than lying on her back). Patient refused CPAP. She preferred the oxygen mask (2) Hypokalemia: Status: Acute Assessment and plan: dc HCTZ and give oral replacments, monitor levels which appear repleted as of today (3) Hyponatremia: Status: Acute Assessment and plan: probably d/t her use of HCTZ and possible SIADH from her COVID pneumonia. I have dc'ed her iv fluids (to be avoided in COVID 19 unless clinically dehydrated which she is not. (4) Essential hypertension: Status: Chronic Assessment and plan: continue amlodipine. hold HCTZ for now. If her BP becomes significantly elevated then could put her on low dose TERRI I or ARB. Subjective Subjective Interval history since last seen: Patient states she is feeling markedly better. Dyspnea is improving. Her hypoxemia is improving. She has been weaned down from 9 L/min oxygen facemask down to 5 L/min. She has had no sputum production no fever. She is actually been able to do some prone procedures. This morning I added baricitinib to her regimen of Decadron and Remdesivir because she was on 9 L/min. Exam Narrative Exam Narrative: Elderly female sitting up in a chair able to talk in complete sentences without dyspnea. No audible wheezing. Lungs with diffuse fine dry rales primarily at the bases but also heard in the mid lung vargas. No rhonchi no wheezes Heart regular rate and rhythm without murmur rub or gallop Abdomen soft and nontender nondistended Extremities without peripheral edema Objective Last Vital Signs Temp 36.8 C 06/02/21 12:05 Pulse 72 06/02/21 12:05 Resp 18 06/02/21 12:05 BP 133/55 L 06/02/21 12:05 Pulse Ox 88 L 06/02/21 12:05 Laboratory Results - last 24 hr 06/02/21 06/02/2106/02/21 06:57 06:57 06:57 WBC RBC Hgb Hct MCV MCH MCHC RDW Plt Count MPV Immature Gran % Neutrophils % Lymphocytes % Monocytes % Eosinophils % Basophils % Nucleated RBC % Absolute Neutrophils Absolute Lymphocytes Absolute Monocytes Absolute Eosinophils Absolute Basophils D-Dimer 560 H Sodium 127 L Potassium 4.3 Chloride 98 Carbon Dioxide 22.0 Anion Gap 7.0 BUN 18 D Creatinine 0.6 Estimated GFR/1.73 m2 >= 60.00 Glucose 128 H Calcium 8.0 L Total Bilirubin 0.4 AST 126 H ALT 169 H Alkaline Phosphatase 105 C-Reactive Protein 0.64 H Total Protein 5.7 L Albumin 2.6 L 06/02/21 06:57 WBC 11.81 H D RBC 4.18 Hgb 11.9 Hct 34.7 L MCV 83.0 MCH 28.5 MCHC 34.3 RDW 13.3 Plt Count 403 H MPV 10.1 Immature Gran % 1.2 Neutrophils % 60.7 Lymphocytes % 26.8 Monocytes % 11.1 Eosinophils % 0.0 Basophils % 0.2 Nucleated RBC % 0 Absolute Neutrophils 7.17 H Absolute Lymphocytes 3.17 Absolute Monocytes 1.31 H Absolute Eosinophils 0.00 Absolute Basophils 0.02 D-Dimer Sodium Potassium Chloride Carbon Dioxide Anion Gap BUN Creatinine Estimated GFR/1.73 m2 Glucose Calcium Total Bilirubin AST ALT Alkaline Phosphatase C-Reactive Protein Total Protein Albumin
[2021-06-02] MEDS: rOPINIRole 0.5 MG TAB 1.5 MG PO (18:55)
--- NOTE | 2021-06-02 19:14 | RESPIRATORY ---
Pt refuses cpap, says that she doesn't need it and doesn't want to use it. RT made her aware that the MD wants her on cpap for noc use, and pt still refuses. Cpap outside of room if pt changes her mind.
[2021-06-02] MEDS: Normal Saline Flush 10 ML SYR IVP (21:21)
[2021-06-02] MEDS: Atorvastatin 40 MG TAB PO (21:21)
[2021-06-02] MEDS: Normal Saline 500 ML 30 ML IV (21:22)
[2021-06-03] VITALS (18 sets, daily range): BP systolic 129–149; BP diastolic 46–64; PULSE 59–90; RESP 18–26; TEMP 31–37.2; O2SAT 89–98
[2021-06-03 07:56] LABS: Abs Immature Grans 0.21 10^3/uL (0.0-0.06); Absolute Basophil Count 0.01 10^3/uL (0.0-0.2); Basophils % 0.1; HCT 34.2 % (36.0-46.0); HGB 11.6 g/dL (11.2-15.7); Immature Grans % 1.6; Lymphocytes % 28.5; MCH 27.9 pg (27.0-33.0); MCHC 33.9 % (32.0-36.0); MCV 82.2 fL (80-95); MPV 10.4 fL (8.0-11.0); Monocytes % 10.3; Neutrophils % 59.5; Nucleated RBC 0 %; Platelet Count 464 10^3/uL (130-400); RBC 4.16 10^6/uL (3.93-5.22); RDW 13.3 % (11.7-14.6); RDW-SD 40.7 fL; WBC 13.35 10^3/uL (4.4-10.8)
[2021-06-03 08:00] LABS: Absolute Monocyte Count 1.38 10^3/uL (0.1-0.8); Absolute Neutrophil Count 7.94 10^3/uL (1.2-6.7)
[2021-06-03] MEDS: Aspirin E.C. 81 MG TABEC PO (08:10)
[2021-06-03] MEDS: amLODIPine 5 MG TAB PO (08:10)
[2021-06-03] MEDS: Multivitamin TAB 1 TAB PO (08:10)
[2021-06-03] MEDS: Dexamethasone 4 MG TAB 6 MG PO (08:10)
[2021-06-03] MEDS: Magnesium Oxide 400 MG TAB PO (08:10)
[2021-06-03 08:21] LABS: ALT 158 U/L (14-59); AST 97 U/L (15-37); Albumin 2.6 g/dL (3.4-5.0); Alkaline Phosphatase 98 U/L (46-116); Anion Gap 8.6 mmol/L (3-11); BUN 20 mg/dL (7-18); Bilirubin, Total 0.5 mg/dL (0.2-1.0); CO2 22.4 mmol/L (21.0-32.0); CREATININE 0.6 mg/dL (0.55-1.02); Calcium 7.7 mg/dL (8.5-10.1); Chloride 98 mmol/L (98-107); Glucose 106 mg/dL (74-106); Potassium 4.4 mmol/L (3.5-5.1); Sodium 129 mmol/L (136-145); Total Protein 5.5 g/dL (6.4-8.2)
[2021-06-03 08:46] LABS: D-Dimer 396 ng/mlFEU (<500)
[2021-06-03] MEDS: Enoxaparin 80 MG/0.8 ML SYR 70 MG SC ×2 (12:06→22:21)
--- NOTE | 2021-06-03 15:38 | W.PM.PROGNOT ---
Date of Service Date of service: 06/03/21 Time of Service: 15:38 Assessment and Plan Assessment and plan (1) Pneumonia due to COVID-19 virus: Status: Acute Assessment and plan: Continue baricitinib,decadron, Remdesivir, atorvastatin, anticoagulation; follow daily inflammatory markers (CRP, dimer), CBC, CMP; telemetry monitoring and continuous pulse oximetry. Encourage patient to practice prone technique (or at least be up out of bed as much as possible and when in bed rotate from side to side rather than lying on her back). Patient refused CPAP; tried with RT by her bedside today and tolerated for only 5 mins. She tells me I just can't do it, sorry. Tolerating High flow oxygen system. (2) Hypokalemia: Status: Acute Assessment and plan: dc HCTZ and give oral replacments, monitor levels which appear repleted as of today (3) Hyponatremia: Status: Acute Assessment and plan: probably d/t her use of HCTZ and possible SIADH from her COVID pneumonia. I have dc'ed her iv fluids (to be avoided in COVID 19 unless clinically dehydrated which she is not. (4) Essential hypertension: Status: Chronic Assessment and plan: continue amlodipine. hold HCTZ for now. If her BP becomes significantly elevated then could put her on low dose TERRI I or ARB. Subjective Subjective Patient reports: no new complaints, tolerating a regular diet, bowel movement and afebrile; denies nausea and vomiting Exam Narrative Exam Narrative: Sitting in chair with high flow O2 in place. Const General: cooperative and no acute distress Nutritional Appearance: overweight Orientation: alert and oriented x3 HENAR Head: normocephalic and atraumatic Neck Neck: no JVD Resp Effort & Inspection: normal respiratory effort Auscultation: rales bilaterally at the base Cardio Rate: regular rate Rhythm: regular rhythm Heart Sounds: S1 normal and S2 normal GI Palpation: soft and nontender Auscultation: normal bowel sounds Neuro General: no focal motor deficits Cognition: normal cognition Extrem General: no clubbing, cyanosis or edema and no calf tenderness Objective Last Vital Signs Temp 37.2 C 06/03/21 08:08 Pulse 71 06/03/21 08:08 Resp 20 06/03/21 08:08 BP 136/46 L 06/03/21 08:08 Pulse Ox 92 06/03/21 13:20 Laboratory Results - last 24 hr 06/03/21 06/03/21 06/03/21 07:15 07:15 07:15 WBC 13.35 H RBC 4.16 Hgb 11.6 Hct 34.2 L MCV 82.2 MCH 27.9 MCHC 33.9 RDW 13.3 Plt Count 464 H MPV 10.4 Immature Gran % 1.6 Neutrophils % 59.5 Lymphocytes % 28.5 Monocytes % 10.3 Eosinophils % 0.0 Basophils % 0.1 Nucleated RBC % 0 Absolute Neutrophils 7.94 H Absolute Lymphocytes 3.80 H Absolute Monocytes 1.38 H Absolute Eosinophils 0.00 Absolute Basophils 0.01 D-Dimer 396 Sodium 129 L Potassium 4.4 Chloride 98 Carbon Dioxide 22.4 Anion Gap 8.6 BUN 20 H Creatinine 0.6 Estimated GFR/1.73 m2 >= 60.00 Glucose 106 Calcium 7.7 L Total Bilirubin 0.5 AST 97 H ALT 158 H Alkaline Phosphatase 98 Total Protein 5.5 L Albumin 2.6 L
[2021-06-03] MEDS: rOPINIRole 0.5 MG TAB 1.5 MG PO (20:21)
[2021-06-03] MEDS: Atorvastatin 40 MG TAB PO (20:22)
[2021-06-03] MEDS: Normal Saline Flush 10 ML SYR IVP (22:19)
[2021-06-03] MEDS: Normal Saline 500 ML 30 ML IV (22:20)
[2021-06-04] VITALS (16 sets, daily range): BP systolic 134–159; BP diastolic 46–75; PULSE 57–82; RESP 18–28; TEMP 31–37.2; O2SAT 84–98
[2021-06-04 07:08] LABS: Abs Immature Grans 0.33 10^3/uL (0.0-0.06); Absolute Basophil Count 0.02 10^3/uL (0.0-0.2); Absolute Neutrophil Count 10.36 10^3/uL (1.2-6.7); Basophils % 0.1; HCT 35.4 % (36.0-46.0); Lymphocytes % 26.7; MCH 28.5 pg (27.0-33.0); MCHC 33.9 % (32.0-36.0); MCV 84.1 fL (80-95); MPV 9.9 fL (8.0-11.0); Monocytes % 9.7; Neutrophils % 61.5; Nucleated RBC 0 %; Platelet Count 516 10^3/uL (130-400); RBC 4.21 10^6/uL (3.93-5.22); RDW 13.4 % (11.7-14.6); WBC 16.85 10^3/uL (4.4-10.8)
[2021-06-04 07:14] LABS: Absolute Monocyte Count 1.63 10^3/uL (0.1-0.8)
[2021-06-04 07:27] LABS: ALT 171 U/L (14-59); AST 84 U/L (15-37); Albumin 2.9 g/dL (3.4-5.0); Alkaline Phosphatase 104 U/L (46-116); Anion Gap 9.9 mmol/L (3-11); BUN 21 mg/dL (7-18); Bilirubin, Total 0.5 mg/dL (0.2-1.0); CO2 21.1 mmol/L (21.0-32.0); CREATININE 0.7 mg/dL (0.55-1.02); Calcium 7.8 mg/dL (8.5-10.1); Chloride 98 mmol/L (98-107); Glucose 102 mg/dL (74-106); Potassium 4.8 mmol/L (3.5-5.1); Sodium 129 mmol/L (136-145); Total Protein 5.6 g/dL (6.4-8.2)
--- NOTE | 2021-06-04 07:34 | RESPIRATORY ---
Pt trialed on cpap with rt at bedside. Settings of cpap 5, 50% and Spo2 went to 98 immediately but pt was only able to wear for about 5 minutes. (says she feels like she can't breath and doesn't like the mask.) Pt is unwilling to try wearing for night time use.
[2021-06-04 07:35] LABS: Diff Comment Diff Reviewed; RBC Morphology Normal
[2021-06-04 07:46] LABS: D-Dimer 337 ng/mlFEU (<500)
[2021-06-04] MEDS: Enoxaparin 80 MG/0.8 ML SYR 70 MG SC ×2 (08:11→19:43)
[2021-06-04] MEDS: Multivitamin TAB 1 TAB PO (08:12)
[2021-06-04] MEDS: Dexamethasone 4 MG TAB 6 MG PO (08:12)
[2021-06-04] MEDS: Aspirin E.C. 81 MG TABEC PO (08:12)
[2021-06-04] MEDS: Magnesium Oxide 400 MG TAB PO (08:12)
[2021-06-04] MEDS: amLODIPine 5 MG TAB PO (08:12)
[2021-06-04 08:43] LABS: Procalcitonin < 0.1 ng/mL
--- NOTE | 2021-06-04 16:32 | W.PM.PROGNOT ---
Date of Service Date of service: 06/04/21 Time of Service: 16:33 Assessment and Plan Assessment and plan (1) Pneumonia due to COVID-19 virus: Status: Acute Assessment and plan: Continue baricitinib,decadron, Remdesivir, atorvastatin, anticoagulation; follow daily inflammatory markers (CRP, dimer), CBC, CMP; telemetry monitoring and continuous pulse oximetry. Patient refused CPAP; tried with RT by her bedside today and tolerated for only 5 mins. She tells me I just can't do it, sorry. Tolerating High flow oxygen system. (2) Hypokalemia: Status: Acute Assessment and plan: dc HCTZ and give oral replacments, monitor levels which appear repleted as of today (3) Hyponatremia: Status: Acute Assessment and plan: probably d/t her use of HCTZ and possible SIADH from her COVID pneumonia. I have dc'ed her iv fluids (to be avoided in COVID 19 unless clinically dehydrated which she is not. (4) Essential hypertension: Status: Chronic Assessment and plan: continue amlodipine. hold HCTZ for now. If her BP becomes significantly elevated then could put her on low dose TERRI I or ARB. Subjective Subjective Patient reports: feels better, tolerating a regular diet and afebrile; denies nausea and vomiting Exam Narrative Exam Narrative: Sitting in chair with high flow O2 in place. Const General: cooperative and no acute distress Nutritional Appearance: overweight Orientation: alert and oriented x3 HENMT Head: normocephalic and atraumatic Neck Neck: no JVD Resp Effort & Inspection: normal respiratory effort Auscultation: rales bilaterally at the base Cardio Rate: regular rate Rhythm: regular rhythm Heart Sounds: S1 normal and S2 normal GI Palpation: soft and nontender Auscultation: normal bowel sounds Neuro General: no focal motor deficits Cognition: normal cognition Extrem General: no clubbing, cyanosis or edema and no calf tenderness Objective Last Vital Signs Temp 36.2 C L 06/04/21 15:44 Pulse 82 06/04/21 15:44 Resp 24 06/04/21 15:44 BP 142/75 H 06/04/21 15:44 Pulse Ox 93 06/04/21 15:44 Laboratory Results - last 24 hr 06/04/21 06/04/21 06/04/21 06:37 06:37 06:37 WBC 16.85 H RBC 4.21 Hgb 12.0 Hct 35.4 L MCV 84.1 MCH 28.5 MCHC 33.9 RDW 13.4 Plt Count 516 H MPV 9.9 Immature Gran % 2.0 Neutrophils % 61.5 Lymphocytes % 26.7 Monocytes % 9.7 Eosinophils % 0.0 Basophils % 0.1 Nucleated RBC % 0 Absolute Neutrophils 10.36 H Absolute Lymphocytes 4.50 H Absolute Monocytes 1.63 H Absolute Eosinophils 0.00 Absolute Basophils 0.02 RBC Morphology Normal D-Dimer Sodium 129 L Potassium 4.8 Chloride 98 Carbon Dioxide 21.1 Anion Gap 9.9 BUN 21 H Creatinine 0.7 Estimated GFR/1.73 m2 >= 60.00 Glucose 102 Calcium 7.8 L Total Bilirubin 0.5 AST 84 H ALT 171 H Alkaline Phosphatase 104 Total Protein 5.6 L Albumin 2.9 L Procalcitonin < 0.1 06/04/21 06:37 WBC RBC Hgb Hct MCV MCH MCHC RDW Plt Count MPV Immature Gran % Neutrophils % Lymphocytes % Monocytes % Eosinophils % Basophils % Nucleated RBC % Absolute Neutrophils Absolute Lymphocytes Absolute Monocytes Absolute Eosinophils Absolute Basophils RBC Morphology D-Dimer 337 Sodium Potassium Chloride Carbon Dioxide Anion Gap BUN Creatinine Estimated GFR/1.73 m2 Glucose Calcium Total Bilirubin AST ALT Alkaline Phosphatase Total Protein Albumin Procalcitonin
[2021-06-04] MEDS: rOPINIRole 0.5 MG TAB 1.5 MG PO (18:07)
[2021-06-04] MEDS: Atorvastatin 40 MG TAB PO (19:43)
[2021-06-04] MEDS: Acetaminophen 325 MG TAB 650 MG PO (19:43)
[2021-06-05] VITALS (7 sets, daily range): BP systolic 141–179; BP diastolic 58–67; PULSE 61–103; RESP 20–24; TEMP 36.3–36.7; O2SAT 89–99
--- NOTE | 2021-06-05 01:07 | NUR.NOTE ---
Nursing Note:pt very anxious and feels restless. states she does not sleep much at night and is a early riser. pt up to chair with assistance of lines and cords. states feeling better after sitting up for about 109 minutes
[2021-06-05] MEDS: Acetaminophen 325 MG TAB 650 MG PO ×4 (05:18→20:01)
[2021-06-05] MEDS: Enoxaparin 80 MG/0.8 ML SYR 70 MG SC (07:21)
[2021-06-05] MEDS: Magnesium Oxide 400 MG TAB PO (07:22)
[2021-06-05] MEDS: Aspirin E.C. 81 MG TABEC PO (07:22)
[2021-06-05] MEDS: Dexamethasone 4 MG TAB 6 MG PO (07:22)
[2021-06-05] MEDS: Multivitamin TAB 1 TAB PO (07:23)
[2021-06-05] MEDS: amLODIPine 5 MG TAB PO (07:23)
[2021-06-05 07:27] LABS: Abs Immature Grans 0.47 10^3/uL (0.0-0.06); Absolute Lymphocyte Count 5.05 10^3/uL (1.2-3.4); Basophils % 0.2; HCT 36.6 % (36.0-46.0); HGB 12.5 g/dL (11.2-15.7); Lymphocytes % 21.1; MCH 28.5 pg (27.0-33.0); MCHC 34.2 % (32.0-36.0); MCV 83.4 fL (80-95); MPV 9.7 fL (8.0-11.0); Monocytes % 8.8; Neutrophils % 67.9; Nucleated RBC 0 %; Platelet Count 591 10^3/uL (130-400); RBC 4.39 10^6/uL (3.93-5.22); RDW 13.2 % (11.7-14.6); RDW-SD 40.7 fL; WBC 23.91 10^3/uL (4.4-10.8)
[2021-06-05 07:30] LABS: Absolute Basophil Count 0.05 10^3/uL (0.0-0.2); Absolute Neutrophil Count 16.23 10^3/uL (1.2-6.7)
[2021-06-05 07:39] LABS: ALT 178 U/L (14-59); AST 70 U/L (15-37); Albumin 3.1 g/dL (3.4-5.0); Alkaline Phosphatase 102 U/L (46-116); BUN 22 mg/dL (7-18); Bilirubin, Total 0.6 mg/dL (0.2-1.0); CREATININE 0.7 mg/dL (0.55-1.02); Chloride 98 mmol/L (98-107); Glucose 102 mg/dL (74-106); Potassium 4.6 mmol/L (3.5-5.1); Sodium 128 mmol/L (136-145); Total Protein 6.2 g/dL (6.4-8.2)
[2021-06-05 07:40] LABS: C-Reactive Protein < 0.05 mg/dL (0.0-0.3)
[2021-06-05 07:51] LABS: Diff Comment Diff Reviewed; RBC Morphology Normal
[2021-06-05 08:09] LABS: D-Dimer 292 ng/mlFEU (<500)
--- NOTE | 2021-06-05 09:02 | PUCON_ITS ---
General Date Of Service Date of service: 06/05/21 Time of Service: 08:15 Requesting physician: Mathew Nobles Reason for Consult: Covid pneumonia Assessment and Plan Assessment and plan (1) Pneumonia due to COVID-19 virus: Status: Acute (2) Respiratory failure with hypoxia: Status: Acute Assessment and plan: This is an 81-year-old woman who is unvaccinated found to have Covid pneumonia. She appears to be doing well however does requ yonny high flow nasal cannula to maintain saturations over 90%. She is making improvements and is in the process of being weaned from an FiO2 and flow standpoint on the high flow. She has not been doing incentive spirometry or Vibra Pap over the weekend as neither 2 will or in her room. I spoke to r espiratory therapy today in order to have these placed in her room for her. He does have some peripheral edema and seems to have been having a negative fluid balance a cumulative fluid balance of -1400 cc. COVID-19 PNA with hypoxic respiratory failure - recommend HFNC if needed to maintain saturations >90%, continue to wean this - agree with Decadron, remdesivir and barcitinib course - would recommend against full therapeutic A/C unless there is evidence of clot, she has no PE, but if concerned can obtain 4 extremity Duplex to rule this out. The risks associated with full A/C outweigh the benefits in patients without PE/DVT, particularly in the eldery. - ambulation and proning as tolerated - recommend incentive spirometry and VibraPEP- discussed with RT today - recommend negative fluid balance daily (negative 500cc-1L) Qualifiers: Chronicity: acute Qualified Code(s): J96.01 - Acute respiratory failure with hypoxia History of Present Illness Narrative: This is an 81-year-old unvaccinated female who was diagnosed with Covid pneumonia 05/28/2021. He was discharged from the ED at [facility] on 05/28/21 with an O2 saturation monitor to keep track of her O2 sats. She returned to the ED when she realized that her O2 saturations were reading in the 80s. Labs revealed slight elevations in her LFTs as well as her CRP and dimer however compared to yesterday these have been improving. Her chest CT shows scattered bilateral groundglass opacities superiorly however towards the bases she has evidence of more of an organizing pneumonia process occurring with more densely consolidated areas of lung tissue. No pulmonary emboli. She did quite well over the weekend however was started on high flow nasal cannula. She tried CPAP however was unable to tolerate this. Her inflammatory markers have completely normalized and she continues to improve every day. This morning she is on 50/50 on high flow nasal cannula saturating in the low 90s and will likely be able to be weaned for today. She tells me she feels as though she is doing much better and feels like she might be able to go home this week. She has a good appetite and her bowel and bladder movements are normal. She does still have a bit of a cough. 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 Asthma Father Personal history of malignant neoplasm SMALL BOWEL Sister Personal history of malignant neoplasm BREAST Brother Personal history of malignant neoplasm Sister No problems noted. Sister Personal history of malignant neoplasm Brother No problems noted. Son No problems noted. Son No problems noted. Son No problems noted. Daughter No problems noted. Daughter No problems noted. Social History Smoking/Tobacco Use Status: Never Smoking risk assessment performed?: Yes Alcohol Intake: never Drug use: Never Substance use type: does not use Household members: other Details: 2 Pets and animals: No What type of physical activity do you participate in: none Luba/Jainism: OTHER Do you feel safe at home: Yes Do you feel safe in your relationship?: Yes Female Reproductive History Menstrual Menopause type: natural History History 6 Para 5 Hx # Term Pregnancies 5 Multiple births Hx # Pregnancies Ectopic pregnancies AB induced Hx Number of Living Children 5 AB spontaneous Visit Medication and Allergies Active Medications Generic Name Dose Route Start Last Admin Trade Name Freq PRN Reason Stop Dose Admin Acetaminophen 650 mg 05/31/21 21:50 06/05/21 05:18 Acetaminophen 325 Mg Tab PO 650 mg Q4H PRN PRN Administration Amlodipine Besylate 5 mg 06/01/21 08:30 06/05/21 07:23 Amlodipine 5 Mg Tab PO 5 mg DAILY HONEY Administration Aspirin 81 mg 06/01/21 08:30 06/05/21 07:22 Aspirin E.C. 81 Mg Tabec PO 81 mg DAILY HONEY Administration Atorvastatin Calcium 40 mg 06/01/21 20:00 06/04/21 19:43 Atorvastatin 40 Mg Tab PO 40 mg QPM HONEY Administration Baricitinib 4 mg 06/02/21 08:30 06/05/21 07:22 Baricitinib 1 Mg Tab PO 06/16/21 08:29 4 mg DAILY HONEY Administration Dexamethasone 6 mg 06/01/21 08:30 06/05/21 07:22 Dexamethasone 4 Mg Tab PO 6 mg DAILY HONEY Administration Dimethicone/Zinc Oxide 0 gm 05/31/21 21:50 [place] Protect Cream 142 Gm Tube TP PRN PRN Enoxaparin Sodium 40 mg 06/05/21 08:30 Enoxaparin 40 Mg/0.4 Ml Syr SC DAILY [facility] Sodium Chloride 500 mls @ 0 mls/hr 05/31/21 21:37 06/04/21 00:25 Saline 500ml Bag IV 0 mls/hr PRN PRN Infusion As Directed IV Miscellaneous Supplies 1 each 05/31/21 21:45 Iv Access IV DIRECTED [facility] Magnesium Hydroxide 30 ml 05/31/21 21:50 Milk Of Magnesia 30 Ml Cup PO DAILY PRN PRN Magnesium Oxide 400 mg 06/01/21 08:30 06/05/21 07:22 Magnesium Oxide 400 Mg Tab PO 400 mg DAILY HONEY Administration Multivitamins 1 tab 06/01/21 08:30 06/05/21 07:23 Multivitamin Tab PO 1 tab DAILY HONEY Administration Polyethylene Glycol 17 gm 05/31/21 21:50 Polyethylene Glycol 3350 17 Gm Packet PO DAILY PRN PRN Constipation Ropinirole HCl 1.5 mg 05/31/21 22:00 06/04/21 21:28 Ropinirole 0.5 Mg Tab PO Not Given HS HONEY Sodium Chloride 0 ml 05/31/21 21:37 06/03/21 22:19 Normal Saline Flush 10 Ml Syr IVP 20 ml PRN PRN Administration Allergies No Known Allergies Allergy (Unverified 05/31/21 20:14) Exam Const General: no acute distress Nutritional Appearance: well nourished [facility] Head: normocephalic Ears: external ears normal General nose exam: nasal mucous membranes and turbinates normal Face and sinus: sinuses nontender Mouth: oropharynx normal and moist mucous membranes Teeth and gingiva: dentition normal Eyes General: appearance normal, both eyes and all related structures Pupils: PERRL Neck Neck: normal visual inspection and no lymphadenopathy Chest Chest: normal inspection of the chest Resp Effort & Inspection: normal respiratory effort Auscultation: diminished lung sounds, no rales, no rhonchi and no wheezes Cardio Rate: regular rate Rhythm: regular rhythm Heart Sounds: S1 normal, S2 normal and no murmurs Pulses: radial pulses present bilaterally GI Inspection: normal to inspection Palpation: soft Skin General skin exam: no rashes or lesions noted Neuro General: patient alert, patient awake and patient oriented x3 Extrem General: no clubbing, no cyanosis and edema Laterality: bilateral Psych Mental Status: mental status grossly normal Affect: normal affect Attitude: cooperative Results Last Vital Signs Temp 36.3 C L 06/05/21 07:26 Pulse 74 06/05/21 08:54 Resp 22 06/05/21 07:26 BP 148/63 H 06/05/21 07:26 Pulse Ox 94 06/05/21 07:26 Labs Result diagrams: 06/05/21 07:00 06/05/21 07:00 Labs: Laboratory Results - last 24 hr 06/05/21 06/05/21 06/05/21 07:00 07:00 07:00 WBC 23.91 H D RBC 4.39 Hgb 12.5 Hct 36.6 MCV 83.4 MCH 28.5 MCHC 34.2 RDW 13.2 Plt Count 591 H MPV 9.7 Immature Gran % 2.0 Neutrophils % 67.9 Lymphocytes % 21.1 Monocytes % 8.8 Eosinophils % 0.0 Basophils % 0.2 Nucleated RBC % 0 Absolute Neutrophils 16.23 H Absolute Lymphocytes 5.05 H Absolute Monocytes 2.10 H Absolute Eosinophils 0.00 Absolute Basophils 0.05 RBC Morphology Normal D-Dimer 292 Sodium 128 L Potassium 4.6 Chloride 98 Carbon Dioxide 21.0 Anion Gap 9.0 BUN 22 H Creatinine 0.7 Estimated GFR/1.73 m2 >= 60.00 Glucose 102 Calcium 8.0 L Total Bilirubin 0.6 AST 70 H ALT 178 H Alkaline Phosphatase 102 C-Reactive Protein < 0.05 Total Protein 6.2 L Albumin 3.1 L
--- NOTE | 2021-06-05 09:57 | PDOC.CMPRO ---
- If Service Date Differs Date of service: 06/05/21 Time of Service: 09:57 Care Management Progress Note S/O: CM was unable to meet with Millicent in person due to her covid-19 diagnosis but spoke with her over the phone. Millicent reports that she is feeling much better and denies sob. She shares that she feels bored and lonely. She has been able to ambulate around her room talk to her family on the phone, color and watch TV. CM continues to support. A: 81 year old female admitted to [facility] on 05/31/21 for Hypoxia, covid-19 P: Anticipate Millicent will return home with no new services when medically cleared by . Millicent will follow up with her PCP and plan of care as prescribed. SAMANTHA continues to follow.
[2021-06-05] MEDS: ALPRAZolam 0.5 MG TAB 0.25 MG PO (13:25)
--- NOTE | 2021-06-05 15:14 | W.PM.PROGNOT ---
Date of Service Date of service: 06/05/21 Time of Service: 15:15 Assessment and Plan Assessment and plan (1) Pneumonia due to COVID-19 virus: Status: Acute Assessment and plan: Continue baricitinib,decadron, atorvastatin, anticoagulation. Remdesivir course completed. CRP and d dimer normalized. Now off high flow NC and on 5L O2 per regular NC. (2) Hypokalemia: Status: Acute Assessment and plan: Normalized. (3) Hyponatremia: Status: Acute Assessment and plan: Na now 128 Monitor. (4) Essential hypertension: Status: Chronic Assessment and plan: continue amlodipine. and restart HCTZ.. Subjective Subjective Patient reports: tolerating a regular diet and afebrile; denies nausea and vomiting Interval history since last seen: Very anxious currently. C/O back pain; points to lower left scapular area. Exam Narrative Exam Narrative: Standing/pacing. Const General: cooperative and no acute distress Nutritional Appearance: overweight Orientation: alert and oriented x3 HENMT Head: normocephalic and atraumatic Neck Neck: no JVD Resp Effort & Inspection: normal respiratory effort Auscultation: rales bilaterally at the base Cardio Rate: regular rate Rhythm: regular rhythm Heart Sounds: S1 normal and S2 normal GI Palpation: soft and nontender Auscultation: normal bowel sounds Back/Spine/Pelvis Back: other (tenderness in subscapular area on right) Neuro General: no focal motor deficits Cognition: normal cognition Extrem General: no clubbing, cyanosis or edema and no calf tenderness Objective Last Vital Signs Temp 36.3 C L 06/05/21 07:26 Pulse 74 06/05/21 08:54 Resp 22 06/05/21 07:26 BP 148/63 H 06/05/21 07:26 Pulse Ox 94 06/05/21 07:26 Laboratory Results - last 24 hr 06/05/21 06/05/21 06/05/21 07:00 07:00 07:00 WBC 23.91 H D RBC 4.39 Hgb 12.5 Hct 36.6 MCV 83.4 MCH 28.5 MCHC 34.2 RDW 13.2 Plt Count 591 H MPV 9.7 Immature Gran % 2.0 Neutrophils % 67.9 Lymphocytes % 21.1 Monocytes % 8.8 Eosinophils % 0.0 Basophils % 0.2 Nucleated RBC % 0 Absolute Neutrophils 16.23 H Absolute Lymphocytes 5.05 H Absolute Monocytes 2.10 H Absolute Eosinophils 0.00 Absolute Basophils 0.05 RBC Morphology Normal D-Dimer 292 Sodium 128 L Potassium 4.6 Chloride 98 Carbon Dioxide 21.0 Anion Gap 9.0 BUN 22 H Creatinine 0.7 Estimated GFR/1.73 m2 >= 60.00 Glucose 102 Calcium 8.0 L Total Bilirubin 0.6 AST 70 H ALT 178 H Alkaline Phosphatase 102 C-Reactive Protein < 0.05 Total Protein 6.2 L Albumin 3.1 L
[2021-06-05] MEDS: hydroCHLOROthiazide 12.5 MG TAB PO (17:13)
[2021-06-05] MEDS: Baclofen 10 MG TAB PO (17:14)
[2021-06-05] MEDS: Atorvastatin 40 MG TAB PO (20:03)
[2021-06-05] MEDS: Normal Saline Flush 10 ML SYR IVP (20:04)
[2021-06-05] MEDS: rOPINIRole 0.5 MG TAB 1.5 MG PO (20:13)
[2021-06-06] VITALS (8 sets, daily range): BP systolic 134–148; BP diastolic 56–70; PULSE 71–103; RESP 16–20; TEMP 36.2–37.4; O2SAT 90–93
[2021-06-06] MEDS: Enoxaparin 40 MG/0.4 ML SYR SC (07:26)
[2021-06-06] MEDS: Normal Saline Flush 10 ML SYR IVP (07:26)
[2021-06-06] MEDS: Aspirin E.C. 81 MG TABEC PO (07:26)
[2021-06-06] MEDS: hydroCHLOROthiazide 12.5 MG TAB PO (07:26)
[2021-06-06] MEDS: Acetaminophen 325 MG TAB 650 MG PO ×3 (07:26→21:08)
[2021-06-06] MEDS: Multivitamin TAB 1 TAB PO (07:27)
[2021-06-06] MEDS: Dexamethasone 4 MG TAB 6 MG PO (07:27)
[2021-06-06] MEDS: amLODIPine 5 MG TAB PO (07:27)
[2021-06-06] MEDS: Magnesium Oxide 400 MG TAB PO (07:27)
[2021-06-06 07:37] LABS: HCT 36.6 % (36.0-46.0); HGB 12.5 g/dL (11.2-15.7); MCH 28.3 pg (27.0-33.0); MCHC 34.2 % (32.0-36.0); MCV 82.8 fL (80-95); MPV 9.4 fL (8.0-11.0); Nucleated RBC 0 %; Platelet Count 518 10^3/uL (130-400); RBC 4.42 10^6/uL (3.93-5.22); RDW 13.2 % (11.7-14.6); RDW-SD 39.8 fL
[2021-06-06 07:48] LABS: ALT 150 U/L (14-59); AST 42 U/L (15-37); Albumin 3.1 g/dL (3.4-5.0); Alkaline Phosphatase 96 U/L (46-116); Anion Gap 8.5 mmol/L (3-11); BUN 18 mg/dL (7-18); Bilirubin, Total 0.7 mg/dL (0.2-1.0); CO2 21.5 mmol/L (21.0-32.0); CREATININE 0.7 mg/dL (0.55-1.02); Calcium 8.1 mg/dL (8.5-10.1); Chloride 98 mmol/L (98-107); Glucose 96 mg/dL (74-106); Potassium 4.2 mmol/L (3.5-5.1); Sodium 128 mmol/L (136-145); Total Protein 6.3 g/dL (6.4-8.2)
[2021-06-06 08:42] LABS: Absolute Lymphocyte Count 6.06 10^3/uL (1.2-3.4); Absolute Monocyte Count 1.26 10^3/uL (0.1-0.8); Absolute Neutrophil Count 17.93 10^3/uL (1.2-6.7); Bands % 0
--- NOTE | 2021-06-06 08:42 | PUCON_ITS ---
General Date Of Service Date of service: 06/06/21 Time of Service: 08:15 Requesting physician: Mathew Nobles Reason for Consult: Covid pneumonia Assessment and Plan Assessment and plan (1) Pneumonia due to COVID-19 virus: Status: Acute (2) Respiratory failure with hypoxia: Status: Acute Assessment and plan: This is an 81-year-old woman who is unvaccinated found to have Covid pneumonia. She seems to be slowly improving and is curren tly on 4 L nasal cannula and saturating appropriately. She is still slightly symptomatic and so would recommend continuing her precautions until she is asymptomatic. We continue to wean her oxygen she may be able to go home this week with an oxygen prescription to self taper at home. COVID-19 PNA with hypoxic respiratory failure - supplementall oxygen to maintain saturations over 90%. - agree with Decadron, remdesivir and barcitinib course - recommend incentive spirometry and VibraPEP - recommend negative fluid balance daily (negative 500cc-1L) - recommend staying on precautions while in the hospital until she is symptoms free Pulmonary medicine to sign off as patient is improving and will likely be able to be discharged this week. If there are any further questions or concerns please feel free to reach out. Qualifiers: Chronicity: acute Qualified Code(s): J96.01 - Acute respiratory failure with hypoxia History of Present Illness Narrative: This is an 81-year-old unvaccinated female who was diagnosed with Covid pneumonia 05/28/2021. He was discharged from the ED at [facility] on 05/28/21 with an O2 saturation monitor to keep track of her O2 sats. She returned to the ED when she realized that her O2 saturations were reading in the 80s. Labs revealed slight elevations in her LFTs as well as her CRP and dimer however compared to yesterday these have been improving. Her chest CT shows scattered bilateral groundglass opacities superiorly however towards the bases she has evidence of more of an organizing pneumonia process occurring with more densely consolidated areas of lung tissue. No pulmonary emboli. This morning she states she is doing quite well. She still does have some shortness of breath however this is improving and she still has a cough that is mainly dry however again she states this is slowly getting better. 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 Asthma Father Personal history of malignant neoplasm SMALL BOWEL Sister Personal history of malignant neoplasm BREAST Brother Personal history of malignant neoplasm Sister No problems noted. Sister Personal history of malignant neoplasm Brother No problems noted. Son No problems noted. Son No problems noted. Son No problems noted. Daughter No problems noted. Daughter No problems noted. Social History Smoking/Tobacco Use Status: Never Smoking risk assessment performed?: Yes Alcohol Intake: never Drug use: Never Substance use type: does not use Household members: other Details: 2 Pets and animals: No What type of physical activity do you participate in: none Luba/Nondenominational: OTHER Do you feel safe at home: Yes Do you feel safe in your relationship?: Yes Female Reproductive History Menstrual Menopause type: natural History History 6 Para 5 Hx # Term Pregnancies 5 Multiple births Hx # Pregnancies Ectopic pregnancies AB induced Hx Number of Living Children 5 AB spontaneous Visit Medication and Allergies Active Medications Generic Name Dose Route Start Last Admin Trade Name Freq PRN Reason Stop Dose Admin Acetaminophen 650 mg 06/05/21 15:15 06/06/21 07:26 Acetaminophen 325 Mg Tab PO 650 mg TID HONEY Administration Amlodipine Besylate 5 mg 06/01/21 08:30 06/06/21 07:27 Amlodipine 5 Mg Tab PO 5 mg DAILY HONEY Administration Aspirin 81 mg 06/01/21 08:30 06/06/21 07:26 Aspirin E.C. 81 Mg Tabec PO 81 mg DAILY HONEY Administration Atorvastatin Calcium 40 mg 06/01/21 20:00 06/05/21 20:03 Atorvastatin 40 Mg Tab PO 40 mg QPM HONEY Administration Baricitinib 4 mg 06/02/21 08:30 06/06/21 07:27 Baricitinib 1 Mg Tab PO 06/16/21 08:29 4 mg DAILY HONEY Administration Dexamethasone 6 mg 06/01/21 08:30 06/06/21 07:27 Dexamethasone 4 Mg Tab PO 6 mg DAILY HONEY Administration Dimethicone/Zinc Oxide 0 gm 05/31/21 21:50 [place] Protect Cream 142 Gm Tube TP PRN PRN Enoxaparin Sodium 40 mg 06/05/21 08:30 06/06/21 07:26 Enoxaparin 40 Mg/0.4 Ml Syr SC 40 mg DAILY HONEY Administration Hydrochlorothiazide 12.5 mg 06/05/21 15:25 06/06/21 07:26 Hydrochlorothiazide 12.5 Mg Tab PO 12.5 mg DAILY HONEY Administration Sodium Chloride 500 mls @ 0 mls/hr 05/31/21 21:37 06/04/21 00:25 Saline 500ml Bag IV 0 mls/hr PRN PRN Infusion As Directed IV Miscellaneous Supplies 1 each 05/31/21 21:45 Iv Access IV DIRECTED [facility] Magnesium Hydroxide 30 ml 05/31/21 21:50 Milk Of Magnesia 30 Ml Cup PO DAILY PRN PRN Magnesium Oxide 400 mg 06/01/21 08:30 06/06/21 07:27 Magnesium Oxide 400 Mg Tab PO 400 mg DAILY HONEY Administration Multivitamins 1 tab 06/01/21 08:30 06/06/21 07:27 Multivitamin Tab PO 1 tab DAILY HONEY Administration Polyethylene Glycol 17 gm 05/31/21 21:50 Polyethylene Glycol 3350 17 Gm Packet PO DAILY PRN PRN Constipation Ropinirole HCl 1.5 mg 05/31/21 22:00 06/05/21 20:13 Ropinirole 0.5 Mg Tab PO 1.5 mg HS HONEY Administration Sodium Chloride 0 ml 05/31/21 21:37 06/06/21 07:26 Normal Saline Flush 10 Ml Syr IVP 10 ml PRN PRN Administration Allergies No Known Allergies Allergy (Unverified 05/31/21 20:14) Exam Const General: no acute distress Nutritional Appearance: well nourished [facility] Head: normocephalic Ears: external ears normal General nose exam: nasal mucous membranes and turbinates normal Face and sinus: sinuses nontender Mouth: oropharynx normal and moist mucous membranes Teeth and gingiva: dentition normal Eyes General: appearance normal, both eyes and all related structures Pupils: PERRL Neck Neck: normal visual inspection and no lymphadenopathy Chest Chest: normal inspection of the chest Resp Effort & Inspection: normal respiratory effort Auscultation: diminished lung sounds, no rales, no rhonchi and no wheezes Cardio Rate: regular rate Rhythm: regular rhythm Heart Sounds: S1 normal, S2 normal and no murmurs Pulses: radial pulses present bilaterally GI Inspection: normal to inspection Palpation: soft Skin General skin exam: no rashes or lesions noted Neuro General: patient alert, patient awake and patient oriented x3 Extrem General: no clubbing, no cyanosis and edema Laterality: bilateral Psych Mental Status: mental status grossly normal Affect: normal affect Attitude: cooperative Results Last Vital Signs Temp 36.2 C L 06/06/21 07:41 Pulse 80 06/06/21 07:43 Resp 20 06/06/21 07:41 BP 146/62 H 06/06/21 07:41 Pulse Ox 92 06/06/21 07:41 Labs Result diagrams: 06/05/21 07:00 06/06/21 07:27 Labs: Laboratory Results - last 24 hr 06/06/21 07:27 Sodium 128 L Potassium 4.2 Chloride 98 Carbon Dioxide 21.5 Anion Gap 8.5 BUN 18 Creatinine 0.7 Estimated GFR/1.73 m2 >= 60.00 Glucose 96 Calcium 8.1 L Total Bilirubin 0.7 AST 42 H ALT 150 H Alkaline Phosphatase 96 Total Protein 6.3 L Albumin 3.1 L
[2021-06-06 08:43] LABS: Diff Comment Manual Differential; RBC Morphology Normal
[2021-06-06 08:44] LABS: WBC 25.26 10^3/uL (4.4-10.8)
--- NOTE | 2021-06-06 09:45 | RESPIRATORY ---
0830 Pt resting comfortably in chair. Pt states she feels good and slept very well. Currently on 4L NC with SpO2 88% at rest. Attempted to perform IS with pt, but she was unable to generate enough force measure any volume. Had pt perform VibraPEP with success and encouraged her to use hourly at minimum. Pt lungs clear/diminished at apex and significantly diminished with coarse and fine crackles in bases.
--- NOTE | 2021-06-06 11:17 | W.NUTRFU ---
Date of service: 06/06/21 Time of Service: 11:17 Nutritional Follow up NOTE: Assessment: 163 cm and 72.8 kg. BMI is 27.5 kg/m2 which is WNL for age. PO intake is fair on a regular diet. Estimated energy needs: 1500 kcal/day (REE x 1.3) Estimated protein needs: 73 g/day (1.0 g/kg/day) Estimated fluid needs: 2000 ml/day (30 ml/kg/day) Nutrition Diagnosis: Inadequate intake of calories and protein related to respiratory status/poor appetite Intervention: Will provide Ensure Plus twice daily to help increase kcal and protein intake. Monitoring and Evaluation: Will monitor PO, weight, tolerance to supplements. Will evaluate nutrition care plan ongoing and adjust as needed. Time Spent in Nutritional Counseling and Treatment: 0
--- NOTE | 2021-06-06 12:33 | CMPROGNOTE_ITS ---
- If Service Date Differs Date of service: 06/06/21 Time of Service: 12:33 Care Management Progress Note S/O: Millicent remains on precautions for Covid 19, therefore CM called and talked to her over the phone. Millicent reported that she is feeling great, and had a good night last night. She stated that she has been talking to her family on the phone- they are very supportive and she misses them terribly. She has activities in the room to keep her busy, and CM could hear the TV on in the background. CM discussed her discharge plan, asking if she would be agreeable to services. She doesn't feel that she will need any HH services, even if she has new oxygen at home. She reports that someone will be with her all the time. She is very anxious to return home, and states that she is hoping to be discharged soon. CM will continue to follow. A: Millicent is an 81 year old female admitted to [facility] on 05/31/21 for Hypoxia, covid-19 P: Anticipate Millicent will return home with no new services when medically cleared by . Millicent will follow up with her PCP and plan of care as prescribed. She will likely transport home via private vehicle by family. CM continues to follow.
[2021-06-06] MEDS: LORazepam 0.5 MG TAB PO ×2 (13:53→21:09)
--- NOTE | 2021-06-06 16:21 | W.PM.PROGNOT ---
Date of Service Date of service: 06/06/21 Time of Service: 16:21 Assessment and Plan Assessment and plan (1) Pneumonia due to COVID-19 virus: Status: Acute Assessment and plan: Continue baricitinib,decadron, atorvastatin, anticoagulation. Remdesivir course completed. CRP and d dimer normalized. Now off high flow NC and on 3L O2 per regular NC at rest. O2 desaturated to 84% after ambulating 5 ft. Exercise oxygen testing tomorrow with plan to dc. (2) Hypokalemia: Status: Acute Assessment and plan: Normalized. (3) Hyponatremia: Status: Acute Assessment and plan: Na now 128 Monitor. (4) Essential hypertension: Status: Chronic Assessment and plan: continue amlodipine. and restart HCTZ.. Subjective Subjective Patient reports: no new complaints, feels better, tolerating a regular diet and afebrile; denies nausea and vomiting Exam Narrative Exam Narrative: Standing/pacing. Const General: cooperative and no acute distress Nutritional Appearance: overweight Orientation: alert and oriented x3 HENMT Head: normocephalic and atraumatic Neck Neck: no JVD Resp Effort & Inspection: normal respiratory effort Auscultation: rales bilaterally at the base Cardio Rate: regular rate Rhythm: regular rhythm Heart Sounds: S1 normal and S2 normal GI Palpation: soft and nontender Auscultation: normal bowel sounds Back/Spine/Pelvis Back: other (tenderness in subscapular area on right) Neuro General: no focal motor deficits Cognition: normal cognition Extrem General: no clubbing, cyanosis or edema and no calf tenderness Objective Last Vital Signs Temp 36.2 C L 06/06/21 07:41 Pulse 103 H 06/06/21 15:43 Resp 20 06/06/21 07:41 BP 146/62 H 06/06/21 07:41 Pulse Ox 92 06/06/21 07:41 Laboratory Results - last 24 hr 06/06/21 06/06/21 07:27 07:27 WBC 25.26 H* RBC 4.42 Hgb 12.5 Hct 36.6 MCV 82.8 MCH 28.3 MCHC 34.2 RDW 13.2 Plt Count 518 H MPV 9.4 Immature Gran % 0.0 Neutrophils % 71.0 Band Neutrophils % 0 Lymphocytes % 24.0 Monocytes % 5.0 Eosinophils % 0.0 Basophils % 0.0 Nucleated RBC % 0 Absolute Neutrophils 17.93 H Absolute Lymphocytes 6.06 H Absolute Monocytes 1.26 H Absolute Eosinophils 0.00 Absolute Basophils 0.00 RBC Morphology Normal Sodium 128 L Potassium 4.2 Chloride 98 Carbon Dioxide 21.5 Anion Gap 8.5 BUN 18 Creatinine 0.7 Estimated GFR/1.73 m2 >= 60.00 Glucose 96 Calcium 8.1 L Total Bilirubin 0.7 AST 42 H ALT 150 H Alkaline Phosphatase 96 Total Protein 6.3 L Albumin 3.1 L
--- NOTE | 2021-06-06 20:04 | W.PALLCONSUL ---
Date of service: 06/06/21 Time of Service: 14:00 History of Present Illness History of Present Illness Chief Complaint: covid-19, new oxygen dependence, [facility] Narrative: I met with Millicent in her room. She is actively being treated for COVID. She is still coughing. She has a new oxygen dependence. She is using her incentive spiromter; it helps a lot, she reports. She has not worked with PT yet. She feels weak. With help from CESAR Nava, we were able to get her out of her chair. She walked about 5 feet and desatted down to the mid-80s even though she was 91% when she first stood up, on 2.5 L/min. She very much wants to go home tomorrow, or as soon as the hospitalist team feels she is safe to leave. She is willing to work with home health, with both nursing and physical therapy. I explained that this illness has taken more out of her than she realizes. I told her I did not think she would be back to where she was for at least 6 weeks. She is wanting to get vaccinated as soon as she can; she says she was told she has to wait 3 months. She regrets not being vaccinated previously. She lives in her daugther's home, staying on one floor. She does not do stairs. Her daughter works. She reports that she usually does housework--dishes, vaccuuming, laundry. I did not speak to her daughter to confirm her mother's baseline activity level. Millicent denied being at all anxious. Nurses report otherwise. They say she frequently calls the front office coordinator. She seems to have some vagueness to her congitive function. Unable to say whether this is due to her wanting to paint a picture of being ready for discharge, or whether she has some MCI. Consults Consult date: 06/06/21 Requesting physician: Mathew Nobles Assessment and Plan Assessment and plan (1) Respiratory failure with hypoxia: Status: Acute Assessment and plan: Due to Covid. Oxygen dependent at this time. Gave her oximeter from [employer]; advised she should keep her oxygen level >90%. She dropped to 84% with walker about 5 feet. Was wnl at rest. Wants to go home. Does not want rehab stay. Willing to have oxygen and HH involved. Will use her IS. Defer to Hospitalist and Exercise Equipment Specialist re: timing. Qualifiers: Chronicity: acute Qualified Code(s): J96.01 - Acute respiratory failure with hypoxia (2) Pneumonia due to COVID-19 virus: Status: Acute Assessment and plan: Still with cough, hypoxia and crackles. (3) COVID: Status: Acute (4) Shortness of breath: Status: Acute (5) Weakness: Status: Acute Assessment and plan: will need PT at home very debilitated from her illness and hospital stay today was first day that she walked a bit in her room motivated to do more (6) Palliative care patient: Status: Acute Assessment and plan: will follow up with her once she is home, unless she takes a turn prior to discharge (7) Goals of care, counseling/discussion: Status: Acute Assessment and plan: We did not discuss CODE STATUS today. She was very focussed on wanting to make plans to go home, learning what she needed to go home. (8) Frailty syndrome in geriatric patient: Status: Acute Assessment and plan: Does not appear to have a lot of physical resilience at this time, but she is motivated to get stronger. . Review of Systems Constitutional Constitutional: Reports fatigue, Reports lethargy and Reports weakness Comments: slept well last night, best sleep she's had since admission Eyes Eyes: Reports dry eyes and Reports requires corrective lenses ENT Ears, Nose, Mouth, and Throat: Reports dry mouth and Reports disequilibrium Cardiovascular Cardiovascular: Reports rapid heart rate and Reports dyspnea on exertion Respiratory Respiratory: Reports cough and Reports dyspnea on exertion Comments: new oxygen dependence Gastrointestinal Gastrointestinal: Reports constipation and Reports early satiety Genitourinary Genitourinary: Reports urinary incontinence Musculoskeletal Musculoskeletal: Reports abnormal gait (uses a walker), Reports myalgias and Reports muscle weakness Integumentary/Breasts Skin/Breast: Reports dry skin Comments: looks pale Neurologic Neurologic: Reports abnormal gait (uses a walker), Reports memory loss (unclear to what degree), Reports disequilibrium and Reports weakness Psychiatric Psychiatric: Reports anxiety, Reports difficulty concentrating and Reports memory loss (unclear to what degree) Endocrine Endocrine: Reports fatigue [facility] Medical History (Updated 06/06/21 @ 20:16 by Brooke Martin MD) Degenerative cervical disc (11/21/15) 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 Asthma Father Personal history of malignant neoplasm SMALL BOWEL Sister Personal history of malignant neoplasm BREAST Brother Personal history of malignant neoplasm Sister Personal history of malignant neoplasm Social History (Updated 06/06/21 @ 20:20 by Brooke Martin MD) Smoking/Tobacco Use Status: Never Smoking risk assessment performed?: Yes Alcohol Intake: never Drug use: Never Substance use type: does not use Caregiver/Support person: Yes Household members: children and other Details: 2 Housing: house Number of Children: 5 Communication Needs: Hard of Hearing and Corrective Lenses Education Level: high school Do you need help understanding health information?: Often current occupation: retired Pets and animals: No Current gender identity: female What is your relationship status?: How often do you talk on the phone with friends or family?: once per week How often do you get together with friends or relatives?: three or more times per week Panel score (0-1 are the most socially isolated patients): 1 What type of physical activity do you participate in: additional Details: housework Duration: < 15 minutes/day Frequency: 5-6 times per week Luba/Judaism: OTHER Special luba needs: No Seatbelt use: always Working smoke detector in home: Yes Fire extinguisher in home: Yes Do you feel safe at home: Yes Do you feel safe in your relationship?: Yes Additional Social history: Lives with her daughter, in her daughter's home. Stays on first floor. Does not climb stairs. She reports that she does housework regularly, for exercise. Otherwise not active. Vacuums, does dishes, laundry. 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 Has 5 kids total. Female Reproductive History Menstrual Menopause type: natural History History 6 Para 5 Hx # Term Pregnancies 5 Multiple births Hx # Pregnancies Ectopic pregnancies AB induced Hx Number of Living Children 5 AB spontaneous Exam Narrative Exam Narrative: At first she was sitting in her chair, wearing her oxygen, talking with me without distress. Then nurse and I got her up and walked her in her room. When she got short of breath, we helped her back into chair. Const General: cooperative, no acute distress, frail appearing and ill appearing Nutritional Appearance: overweight Orientation: alert and oriented x3 HENMT Head: normocephalic and atraumatic Ears: hearing grossly normal bilaterally General nose exam: external nose normal Face and sinus: normal facial exam and face symmetric Mouth: oral mucosae normal Eyes Conjunctivae: conjunctivae normal Sclera: sclerae normal Neck Neck: no lymphadenopathy and no JVD Chest Chest: normal inspection of the chest Resp Effort & Inspection: normal respiratory effort and able to speak in complete sentences Auscultation: rales (bases) bilaterally at the base Cardio Rate: regular rate Rhythm: regular rhythm Heart Sounds: S1 normal and S2 normal GI Palpation: soft, no masses and nontender Auscultation: normal bowel sounds Back/Spine/Pelvis Back: other (tenderness in subscapular area on right) Skin General skin exam: dry skin and pallor Hair: general thinning Neuro General: patient alert, patient awake, oriented Patient Orientation: Person and Place and no focal motor deficits Cognition: normal cognition (though vague historian ) Gait: gait assisted Method: walker Extrem General: no clubbing, cyanosis or edema and no calf tenderness Psych Appearance: grossly normal Speech and Movement: speech and movement normal Mood: anxious mood Affect: anxious affect Attitude: cooperative Thought Process: impoverished Insight: fair Judgment: fair Results Last Vital Signs Temp 97.5 F L 06/06/21 16:26 Pulse 86 06/06/21 16:26 Resp 20 06/06/21 16:26 BP 148/70 H 06/06/21 16:26 Pulse Ox 93 06/06/21 16:26 Labs Result diagrams: 06/06/21 07:27 06/06/21 07:27 Labs: Laboratory Results - last 24 hr 06/06/21 06/06/21 07:27 07:27 WBC 25.26 H* RBC 4.42 Hgb 12.5 Hct 36.6 MCV 82.8 MCH 28.3 MCHC 34.2 RDW 13.2 Plt Count 518 H MPV 9.4 Immature Gran % 0.0 Neutrophils % 71.0 Band Neutrophils % 0 Lymphocytes % 24.0 Monocytes % 5.0 Eosinophils % 0.0 Basophils % 0.0 Nucleated RBC % 0 Absolute Neutrophils 17.93 H Absolute Lymphocytes 6.06 H Absolute Monocytes 1.26 H Absolute Eosinophils 0.00 Absolute Basophils 0.00 RBC Morphology Normal Sodium 128 L Potassium 4.2 Chloride 98 Carbon Dioxide 21.5 Anion Gap 8.5 BUN 18 Creatinine 0.7 Estimated GFR/1.73 m2 >= 60.00 Glucose 96 Calcium 8.1 L Total Bilirubin 0.7 AST 42 H ALT 150 H Alkaline Phosphatase 96 Total Protein 6.3 L Albumin 3.1 L
[2021-06-06] MEDS: Atorvastatin 40 MG TAB PO (21:09)
[2021-06-06] MEDS: rOPINIRole 0.5 MG TAB 2 MG PO (21:09)
[2021-06-07] VITALS (8 sets, daily range): BP systolic 143–146; BP diastolic 57–59; PULSE 58–87; RESP 16–20; TEMP 36.5–36.8; O2SAT 89–92
--- NOTE | 2021-06-07 | DI.CT_ITS ---
Exam(s) CT CHEST PE CTA EXAM: CT CHEST PE CTA CLINICAL HISTORY: Worsening hypoxia, Covid pneumonia. TECHNIQUE: Imaging Protocol: Axial CT angiography was performed with multi-slice acquisition and mu lti-planar and/or 3D reconstructions. CONTRAST MATERIAL: Intravenous: Omnipaque 350 Contrast volume:66 mL COMPARISON: CT CT CHEST PE CTA from 05/31/2021 FINDINGS: Tracheobronchial tree: Patent where visualized. Pulmonary parenchyma: There again seen diffuse bilateral ground-glass opacities which appears slightl y progressed compared to the prior examination. There are conflict opacities seen also seen. Findin gs are most marked peripherally in the in the lower lobes. No architectural distortion. Pulmonary Arteries: No evidence of filling defect to suggest pulmonary emboli. Mediastinum and [place]: No dominant adenopathy or fluid collection. Small hiatal hernia. Visualized thyroid gland: Unremarkable. Pleura: No effusion or pneumothorax. Heart: The heart is not dilated. No coronary artery calcifications are seen. No pericardial effusion. Aorta: Thoracic aorta non-dilated. Atherosclerosis. No evidence of dissection. Upper abdomen: Stable hepatic hypodensities likely reflecting cysts. Soft tissues: Unremarkable. Bones: Within normal limits. IMPRESSION: 1. No evidence of pulmonary embolism, thoracic aortic dissection or aneurysm. 2. Slight interval progression of the bilateral diffuse pulmonary infiltrates. The findings are cons istent with the patient's diagnosis of COVID-19 pneumonia. RADIATION DOSE DELIVERED: 400.29mGy.cm Total DLP DATA REPOSITORY: All CT scans at this facility are submitted to the National Radiology Data Registry (NRDR) Dose Index Registry (DIR) with the [employer] (ACR). RADIATION OPTIMIZATION: All CT scans at this facility use at least one of these dose optimization te chniques: automated exposure control; mA and/or kV adjustment per patient size (includes targeted exa ms where dose is matched to clinical indication); or iterative reconstruction.
[2021-06-07 07:47] LABS: Abs Immature Grans 0.72 10^3/uL (0.0-0.06); Absolute Basophil Count 0.04 10^3/uL (0.0-0.2); Absolute Eosinophil Count 0.02 10^3/uL (0.0-0.7); Absolute Monocyte Count 1.27 10^3/uL (0.1-0.8); Basophils % 0.2; Eosinophils % 0.1; HCT 34.9 % (36.0-46.0); HGB 12.1 g/dL (11.2-15.7); Immature Grans % 3.3; Lymphocytes % 24.1; MCH 28.6 pg (27.0-33.0); MCHC 34.7 % (32.0-36.0); MCV 82.5 fL (80-95); Monocytes % 5.8; Neutrophils % 66.5; Nucleated RBC 0 %; RBC 4.23 10^6/uL (3.93-5.22); RDW 13.1 % (11.7-14.6); RDW-SD 39.5 fL; WBC 21.91 10^3/uL (4.4-10.8)
[2021-06-07 07:53] LABS: Absolute Lymphocyte Count 5.28 10^3/uL (1.2-3.4); Absolute Neutrophil Count 14.57 10^3/uL (1.2-6.7)
[2021-06-07] MEDS: Enoxaparin 40 MG/0.4 ML SYR SC (08:03)
[2021-06-07] MEDS: hydroCHLOROthiazide 12.5 MG TAB PO (08:03)
[2021-06-07] MEDS: Normal Saline Flush 10 ML SYR IVP (08:03)
[2021-06-07 08:04] LABS: ALT 120 U/L (14-59); AST 32 U/L (15-37); Albumin 3.1 g/dL (3.4-5.0); Alkaline Phosphatase 92 U/L (46-116); Anion Gap 9.1 mmol/L (3-11); BUN 18 mg/dL (7-18); Bilirubin, Total 0.8 mg/dL (0.2-1.0); CO2 22.9 mmol/L (21.0-32.0); CREATININE 0.8 mg/dL (0.55-1.02); Chloride 97 mmol/L (98-107); Glucose 84 mg/dL (74-106); Potassium 4.6 mmol/L (3.5-5.1); Sodium 129 mmol/L (136-145); Total Protein 5.9 g/dL (6.4-8.2)
[2021-06-07] MEDS: Magnesium Oxide 400 MG TAB PO (08:04)
[2021-06-07] MEDS: amLODIPine 5 MG TAB PO (08:04)
[2021-06-07] MEDS: Multivitamin TAB 1 TAB PO (08:04)
[2021-06-07] MEDS: Aspirin E.C. 81 MG TABEC PO (08:04)
[2021-06-07] MEDS: Acetaminophen 325 MG TAB 650 MG PO ×3 (08:04→20:25)
[2021-06-07] MEDS: Dexamethasone 4 MG TAB 6 MG PO (08:04)
--- NOTE | 2021-06-07 08:31 | W.PULMPROG ---
General Date Of Service Date of service: 06/07/21 Time of Service: 07:15 Requesting physician: Mathew Nobles Reason for Consult: Covid pneumonia Subjective Note Note: Millicent states she is doing okay today. When I saw her in the room she was saturating 85% on 4 L nasal cannula. I increased her supplemental oxygen to 6 L which brought her saturation up to 89%. This is in the setting of her sitting comfortably and not in distress in her recliner. She still is having a cough and shortness of breath and per Dr. Martin's palliative care note on an attempt to walk with her she walked 5 feet and desatted significantly to the mid 80s. Exam Const General: no acute distress Nutritional Appearance: well nourished [facility] Head: normocephalic Ears: external ears normal General nose exam: nasal mucous membranes and turbinates normal Face and sinus: sinuses nontender Mouth: oropharynx normal and moist mucous membranes Teeth and gingiva: dentition normal Eyes General: appearance normal, both eyes and all related structures Pupils: PERRL Neck Neck: normal visual inspection and no lymphadenopathy Chest Chest: normal inspection of the chest Resp Effort & Inspection: normal respiratory effort Auscultation: diminished lung sounds, rales bilaterally, no rhonchi and no wheezes Cardio Rate: regular rate Rhythm: regular rhythm Heart Sounds: S1 normal, S2 normal and no murmurs Pulses: radial pulses present bilaterally GI Inspection: normal to inspection Palpation: soft Skin General skin exam: no rashes or lesions noted Neuro General: patient alert, patient awake and patient oriented x3 Extrem General: no clubbing, no cyanosis and edema Laterality: bilateral Psych Mental Status: mental status grossly normal Affect: normal affect Attitude: cooperative Objective Last Vital Signs Temp 36.5 C 06/07/21 08:19 Pulse 87 06/07/21 08:19 Resp 20 06/07/21 08:19 BP 146/57 H 06/07/21 08:19 Pulse Ox 91 L 06/07/21 08:19 Laboratory Results - last 24 hr 06/06/21 06/07/21 07:27 07:25 WBC 25.26 H* RBC 4.42 Hgb 12.5 Hct 36.6 MCV 82.8 MCH 28.3 MCHC 34.2 RDW 13.2 Plt Count 518 H MPV 9.4 Immature Gran % 0.0 Neutrophils % 71.0 Band Neutrophils % 0 Lymphocytes % 24.0 Monocytes % 5.0 Eosinophils % 0.0 Basophils % 0.0 Nucleated RBC % 0 Absolute Neutrophils 17.93 H Absolute Lymphocytes 6.06 H Absolute Monocytes 1.26 H Absolute Eosinophils 0.00 Absolute Basophils 0.00 RBC Morphology Normal Sodium 129 L Potassium 4.6 Chloride 97 L Carbon Dioxide 22.9 Anion Gap 9.1 BUN 18 Creatinine 0.8 Estimated GFR/1.73 m2 >= 60.00 Glucose 84 Calcium 8.0 L Total Bilirubin 0.8 AST 32 ALT 120 H Alkaline Phosphatase 92 Total Protein 5.9 L Albumin 3.1 L Results Medications Medications: Active Medications Generic Name Dose Route Start Last Admin Trade Name Freq PRN Reason Stop Dose Admin Acetaminophen 650 mg 06/05/21 15:15 06/07/21 08:04 Acetaminophen 325 Mg Tab PO 650 mg TID HONEY Administration Amlodipine Besylate 5 mg 06/01/21 08:30 06/07/21 08:04 Amlodipine 5 Mg Tab PO 5 mg DAILY HONEY Administration Aspirin 81 mg 06/01/21 08:30 06/07/21 08:04 Aspirin E.C. 81 Mg Tabec PO 81 mg DAILY HONEY Administration Atorvastatin Calcium 40 mg 06/01/21 20:00 06/06/21 21:09 Atorvastatin 40 Mg Tab PO 40 mg QPM HONEY Administration Baricitinib 4 mg 06/02/21 08:30 06/07/21 08:04 Baricitinib 1 Mg Tab PO 06/16/21 08:29 4 mg DAILY HONEY Administration Dexamethasone 6 mg 06/01/21 08:30 06/07/21 08:04 Dexamethasone 4 Mg Tab PO 6 mg DAILY HONEY Administration Dimethicone/Zinc Oxide 0 gm 05/31/21 21:50 [place] Protect Cream 142 Gm Tube TP PRN PRN Enoxaparin Sodium 40 mg 06/05/21 08:30 06/07/21 08:03 Enoxaparin 40 Mg/0.4 Ml Syr SC 40 mg DAILY HONEY Administration Hydrochlorothiazide 12.5 mg 06/05/21 15:25 06/07/21 08:03 Hydrochlorothiazide 12.5 Mg Tab PO 12.5 mg DAILY HONEY Administration Sodium Chloride 500 mls @ 0 mls/hr 05/31/21 21:37 06/04/21 00:25 Saline 500ml Bag IV 0 mls/hr PRN PRN Infusion As Directed IV Miscellaneous Supplies 1 each 05/31/21 21:45 Iv Access IV DIRECTED HONEY Lorazepam 0.5 mg 06/06/21 22:00 06/06/21 21:09 Lorazepam 0.5 Mg Tab PO 0.5 mg HS HONEY Administration Magnesium Hydroxide 30 ml 05/31/21 21:50 Milk Of Magnesia 30 Ml Cup PO DAILY PRN PRN Magnesium Oxide 400 mg 06/01/21 08:30 06/07/21 08:04 Magnesium Oxide 400 Mg Tab PO 400 mg DAILY HONEY Administration Multivitamins 1 tab 06/01/21 08:30 06/07/21 08:04 Multivitamin Tab PO 1 tab DAILY HONEY Administration Polyethylene Glycol 17 gm 05/31/21 21:50 Polyethylene Glycol 3350 17 Gm Packet PO DAILY PRN PRN Constipation Ropinirole HCl 2 mg 06/06/21 22:00 06/06/21 21:09 Ropinirole 0.5 Mg Tab PO 2 mg HS HONEY Administration Sodium Chloride 0 ml 05/31/21 21:37 06/07/21 08:03 Normal Saline Flush 10 Ml Syr IVP 10 ml PRN PRN Administration Allergies No Known Allergies Allergy (Unverified 05/31/21 20:14) Labs Result Diagrams: 06/06/21 07:27 06/07/21 07:25 Labs: Laboratory Tests Range/Units 05/31/21 05/31/21 05/31/21 20:12 20:20 20:20 WBC (4.4-10.8) 10^3/uL RBC (3.93-5.22) 10^6/uL Hgb (11.2-15.7) g/dL Hct (36.0-46.0) % MCV (80-95) fL MCH (27.0-33.0) pg MCHC (32.0-36.0) % RDW (11.7-14.6) % Plt Count (130-400) 10^3/uL MPV (8.0-11.0) fL Immature Gran % Neutrophils % Band Neutrophils % Lymphocytes % Monocytes % Eosinophils % Basophils % Nucleated RBC % % Absolute Neutrophils (1.2-6.7) 10^3/uL Absolute Lymphocytes (1.2-3.4) 10^3/uL Absolute Monocytes (0.1-0.8) 10^3/uL Absolute Eosinophils (0.0-0.7) 10^3/uL Absolute Basophils (0.0-0.2) 10^3/uL RBC Morphology D-Dimer (<500) ng/mlFEU 1151 H Sodium (136-145) mmol/L 125 L Potassium (3.5-5.1) mmol/L 3.2 L Chloride (98-107) mmol/L 90 L Carbon Dioxide (21.0-32.0) mmol/L 25.8 Anion Gap (3-11) mmol/L 9.2 BUN (7-18) mg/dL 11 Creatinine (0.55-1.02) mg/dL 0.8 Estimated GFR/1.73 m2 (mL/min/1.73m2) >= 60.00 Glucose (74-106) mg/dL 113 H Calcium (8.5-10.1) mg/dL 8.2 L Magnesium (1.8-2.4) mg/dL Total Bilirubin (0.2-1.0) mg/dL 0.6 AST (15-37) U/L 202 H ALT (14-59) U/L 203 H Alkaline Phosphatase (46-116) U/L 129 H Troponin I (<0.06) ng/mL < 0.05 C-Reactive Protein (0.0-0.3) mg/dL 1.43 H NT-Pro-B Natriuret Pep (<300) pg/mL Total Protein (6.4-8.2) g/dL 7.0 Albumin (3.4-5.0) g/dL 3.3 L Procalcitonin ng/mL COVID-19 Source Nasal/Nares SARS-CoV-2 (PCR) (Negative) POSITIVE A* Patient ABO/Rh Antibody Screen Range/Units 05/31/21 05/31/21 05/31/21 20:20 20:20 23:15 WBC (4.4-10.8) 10^3/uL 7.03 RBC (3.93-5.22) 10^6/uL 4.71 Hgb (11.2-15.7) g/dL 13.2 Hct (36.0-46.0) % 38.2 MCV (80-95) fL 81.1 MCH (27.0-33.0) pg 28.0 MCHC (32.0-36.0) % 34.6 RDW (11.7-14.6) % 13.1 Plt Count (130-400) 10^3/uL 274 MPV (8.0-11.0) fL 11.0 Immature Gran % 0.7 Neutrophils % 55.5 Band Neutrophils % Lymphocytes % 32.9 Monocytes % 10.8 Eosinophils % 0.0 Basophils % 0.1 Nucleated RBC % % 0 Absolute Neutrophils (1.2-6.7) 10^3/uL 3.90 Absolute Lymphocytes (1.2-3.4) 10^3/uL 2.31 Absolute Monocytes (0.1-0.8) 10^3/uL 0.76 Absolute Eosinophils (0.0-0.7) 10^3/uL 0.00 Absolute Basophils (0.0-0.2) 10^3/uL 0.01 RBC Morphology D-Dimer (<500) ng/mlFEU Sodium (136-145) mmol/L Potassium (3.5-5.1) mmol/L Chloride (98-107) mmol/L Carbon Dioxide (21.0-32.0) mmol/L Anion Gap (3-11) mmol/L BUN (7-18) mg/dL Creatinine (0.55-1.02) mg/dL Estimated GFR/1.73 m2 (mL/min/1.73m2) Glucose (74-106) mg/dL Calcium (8.5-10.1) mg/dL Magnesium (1.8-2.4) mg/dL 2.0 Total Bilirubin (0.2-1.0) mg/dL AST (15-37) U/L ALT (14-59) U/L Alkaline Phosphatase (46-116) U/L Troponin I (<0.06) ng/mL < 0.05 C-Reactive Protein (0.0-0.3) mg/dL NT-Pro-B Natriuret Pep (<300) pg/mL Total Protein (6.4-8.2) g/dL Albumin (3.4-5.0) g/dL Procalcitonin ng/mL COVID-19 Source SARS-CoV-2 (PCR) (Negative) Patient ABO/Rh Antibody Screen Range/Units 06/01/21 06/01/21 06/01/21 07:15 07:15 07:15 WBC (4.4-10.8) 10^3/uL 3.81 L D RBC (3.93-5.22) 10^6/uL 4.29 Hgb (11.2-15.7) g/dL 12.2 Hct (36.0-46.0) % 35.5 L MCV (80-95) fL 82.8 MCH (27.0-33.0) pg 28.4 MCHC (32.0-36.0) % 34.4 RDW (11.7-14.6) % 13.2 Plt Count (130-400) 10^3/uL 293 MPV (8.0-11.0) fL 10.6 Immature Gran % 1.3 Neutrophils % 50.6 Band Neutrophils % Lymphocytes % 42.3 Monocytes % 5.8 Eosinophils % 0.0 Basophils % 0.0 Nucleated RBC % % 0 Absolute Neutrophils (1.2-6.7) 10^3/uL 1.93 Absolute Lymphocytes (1.2-3.4) 10^3/uL 1.61 Absolute Monocytes (0.1-0.8) 10^3/uL 0.22 Absolute Eosinophils (0.0-0.7) 10^3/uL 0.00 Absolute Basophils (0.0-0.2) 10^3/uL 0.00 RBC Morphology D-Dimer (<500) ng/mlFEU Sodium (136-145) mmol/L 131 L Potassium (3.5-5.1) mmol/L 4.9 D Chloride (98-107) mmol/L 99 Carbon Dioxide (21.0-32.0) mmol/L 22.8 Anion Gap (3-11) mmol/L 9.2 BUN (7-18) mg/dL 12 Creatinine (0.55-1.02) mg/dL 0.7 Estimated GFR/1.73 m2 (mL/min/1.73m2) >= 60.00 Glucose (74-106) mg/dL 160 H Calcium (8.5-10.1) mg/dL 7.9 L Magnesium (1.8-2.4) mg/dL Total Bilirubin (0.2-1.0) mg/dL 0.4 AST (15-37) U/L 165 H ALT (14-59) U/L 178 H Alkaline Phosphatase (46-116) U/L 114 Troponin I (<0.06) ng/mL C-Reactive Protein (0.0-0.3) mg/dL NT-Pro-B Natriuret Pep (<300) pg/mL 198 Total Protein (6.4-8.2) g/dL 5.5 L Albumin (3.4-5.0) g/dL 2.7 L Procalcitonin ng/mL COVID-19 Source SARS-CoV-2 (PCR) (Negative) Patient ABO/Rh Antibody Screen Range/Units 06/01/21 06/01/21 06/02/21 10:25 10:25 06:57 WBC (4.4-10.8) 10^3/uL RBC (3.93-5.22) 10^6/uL Hgb (11.2-15.7) g/dL Hct (36.0-46.0) % MCV (80-95) fL MCH (27.0-33.0) pg MCHC (32.0-36.0) % RDW (11.7-14.6) % Plt Count (130-400) 10^3/uL MPV (8.0-11.0) fL Immature Gran % Neutrophils % Band Neutrophils % Lymphocytes % Monocytes % Eosinophils % Basophils % Nucleated RBC % % Absolute Neutrophils (1.2-6.7) 10^3/uL Absolute Lymphocytes (1.2-3.4) 10^3/uL Absolute Monocytes (0.1-0.8) 10^3/uL Absolute Eosinophils (0.0-0.7) 10^3/uL Absolute Basophils (0.0-0.2) 10^3/uL RBC Morphology D-Dimer (<500) ng/mlFEU Sodium (136-145) mmol/L Potassium (3.5-5.1) mmol/L Chloride (98-107) mmol/L Carbon Dioxide (21.0-32.0) mmol/L Anion Gap (3-11) mmol/L BUN (7-18) mg/dL Creatinine (0.55-1.02) mg/dL Estimated GFR/1.73 m2 (mL/min/1.73m2) Glucose (74-106) mg/dL Calcium (8.5-10.1) mg/dL Magnesium (1.8-2.4) mg/dL Total Bilirubin (0.2-1.0) mg/dL AST (15-37) U/L ALT (14-59) U/L Alkaline Phosphatase (46-116) U/L Troponin I (<0.06) ng/mL C-Reactive Protein (0.0-0.3) mg/dL 0.64 H NT-Pro-B Natriuret Pep (<300) pg/mL Total Protein (6.4-8.2) g/dL Albumin (3.4-5.0) g/dL Procalcitonin ng/mL < 0.1 COVID-19 Source SARS-CoV-2 (PCR) (Negative) Patient ABO/Rh O Negative Antibody Screen NEGATIVE Range/Units 06/02/21 06/02/21 06/02/21 06:57 06:57 06:57 WBC (4.4-10.8) 10^3/uL 11.81 H D RBC (3.93-5.22) 10^6/uL 4.18 Hgb (11.2-15.7) g/dL 11.9 Hct (36.0-46.0) % 34.7 L MCV (80-95) fL 83.0 MCH (27.0-33.0) pg 28.5 MCHC (32.0-36.0) % 34.3 RDW (11.7-14.6) % 13.3 Plt Count (130-400) 10^3/uL 403 H MPV (8.0-11.0) fL 10.1 Immature Gran % 1.2 Neutrophils % 60.7 Band Neutrophils % Lymphocytes % 26.8 Monocytes % 11.1 Eosinophils % 0.0 Basophils % 0.2 Nucleated RBC % % 0 Absolute Neutrophils (1.2-6.7) 10^3/uL 7.17 H Absolute Lymphocytes (1.2-3.4) 10^3/uL 3.17 Absolute Monocytes (0.1-0.8) 10^3/uL 1.31 H Absolute Eosinophils (0.0-0.7) 10^3/uL 0.00 Absolute Basophils (0.0-0.2) 10^3/uL 0.02 RBC Morphology D-Dimer (<500) ng/mlFEU 560 H Sodium (136-145) mmol/L 127 L Potassium (3.5-5.1) mmol/L 4.3 Chloride (98-107) mmol/L 98 Carbon Dioxide (21.0-32.0) mmol/L 22.0 Anion Gap (3-11) mmol/L 7.0 BUN (7-18) mg/dL 18 D Creatinine (0.55-1.02) mg/dL 0.6 Estimated GFR/1.73 m2 (mL/min/1.73m2) >= 60.00 Glucose (74-106) mg/dL 128 H Calcium (8.5-10.1) mg/dL 8.0 L Magnesium (1.8-2.4) mg/dL Total Bilirubin (0.2-1.0) mg/dL 0.4 AST (15-37) U/L 126 H ALT (14-59) U/L 169 H Alkaline Phosphatase (46-116) U/L 105 Troponin I (<0.06) ng/mL C-Reactive Protein (0.0-0.3) mg/dL NT-Pro-B Natriuret Pep (<300) pg/mL Total Protein (6.4-8.2) g/dL 5.7 L Albumin (3.4-5.0) g/dL 2.6 L Procalcitonin ng/mL COVID-19 Source SARS-CoV-2 (PCR) (Negative) Patient ABO/Rh Antibody Screen Range/Units 06/03/21 06/03/21 06/03/21 07:15 07:15 07:15 WBC (4.4-10.8) 10^3/uL 13.35 H RBC (3.93-5.22) 10^6/uL 4.16 Hgb (11.2-15.7) g/dL 11.6 Hct (36.0-46.0) % 34.2 L MCV (80-95) fL 82.2 MCH (27.0-33.0) pg 27.9 MCHC (32.0-36.0) % 33.9 RDW (11.7-14.6) % 13.3 Plt Count (130-400) 10^3/uL 464 H MPV (8.0-11.0) fL 10.4 Immature Gran % 1.6 Neutrophils % 59.5 Band Neutrophils % Lymphocytes % 28.5 Monocytes % 10.3 Eosinophils % 0.0 Basophils % 0.1 Nucleated RBC % % 0 Absolute Neutrophils (1.2-6.7) 10^3/uL 7.94 H Absolute Lymphocytes (1.2-3.4) 10^3/uL 3.80 H Absolute Monocytes (0.1-0.8) 10^3/uL 1.38 H Absolute Eosinophils (0.0-0.7) 10^3/uL 0.00 Absolute Basophils (0.0-0.2) 10^3/uL 0.01 RBC Morphology D-Dimer (<500) ng/mlFEU 396 Sodium (136-145) mmol/L 129 L Potassium (3.5-5.1) mmol/L 4.4 Chloride (98-107) mmol/L 98 Carbon Dioxide (21.0-32.0) mmol/L 22.4 Anion Gap (3-11) mmol/L 8.6 BUN (7-18) mg/dL 20 H Creatinine (0.55-1.02) mg/dL 0.6 Estimated GFR/1.73 m2 (mL/min/1.73m2) >= 60.00 Glucose (74-106) mg/dL 106 Calcium (8.5-10.1) mg/dL 7.7 L Magnesium (1.8-2.4) mg/dL Total Bilirubin (0.2-1.0) mg/dL 0.5 AST (15-37) U/L 97 H ALT (14-59) U/L 158 H Alkaline Phosphatase (46-116) U/L 98 Troponin I (<0.06) ng/mL C-Reactive Protein (0.0-0.3) mg/dL NT-Pro-B Natriuret Pep (<300) pg/mL Total Protein (6.4-8.2) g/dL 5.5 L Albumin (3.4-5.0) g/dL 2.6 L Procalcitonin ng/mL COVID-19 Source SARS-CoV-2 (PCR) (Negative) Patient ABO/Rh Antibody Screen Range/Units 06/04/21 06/04/21 06/04/21 06:37 06:37 06:37 WBC (4.4-10.8) 10^3/uL 16.85 H RBC (3.93-5.22) 10^6/uL 4.21 Hgb (11.2-15.7) g/dL 12.0 Hct (36.0-46.0) % 35.4 L MCV (80-95) fL 84.1 MCH (27.0-33.0) pg 28.5 MCHC (32.0-36.0) % 33.9 RDW (11.7-14.6) % 13.4 Plt Count (130-400) 10^3/uL 516 H MPV (8.0-11.0) fL 9.9 Immature Gran % 2.0 Neutrophils % 61.5 Band Neutrophils % Lymphocytes % 26.7 Monocytes % 9.7 Eosinophils % 0.0 Basophils % 0.1 Nucleated RBC % % 0 Absolute Neutrophils (1.2-6.7) 10^3/uL 10.36 H Absolute Lymphocytes (1.2-3.4) 10^3/uL 4.50 H Absolute Monocytes (0.1-0.8) 10^3/uL 1.63 H Absolute Eosinophils (0.0-0.7) 10^3/uL 0.00 Absolute Basophils (0.0-0.2) 10^3/uL 0.02 RBC Morphology Normal D-Dimer (<500) ng/mlFEU Sodium (136-145) mmol/L 129 L Potassium (3.5-5.1) mmol/L 4.8 Chloride (98-107) mmol/L 98 Carbon Dioxide (21.0-32.0) mmol/L 21.1 Anion Gap (3-11) mmol/L 9.9 BUN (7-18) mg/dL 21 H Creatinine (0.55-1.02) mg/dL 0.7 Estimated GFR/1.73 m2 (mL/min/1.73m2) >= 60.00 Glucose (74-106) mg/dL 102 Calcium (8.5-10.1) mg/dL 7.8 L Magnesium (1.8-2.4) mg/dL Total Bilirubin (0.2-1.0) mg/dL 0.5 AST (15-37) U/L 84 H ALT (14-59) U/L 171 H Alkaline Phosphatase (46-116) U/L 104 Troponin I (<0.06) ng/mL C-Reactive Protein (0.0-0.3) mg/dL NT-Pro-B Natriuret Pep (<300) pg/mL Total Protein (6.4-8.2) g/dL 5.6 L Albumin (3.4-5.0) g/dL 2.9 L Procalcitonin ng/mL < 0.1 COVID-19 Source SARS-CoV-2 (PCR) (Negative) Patient ABO/Rh Antibody Screen Range/Units 06/04/21 06/05/21 06/05/21 06:37 07:00 07:00 WBC (4.4-10.8) 10^3/uL 23.91 H D RBC (3.93-5.22) 10^6/uL 4.39 Hgb (11.2-15.7) g/dL 12.5 Hct (36.0-46.0) % 36.6 MCV (80-95) fL 83.4 MCH (27.0-33.0) pg 28.5 MCHC (32.0-36.0) % 34.2 RDW (11.7-14.6) % 13.2 Plt Count (130-400) 10^3/uL 591 H MPV (8.0-11.0) fL 9.7 Immature Gran % 2.0 Neutrophils % 67.9 Band Neutrophils % Lymphocytes % 21.1 Monocytes % 8.8 Eosinophils % 0.0 Basophils % 0.2 Nucleated RBC % % 0 Absolute Neutrophils (1.2-6.7) 10^3/uL 16.23 H Absolute Lymphocytes (1.2-3.4) 10^3/uL 5.05 H Absolute Monocytes (0.1-0.8) 10^3/uL 2.10 H Absolute Eosinophils (0.0-0.7) 10^3/uL 0.00 Absolute Basophils (0.0-0.2) 10^3/uL 0.05 RBC Morphology Normal D-Dimer (<500) ng/mlFEU 337 Sodium (136-145) mmol/L 128 L Potassium (3.5-5.1) mmol/L 4.6 Chloride (98-107) mmol/L 98 Carbon Dioxide (21.0-32.0) mmol/L 21.0 Anion Gap (3-11) mmol/L 9.0 BUN (7-18) mg/dL 22 H Creatinine (0.55-1.02) mg/dL 0.7 Estimated GFR/1.73 m2 (mL/min/1.73m2) >= 60.00 Glucose (74-106) mg/dL 102 Calcium (8.5-10.1) mg/dL 8.0 L Magnesium (1.8-2.4) mg/dL Total Bilirubin (0.2-1.0) mg/dL 0.6 AST (15-37) U/L 70 H ALT (14-59) U/L 178 H Alkaline Phosphatase (46-116) U/L 102 Troponin I (<0.06) ng/mL C-Reactive Protein (0.0-0.3) mg/dL < 0.05 NT-Pro-B Natriuret Pep (<300) pg/mL Total Protein (6.4-8.2) g/dL 6.2 L Albumin (3.4-5.0) g/dL 3.1 L Procalcitonin ng/mL COVID-19 Source SARS-CoV-2 (PCR) (Negative) Patient ABO/Rh Antibody Screen Range/Units 06/05/21 06/06/21 06/06/21 07:00 07:27 07:27 WBC (4.4-10.8) 10^3/uL 25.26 H* RBC (3.93-5.22) 10^6/uL 4.42 Hgb (11.2-15.7) g/dL 12.5 Hct (36.0-46.0) % 36.6 MCV (80-95) fL 82.8 MCH (27.0-33.0) pg 28.3 MCHC (32.0-36.0) % 34.2 RDW (11.7-14.6) % 13.2 Plt Count (130-400) 10^3/uL 518 H MPV (8.0-11.0) fL 9.4 Immature Gran % 0.0 Neutrophils % 71.0 Band Neutrophils % 0 Lymphocytes % 24.0 Monocytes % 5.0 Eosinophils % 0.0 Basophils % 0.0 Nucleated RBC % % 0 Absolute Neutrophils (1.2-6.7) 10^3/uL 17.93 H Absolute Lymphocytes (1.2-3.4) 10^3/uL 6.06 H Absolute Monocytes (0.1-0.8) 10^3/uL 1.26 H Absolute Eosinophils (0.0-0.7) 10^3/uL 0.00 Absolute Basophils (0.0-0.2) 10^3/uL 0.00 RBC Morphology Normal D-Dimer (<500) ng/mlFEU 292 Sodium (136-145) mmol/L 128 L Potassium (3.5-5.1) mmol/L 4.2 Chloride (98-107) mmol/L 98 Carbon Dioxide (21.0-32.0) mmol/L 21.5 Anion Gap (3-11) mmol/L 8.5 BUN (7-18) mg/dL 18 Creatinine (0.55-1.02) mg/dL 0.7 Estimated GFR/1.73 m2 (mL/min/1.73m2) >= 60.00 Glucose (74-106) mg/dL 96 Calcium (8.5-10.1) mg/dL 8.1 L Magnesium (1.8-2.4) mg/dL Total Bilirubin (0.2-1.0) mg/dL 0.7 AST (15-37) U/L 42 H ALT (14-59) U/L 150 H Alkaline Phosphatase (46-116) U/L 96 Troponin I (<0.06) ng/mL C-Reactive Protein (0.0-0.3) mg/dL NT-Pro-B Natriuret Pep (<300) pg/mL Total Protein (6.4-8.2) g/dL 6.3 L Albumin (3.4-5.0) g/dL 3.1 L Procalcitonin ng/mL COVID-19 Source SARS-CoV-2 (PCR) (Negative) Patient ABO/Rh Antibody Screen Range/Units 06/07/21 07:25 WBC (4.4-10.8) 10^3/uL RBC (3.93-5.22) 10^6/uL Hgb (11.2-15.7) g/dL Hct (36.0-46.0) % MCV (80-95) fL MCH (27.0-33.0) pg MCHC (32.0-36.0) % RDW (11.7-14.6) % Plt Count (130-400) 10^3/uL MPV (8.0-11.0) fL Immature Gran % Neutrophils % Band Neutrophils % Lymphocytes % Monocytes % Eosinophils % Basophils % Nucleated RBC % % Absolute Neutrophils (1.2-6.7) 10^3/uL Absolute Lymphocytes (1.2-3.4) 10^3/uL Absolute Monocytes (0.1-0.8) 10^3/uL Absolute Eosinophils (0.0-0.7) 10^3/uL Absolute Basophils (0.0-0.2) 10^3/uL RBC Morphology D-Dimer (<500) ng/mlFEU Sodium (136-145) mmol/L 129 L Potassium (3.5-5.1) mmol/L 4.6 Chloride (98-107) mmol/L 97 L Carbon Dioxide (21.0-32.0) mmol/L 22.9 Anion Gap (3-11) mmol/L 9.1 BUN (7-18) mg/dL 18 Creatinine (0.55-1.02) mg/dL 0.8 Estimated GFR/1.73 m2 (mL/min/1.73m2) >= 60.00 Glucose (74-106) mg/dL 84 Calcium (8.5-10.1) mg/dL 8.0 L Magnesium (1.8-2.4) mg/dL Total Bilirubin (0.2-1.0) mg/dL 0.8 AST (15-37) U/L 32 ALT (14-59) U/L 120 H Alkaline Phosphatase (46-116) U/L 92 Troponin I (<0.06) ng/mL C-Reactive Protein (0.0-0.3) mg/dL NT-Pro-B Natriuret Pep (<300) pg/mL Total Protein (6.4-8.2) g/dL 5.9 L Albumin (3.4-5.0) g/dL 3.1 L Procalcitonin ng/mL COVID-19 Source SARS-CoV-2 (PCR) (Negative) Patient ABO/Rh Antibody Screen Assessment and Plan Assessment and plan (1) Pneumonia due to COVID-19 virus: Status: Acute (2) Leukocytosis: Status: Acute Qualifiers: Leukocytosis type: unspecified Qualified Code(s): D72.829 - Elevated white blood cell count, unspecified (3) Respiratory failure with hypoxia: Status: Acute Assessment and plan: This is an 81-year-old woman who is unvaccinated found to have Covid pneumonia. Although yesterday it seemed as though she was turning a corner and improving this morning she is more hypoxic with increasing supplemental oxygen requirements. Given her decreased mobility in the setting of being in the hospital and having Covid I worry that she could have developed a blood clot. She may require going back on high flow nasal cannula if her saturations continue to dwindle. Additionally although she does not have an increase in symptoms her white count has increased and maintained elevated the past couple days. CAT scan will also allow us to see if there is worsening infiltrate. It may be worth starting her on empiric antibiotic coverage given her worsening clinical status. COVID-19 PNA with hypoxic respiratory failure - supplementall oxygen to maintain saturations over 90%. - agree with Decadron, remdesivir and barcitinib course - recommend incentive spirometry and VibraPEP - recommend negative fluid balance daily (negative 500cc-1L) - recommend staying on precautions while in the hospital until she is symptoms free - recommend CT with PE protocol to rule out pulmonary embolism Leukocytosis - recommend starting empiric antibiotic coverage with ceftriaxone and azithromycin given clinical decline Qualifiers: Chronicity: acute Qualified Code(s): J96.01 - Acute respiratory failure with hypoxia
[2021-06-07 08:36] LABS: Diff Comment Diff Reviewed; RBC Morphology Normal
--- NOTE | 2021-06-07 08:40 | CMPROGNOTE_ITS ---
Care Management Progress Note S/O: Millicent remains on precautions for Covid 19, her oxygen needs mandy overnight and she had a repeat Chest CT to rule out PE. Per MD, CT showed slightly worsening pneumonia. CM spoke with Millicent's daughter, Sandra who is her point of contact, health care agent and whom Millicent resides with. CM notified MD as family stated MD has been updating Xochitl who resides out of the area, Xochitl is listed as person to notify in demographics, CM updated contacts and faxed to [facility]. SAMANTHA spoke with Hiram who required support to regulate as he reported not being updated as anticipated. CM apologized for delay and reviewed updates. Hiram stated he, his , and Sandra had all had Covid. He stated he was not vaccinated and his illness was much worse in presentation and duration than his and sister. He reported as the family has been exposed to Covid, there would not be concerns with caring for Millicent at home, though everyone works and the family would be creating a schedule together to support Millicent at home. CM reviewed tele-visit capabilities if family members which to connect with Millicent, Hiram reported the family was discussing bring a tablet into Millicent as well. CM reviewed best practices with family contact; Hiram reported his sister Sandra is the family point person, and he was agreeable to CM and MD following up with her moving forward. CM spoke with Sandra who echoed Hiram's concerns and stated she would be encouraging Millicent to accept home health for added support at home. She inquired to additional options; CM reviewed SNF though Sandra reports feeling confident that Millicent would not be agreeable. Per CM conversations, the family anticipates daily updates after morning meeting while Millicent is at [facility]-Sandra will be updated directly and keep her family members updated. Sandra stated her mother has sounded more confused over the phone while admitted and has provided different information to different family members. CM will continue to follow. A: Millicent is an 81 year old female admitted to [facility] on 05/31/21 for Hypoxia, Covid-19 P: Anticipate Millicent will return home with new RN/PT/OT and possible new O2; to be determined by progress. Millicent will follow up with her PCP and plan of care as prescribed. She will transport home via private vehicle by family. CM continues to follow.
[2021-06-07] MEDS: Omnipaque 350 MG/ML 100 ML BTL 66 ML IJ (10:07)
--- NOTE | 2021-06-07 14:16 | W.PM.PROGNOT ---
Date of Service Date of service: 06/07/21 Time of Service: 14:17 Assessment and Plan Assessment and plan (1) Pneumonia due to COVID-19 virus: Status: Acute Assessment and plan: Continue baricitinib,decadron, atorvastatin, anticoagulation. Remdesivir course completed. CRP and d dimer normalized. On 4L currently with O2 saturations of 90-92%. If resting O2 sats. improved, will perform exercise oxygen testing tomorrow. (2) Hypokalemia: Status: Acute Assessment and plan: Normalized. (3) Hyponatremia: Status: Acute Assessment and plan: Na now 128 Monitor. (4) Essential hypertension: Status: Chronic Assessment and plan: continue amlodipine and HCTZ SBP in the 130-140's range.. Subjective Subjective Patient reports: no new complaints, tolerating a regular diet and afebrile; denies nausea and vomiting Interval history since last seen: Pt would like to go home today. She is ambulating in the room frequently. Exam Narrative Exam Narrative: Standing/pacing. Const General: cooperative and no acute distress Nutritional Appearance: overweight Orientation: alert and oriented x3 HENMT Head: normocephalic and atraumatic Neck Neck: no JVD Resp Effort & Inspection: normal respiratory effort Auscultation: clear to auscultation bilaterally Cardio Rate: regular rate Rhythm: regular rhythm Heart Sounds: S1 normal and S2 normal GI Palpation: soft and nontender Auscultation: normal bowel sounds Back/Spine/Pelvis Back: other (tenderness in subscapular area on right) Neuro General: no focal motor deficits Cognition: normal cognition Extrem General: no clubbing, cyanosis or edema and no calf tenderness Objective Last Vital Signs Temp 36.5 C 06/07/21 08:19 Pulse 87 06/07/21 08:19 Resp 20 06/07/21 08:19 BP 146/57 H 06/07/21 08:19 Pulse Ox 91 L 06/07/21 11:41 Laboratory Results - last 24 hr 06/07/21 06/07/21 07:25 07:25 WBC 21.91 H RBC 4.23 Hgb 12.1 Hct 34.9 L MCV 82.5 MCH 28.6 MCHC 34.7 RDW 13.1 Plt Count MPV Immature Gran % 3.3 Neutrophils % 66.5 Lymphocytes % 24.1 Monocytes % 5.8 Eosinophils % 0.1 Basophils % 0.2 Nucleated RBC % 0 Absolute Neutrophils 14.57 H Absolute Lymphocytes 5.28 H Absolute Monocytes 1.27 H Absolute Eosinophils 0.02 Absolute Basophils 0.04 RBC Morphology Normal Sodium 129 L Potassium 4.6 Chloride 97 L Carbon Dioxide 22.9 Anion Gap 9.1 BUN 18 Creatinine 0.8 Estimated GFR/1.73 m2 >= 60.00 Glucose 84 Calcium 8.0 L Total Bilirubin 0.8 AST 32 ALT 120 H Alkaline Phosphatase 92 Total Protein 5.9 L Albumin 3.1 L
[2021-06-07] MEDS: Atorvastatin 40 MG TAB PO (20:26)
[2021-06-07] MEDS: LORazepam 0.5 MG TAB PO (21:37)
[2021-06-07] MEDS: rOPINIRole 0.5 MG TAB 2 MG PO (21:37)
[2021-06-08] VITALS (7 sets, daily range): BP systolic 136–146; BP diastolic 67–72; PULSE 69–90; RESP 16–20; TEMP 36; O2SAT 80–93
[2021-06-08 07:10] LABS: HCT 35.7 % (36.0-46.0); HGB 12.4 g/dL (11.2-15.7); MCH 28.4 pg (27.0-33.0); MCHC 34.7 % (32.0-36.0); MCV 81.9 fL (80-95); MPV 9.5 fL (8.0-11.0); Nucleated RBC 0 %; Platelet Count 603 10^3/uL (130-400); RBC 4.36 10^6/uL (3.93-5.22); RDW 12.9 % (11.7-14.6); RDW-SD 38.7 fL
[2021-06-08 07:35] LABS: ALT 109 U/L (14-59); AST 27 U/L (15-37); Alkaline Phosphatase 87 U/L (46-116); Anion Gap 10.2 mmol/L (3-11); BUN 19 mg/dL (7-18); Bilirubin, Total 0.8 mg/dL (0.2-1.0); CO2 22.8 mmol/L (21.0-32.0); CREATININE 0.7 mg/dL (0.55-1.02); Calcium 8.2 mg/dL (8.5-10.1); Chloride 95 mmol/L (98-107); Glucose 91 mg/dL (74-106); Potassium 4.3 mmol/L (3.5-5.1); Sodium 128 mmol/L (136-145); Total Protein 6.2 g/dL (6.4-8.2); WBC 26.53 10^3/uL (4.4-10.8)
[2021-06-08 07:36] LABS: Absolute Lymphocyte Count 5.57 10^3/uL (1.2-3.4); Absolute Neutrophil Count 19.63 10^3/uL (1.2-6.7); Bands % 5; Diff Comment Manual Differential; Myelocytes % 2; RBC Morphology Normal
[2021-06-08] MEDS: Enoxaparin 40 MG/0.4 ML SYR SC (08:39)
[2021-06-08] MEDS: Normal Saline Flush 10 ML SYR IVP (08:39)
[2021-06-08] MEDS: Magnesium Oxide 400 MG TAB PO (08:40)
[2021-06-08] MEDS: Multivitamin TAB 1 TAB PO (08:40)
[2021-06-08] MEDS: Acetaminophen 325 MG TAB 650 MG PO ×2 (08:40→14:04)
[2021-06-08] MEDS: Aspirin E.C. 81 MG TABEC PO (08:40)
[2021-06-08] MEDS: hydroCHLOROthiazide 12.5 MG TAB PO (08:40)
[2021-06-08] MEDS: amLODIPine 5 MG TAB PO (08:40)
[2021-06-08] MEDS: Dexamethasone 4 MG TAB 6 MG PO (08:41)
--- NOTE | 2021-06-08 12:04 | PDOC.HHF2F ---
Home Health Certification Home Health Certification: 1. Encounter Date and Reason I certify that Millicent Casillas was seen by Mathew Nobles MD on 06/08/21 and that I had a [id number] encounter with this patient that meets the physician face to face encounter requirements. 2. Clinical Findings Supporting Skilled Need and Homebound Status I certify that home health services are medically necessary, include either intermittent long term and/or physical/speech therapy, and that this patient is homebound in that absences from the home require considerable and taxing effort and are infrequent or of short duration, or are attributable to the need to receive medical care. [X] (a) Attached documentation from encounter provides clinical findings supporting skilled need and homebound status (including what assistance patient requires to leave the home). The encounter with the patient was in whole, or in part, for the following medical condition, which is the primary reason for home health care: Hypoxia, Covid Positive Correction:Evaluate, treat and monitor respiratory status. + Covid Pneumonia. Medication monitoring; steroid taper Physical Therapy/Occupation Therapy:Evaluate and treat; strengthening, balance, endurance. Speech Therapy: Homebound: Secondary to Covid Pneumonia and requires assistance of another person out of the home d/t generalized weakness. 3. Certification and Authentication I certify that I composed the above information based on my clinical judgement relating to this patient's medical condition and, if applicable, clinical findings communicated to me by the NPP or inpatient physician who performed the Home Health Referral. All further orders will be obtained through Jese Gonzalez (Community Based Physician - PCP)
--- NOTE | 2021-06-08 12:06 | DSE_ITS ---
Date of service: 06/08/21 Time of Service: 12:07 DS: Diagnosis Discharge Diagnosis (1) Pneumonia due to COVID-19 virus: Status: Acute (2) Hypokalemia: Status: Acute (3) Hyponatremia: Status: Acute (4) Essential hypertension: Status: Chronic Discharge Plan Disposition Patient Disposition: HOME W/HOME HEALTH SERVICE Condition: Improving Discharge Details Reason For Visit: Hypoxia, Covid Positive Admit Date/Time: 05/31/21 21:38 Admit Provider: Mathew Nobles Attending Provider: Mathew Nobles Primary Care Provider: Jese Gonzalez Hospital Course Hospital Course: This is an 81 yo female with a recent (05/28/21) dx of Covid PNA, lumbar stenosis, HLD, HTN. She was discharged from the ED at [facility] on 05/28/21 with newly diagnosed Covid PNA (unvaccinated). She was sent home with an O2 saturation monitor. She returned to the ED after noting O2 saturation readings in the 80's. She otherwise endorsed that her cough had resolved but she was noting more fatigue. No shortness of breath / dyspnea. No F/C, CP/palpitations, N/V/abd pain. When placed on 3L supplemental O2 per NC her O2 saturation improved to 94%. Lab values: WBC count normal. D-dimer 1151, CRP 1.43. K 3.2.Na 125. AST 202, ALT 201. Troponin neg. IV Dexamethasone administered in the ED. Cont daily dexamethason. Initiated remdesivir 200mg IV initially, then 100mng IV daily for total of 5 days. She was on a continuous oxygen saturation monitor. She could not tolerate the recommended delivery of respiratory support with CPAP. She did tolerate high flow nasal cannula. Her supplemental oxygen demands very slowly improved until on the day of discharge she was able to maintain adequate oxygen saturations on 4L NC. Her inflammatory markers normalized. She will d/c on a rapid medrol taper. Home Health nursing, PT/OT ordered. She was encouraged to receive a COVID vaccination in 3 months. Follow up with PCP in 1-2 weeks. Home Meds and New Rx's Prescriptions: New Medrol 2 mg tablet See Rx Instructions .ROUTE .COMPLEX Qty: 7 RF: 0 Continued hydrochlorothiazide 12.5 mg capsule 12.5 mg PO DAILY Qty: 90 RF: 12 multivitamin [Daily Multi-Vitamin] tablet 1 tab PO DAILY AM Qty: 90 RF: 12 acetaminophen [Acetaminophen Extra Strength] 500 mg tablet 1,000 mg PO Q6H PRN PRN (Reason: fever or pain) Qty: 180 RF: 4 amlodipine 5 mg tablet 5 mg PO DAILY Qty: 90 RF: 12 aspirin [Aspir-81] 81 mg tablet,delayed release (DR/EC) 81 mg PO DAILY AM Qty: 90 RF: 12 ropinirole 1 mg tablet 1.5 mg PO HS Qty: 135 RF: 6 halobetasol propionate 0.05 % cream 1 applic TP DAILY RF: 0 cyanocobalamin (vitamin B-12) 1,000 mcg capsule 1,000 mcg PO DAILY RF: 0 magnesium oxide 400 mg magnesium capsule 400 mg PO DAILY RF: 0 ibuprofen [Ibuprofen IB] 200 MG tablet 200 - 600 mg PO PRN PRNRF: 0 Discharge Instructions Instructions: COVID-19 (Coronavirus Disease 2019) (DC) Stand Alone Forms: Nursing Discharge Form Referrals: Jese Gonzalez NP [Primary Care Provider] - 06/12/21 10:30 am Activity:: Activity as Tolerated Equipment/Supplies:: No Equipment Needed Diet:: As Tolerated Discharge Orders Discharge Orders: Discharge Order (Routine); Ordered 06/08/21 Ordered By: Mathew Nobles DS: Summary Time Spent with Patient providing and/or coordinating discharge services: Greater than 30 minutes Status at Discharge Functional status at discharge: independent ambulation Overall status at discharge: patient is progressing back to baseline Mental Status: mental status grossly normal Speech and Movement: speech and movement normal Mood: anxious mood Affect: normal affect Exam Const General: cooperative and no acute distress Nutritional Appearance: overweight Orientation: alert and oriented x3 HENMT Head: normocephalic and atraumatic Neck Neck: no JVD Resp Effort & Inspection: normal respiratory effort Auscultation: clear to auscultation bilaterally Cardio Rate: regular rate Rhythm: regular rhythm Heart Sounds: S1 normal and S2 normal GI Palpation: soft and nontender Auscultation: normal bowel sounds Back/Spine/Pelvis Back: other (tenderness in subscapular area on right) Neuro General: no focal motor deficits Cognition: normal cognition Extrem General: no clubbing, cyanosis or edema and no calf tenderness Psych Mental Status: mental status grossly normal Speech and Movement: speech and movement normal Mood: anxious mood Affect: normal affect DS: Data Vitals/I&O Vitals and I&O: Vital Signs Temperature 36.0 C L 06/08/21 09:00 Temperature Source Tympanic 06/08/21 09:00 Pulse 85 06/08/21 09:00 Pulse Rhythm Regular 06/08/21 09:10 Pulse 62 05/31/21 22:30 Respiratory Rate 18 06/08/21 09:00 Respiratory Effort Non-Labored 06/08/21 09:10 Respiratory Depth Normal 06/08/21 09:10 Respiratory Pattern Normal 06/08/21 09:10 Blood Pressure 146/72 H 06/08/21 09:00 Blood Pressure Mean 83 05/31/21 22:02 Blood Pressure Position Sitting 05/31/21 20:08 Pulse Oximetry 93 06/08/21 09:00 Oxygen Delivery Method Nasal Cannula 06/08/21 09:00 Oxygen Flow Rate 4 06/08/21 09:00 Fraction of Inspired Oxygen (FIO2) 50 06/05/21 05:23 Pain Level 0 06/08/21 09:00 Comment 06/03/21 20:00 Intake & Output 06/07/21 06/08/21 06/08/21 23:59 11:59 23:59 Intake Total 260 / 500 Output Total 900 / 1400 400 / 400 Balance -640 / -900 -400 / -400 Intake: IV 10 Oral 250 / 490 Output: Urine 900 / 1400 400 / 400 Other: Urine Color Straw Straw Urine Appearance Clear Clear Stool Size Moderate Stool Characteristics Formed Brown Voiding Methods Bedside Commode Bedside Commode Data Completed and Pending Labs on day of discharge: Labs from last 24 hours 06/08/21 06/08/21 06:50 06:50 WBC 26.53 H* RBC 4.36 Hgb 12.4 Hct 35.7 L MCV 81.9 MCH 28.4 MCHC 34.7 RDW 12.9 Plt Count 603 H MPV 9.5 Immature Gran % See Differential Neutrophils % 69.0 Band Neutrophils % 5 Lymphocytes % 21.0 Monocytes % 3.0 Eosinophils % 0.0 Basophils % 0.0 Myelocytes % 2 Nucleated RBC % 0 Absolute Neutrophils 19.63 H Absolute Lymphocytes 5.57 H Absolute Monocytes 0.80 Absolute Eosinophils 0.00 Absolute Basophils 0.00 RBC Morphology Normal Sodium 128 L Potassium 4.3 Chloride 95 L Carbon Dioxide 22.8 Anion Gap 10.2 BUN 19 H Creatinine 0.7 Estimated GFR/1.73 m2 >= 60.00 Glucose 91 Calcium 8.2 L Total Bilirubin 0.8 AST 27 ALT 109 H Alkaline Phosphatase 87 Total Protein 6.2 L Albumin 3.0 L PFSH Medical History Degenerative cervical disc (11/21/15) 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 Asthma Father Personal history of malignant neoplasm SMALL BOWEL Sister Personal history of malignant neoplasm BREAST Brother Personal history of malignant neoplasm Sister Personal history of malignant neoplasm Social History Smoking/Tobacco Use Status: Never Smoking risk assessment performed?: Yes Alcohol Intake: never Drug use: Never Substance use type: does not use Caregiver/Support person: Yes Household members: children and other Details: 2 Housing: house Number of Children: 5 Communication Needs: Hard of Hearing and Corrective Lenses Education Level: high school Do you need help understanding health information?: Often current occupation: retired Pets and animals: No Current gender identity: female What is your relationship status?: How often do you talk on the phone with friends or family?: once per week How often do you get together with friends or relatives?: three or more times per week Panel score (0-1 are the most socially isolated patients): 1 What type of physical activity do you participate in: additional Details: housework Duration: < 15 minutes/day Frequency: 5-6 times per week Luba/Confucianist: OTHER Special luba needs: No Seatbelt use: always Working smoke detector in home: Yes Fire extinguisher in home: Yes Do you feel safe at home: Yes Do you feel safe in your relationship?: Yes Additional Social history: Lives with her daughter, in her daughter's home. Stays on first floor. Does not climb stairs. She reports that she does housework regularly, for exercise. Otherwise not active. Vacuums, does dishes, laundry. 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 Has 5 kids total. Female Reproductive History Menstrual Menopause type: natural History History 6 Para 5 Hx # Term Pregnancies 5 Multiple births Hx # Pregnancies Ectopic pregnancies AB induced Hx Number of Living Children 5 AB spontaneous
--- NOTE | 2021-06-08 14:16 | PDOC.CMDIS ---
- If Service Date Differs Date of service: 06/08/21 Time of Service: 14:17 LACE Index Scoring Tool - Questions: Length of Stay (in days): 7 - 13 Acuity (Admit via E.D.?): Yes E.D. Visits: 2 - Answers: Total Score: 10 Risk of Readmission: High Risk Care Management Discharge Reason for Hospitalization: Hypoxia, Covid Positive Discharge Plan: Millicent will return home to her daughter, Sandra's home where her family has created a schedule of family support. She will have new orders for [facility]NA RN/PT/OT to support her transition home, provide education central to new O2 and her recovery from COVID. Per MD and RT, [facility] 1600 today. She will follow up with her PCP and plan of care as prescribed. Millicent will transport via private vehicle with family. CM provided updates to Sandra this morning and Dr. Nobles reviewed discharge plan directly with Millicent's daughter, Sandra this afternoon. Patient/Family Education Needs: Review discharge instructions, discuss Ask Me Three. Services Needed at Discharge: Home Health Care Services (New RN/PT/OT, [facility] notified. )
== END 2021-06-08 16:49 | disposition home health service (06) | DRG 177 ==
LOC: ER 22:36 → MS 22:43
PROVIDERS: Internal Medicine; Admitting Provider Family Medicine; Emergency Provider Emergency Medicine; PCP Nurse Practitioner Family; Visit Provider Family Medicine
DX: U07.1 COVID-19 (principal); J12.82 Pneumonia due to coronavirus disease 2019; J96.01 Acute respiratory failure with hypoxia; E87.1 Hypo-osmolality and hyponatremia; G25.81 Restless legs syndrome; I10 Essential (primary) hypertension; E87.6 Hypokalemia; E78.5 Hyperlipidemia, unspecified; M48.061 Spinal stenosis, lumbar region without neurogenic claudication; L30.1 Dyshidrosis [pompholyx]; M50.30 Other cervical disc degeneration, unspecified cervical region; R54 Age-related physical debility
CPT/HCPCS: 36415; 71275; 80053; 84145; 86850; 86900; 86901; 87635; 93005; 96361; 96374; 99285; J1650; 83735; 83880; 84484; 85025; 85379; 86140; 93010; 94667; 99223; 99232; 99233; 99239; 99356; J1100; J3490; J8540

== ENCOUNTER 2022-09-18 09:17 | Outpatient (REF) | payer MEDICAID, SELFPAY ==
[2022-09-18 09:40] LABS: ALT 22 U/L (14-59); AST 18 U/L (15-37); Albumin 3.9 g/dL (3.4-5.0); Alkaline Phosphatase 79 U/L (46-116); Anion Gap 9.4 mmol/L (3-11); BUN 16 mg/dL (7-18); Bilirubin, Total 0.4 mg/dL (0.2-1.0); CO2 25.6 mmol/L (21.0-32.0); CREATININE 0.8 mg/dL (0.55-1.02); Chloride 102 mmol/L (98-107); Estimated GFR 72.61 (mL/min/1.73m2); Glucose 108 mg/dL (74-106); Potassium 3.8 mmol/L (3.5-5.1); Sodium 137 mmol/L (136-145); Total Protein 7.1 g/dL (6.4-8.2)
== END 2022-09-18 09:18 | disposition home or self-care (01) ==
LOC: LBN 09:17
PROVIDERS: Visit Provider Nurse Practitioner Family
DX: U07.1 COVID-19 (principal)
CPT/HCPCS: 80053

== ENCOUNTER 2023-01-15 17:27 | Outpatient (REF) | payer MEDICAID, SELFPAY ==
[2023-01-15 17:54] LABS: Abs Immature Grans 0.01 10^3/uL (0.0-0.06); Absolute Basophil Count 0.09 10^3/uL (0.0-0.2); Absolute Eosinophil Count 0.17 10^3/uL (0.0-0.7); Absolute Lymphocyte Count 2.77 10^3/uL (1.2-3.4); Absolute Monocyte Count 0.81 10^3/uL (0.1-0.8); Absolute Neutrophil Count 5.39 10^3/uL (1.2-6.7); Eosinophils % 1.8; HGB 12.8 g/dL (11.2-15.7); Immature Grans % 0.1; MCH 28.7 pg (27.0-33.0); MCHC 32.8 % (32.0-36.0); MCV 87 fL (80-95); MPV 11.8 fL (8.0-11.0); Monocytes % 8.8; Neutrophils % 58.3; Platelet Count 296 10^3/uL (130-400); RBC 4.46 10^6/uL (3.93-5.22); RDW-SD 41.5 fL; WBC 9.24 10^3/uL (4.4-10.8)
[2023-01-15 18:02] LABS: Iron 65 ug/dL (50-170); Total Iron Binding Capacity 332 ug/dL (250-450); Transferrin Sat 20 % (15-50)
[2023-01-15 18:29] LABS: ALT 25 U/L (14-59); AST 16 U/L (15-37); Alkaline Phosphatase 75 U/L (46-116); Anion Gap 8.6 mmol/L (3-11); BUN 17 mg/dL (7-18); Bilirubin, Total 0.3 mg/dL (0.2-1.0); CO2 27.4 mmol/L (21.0-32.0); CREATININE 0.7 mg/dL (0.55-1.02); Calcium 9.2 mg/dL (8.5-10.1); Chloride 102 mmol/L (98-107); Estimated GFR 85.23 (mL/min/1.73m2); Ferritin 75 ng/mL (8-252); Glucose 100 mg/dL (74-106); Potassium 4.5 mmol/L (3.5-5.1); Sodium 138 mmol/L (136-145); Total Protein 7.3 g/dL (6.4-8.2); Vitamin B12 950 pg/mL (193-986)
== END 2023-01-15 17:28 | disposition home or self-care (01) ==
LOC: NCHCN 17:27
PROVIDERS: Visit Provider Nurse Practitioner Family
DX: I10 Essential (primary) hypertension (principal); G25.81 Restless legs syndrome; L98.8 Other specified disorders of the skin and subcutaneous tissue; Z79.899 Other long term (current) drug therapy; R71.8 Other abnormality of red blood cells
CPT/HCPCS: 80053; 82607; 82728; 83540; 83550; 85025

== ENCOUNTER 2023-02-17 11:51 | Emergency (ER) | payer MEDICAID, SELFPAY ==
[2023-02-17 11:59] VITALS: BP 152/54; PULSE 81; RESP 18; TEMP 37.4; O2SAT 96
[2023-02-17] MEDS: Doxycycline Hyclate 100 MG CAP 200 MG PO (12:49)
--- NOTE | 2023-02-18 09:18 | W.ED.GENAD ---
Discharge Plan Disposition Patient Disposition: Home Discharge Details Clinical Impression: Tick bite Primary Care Provider: GAEL SHAH ED Provider: Damaris Freeman Home Meds and New Rx's Prescriptions: Continued albuterol sulfate [ProAir HFA] 90 mcg/actuation HFA aerosol inhaler 1 puff inhalation Q6H PRN glucosamine-chondroitin [Osteo Bi-Flex] 250-200 mg tablet 1 tab PO DAILY ascorbic acid (vitamin C) 1,000 mg tablet 1 g PO DAILY trazodone 50 mg tablet 50 mg PO .evening PRN lisinopril 20 mg tablet 20 mg PO DAILY hydrochlorothiazide 12.5 mg capsule 12.5 mg PO DAILY Qty: 90 12RF multivitamin [Daily Multi-Vitamin] tablet 1 tab PO DAILY AM Qty: 90 12RF acetaminophen [Acetaminophen Extra Strength] 500 mg tablet 1,000 mg PO Q6H PRN PRN (Reason: fever or pain) Qty: 180 4RF amlodipine 5 mg tablet 5 mg PO DAILY Qty: 90 12RF aspirin [Aspir-81] 81 mg tablet,delayed release (DR/EC) 81 mg PO DAILY AM Qty: 90 12RF ropinirole 1 mg tablet 1.5 mg PO HS Qty: 135 6RF halobetasol propionate 0.05 % cream 1 applic TP DAILY cyanocobalamin (vitamin B-12) 1,000 mcg capsule 1,000 mcg PO DAILY magnesium oxide 400 mg magnesium capsule 400 mg PO DAILY ibuprofen [Ibuprofen IB] 200 MG tablet 200 - 600 mg PO PRN PRN Medrol 2 mg tablet See Rx Instructions .ROUTE .COMPLEX Qty: 7 0RF Rx Instructions: 2 daily for 2 days (starting 06/09), then 1 daily for 2 days, then 1/2 daily for 2 days. Discharge Instructions Instructions: Tick Bite (ED) Additional Instructions: You have been given a single dose of doxycycline for Lyme prophylaxis Keep wound clean and dry You may apply bacitracin as needed Please return should you develop fever, chills, joint aches, or with any new or worsening complaints Discharge Data Discharge Date/Time-TO BE ENTERED AT DEPARTURE: 02/17/23 12:47 Medical Decision Making Patient is alert and oriented, pleasant in demeanor Tick was removed in the emergency department and patient was placed on prophylactic dose of doxycycline 200 mg without incident Return precautions reviewed and patient expressed understanding HPI General Date/Time Provider Initiated Documentation: 02/17/23 12:16. HPI Narrative: This 82-year-old female presents with report of tick bite, tick is currently embedded on her back. She was outside yesterday and thinks the tick has been attached for 24 to 48 hours She denies any additional complaints at this time. Related Data Home Medications Medication Instructions Recorded Confirmed ibuprofen 200 mg tablet (Ibuprofen 200 - 600 mg PO PRN PRN 03/10/14 02/17/23 IB) acetaminophen 500 mg tablet 1,000 mg PO Q6H PRN PRN fever or 08/04/18 02/17/23 (Acetaminophen Extra Strength) pain #180 tabs amlodipine 5 mg tablet 5 mg PO DAILY #90 tab-caps 08/04/18 02/17/23 hydrochlorothiazide 12.5 mg capsule 12.5 mg PO DAILY #90 tab-caps 08/04/18 02/17/23 multivitamin (Daily Multi-Vitamin 1 tab PO DAILY AM #90 tab-caps 08/04/18 02/17/23 tablet) aspirin 81 mg tablet,delayed 81 mg PO DAILY AM #90 tab-caps 11/11/18 02/17/23 release (Aspir-) ropinirole 1 mg tablet 1.5 mg PO HS #135 tabs 11/11/18 02/17/23 cyanocobalamin (vitamin B-12) 1,000 mcg PO DAILY 06/30/19 02/17/23 1,000 mcg capsule halobetasol propionate 0.05 % 1 applic topical DAILY 06/30/19 02/17/23 topical cream magnesium oxide 400 mg PO DAILY 06/30/19 02/17/23 methylprednisolone 2 mg tablet See Rx Instructions .Route 06/08/21 02/17/23 (Medrol) .COMPLEX #7 tabs albuterol sulfate 90 mcg/actuation 1 puff inhalation Q6H PRN 02/11/23 02/17/23 aerosol inhaler (ProAir HFA) ascorbic acid (vitamin C) 1,000 mg 1 g PO DAILY 02/11/23 02/17/23 tablet glucosamine-chondroitin 250 mg-200 1 tab PO DAILY 02/11/23 02/17/23 mg tablet (Osteo Bi-Flex) lisinopril 20 mg tablet 20 mg PO DAILY 02/11/23 02/17/23 trazodone 50 mg tablet 50 mg PO .evening PRN 02/11/23 02/17/23 Previous Rx's Medication Instructions Recorded acetaminophen 500 mg tablet 1,000 mg PO Q6H PRN PRN fever or 08/04/18 (Acetaminophen Extra Strength) pain #180 tabs amlodipine 5 mg tablet 5 mg PO DAILY #90 tab-caps 08/04/18 hydrochlorothiazide 12.5 mg capsule 12.5 mg PO DAILY #90 tab-caps 08/04/18 multivitamin (Daily Multi-Vitamin 1 tab PO DAILY AM #90 tab-caps 08/04/18 tablet) aspirin 81 mg tablet,delayed 81 mg PO DAILY AM #90 tab-caps 11/11/18 release (Aspir-) ropinirole 1 mg tablet 1.5 mg PO HS #135 tabs 11/11/18 methylprednisolone 2 mg tablet See Rx Instructions .Route 06/08/21 (Medrol) .COMPLEX #7 tabs Allergies Allergy/AdvReac Type Severity Reaction Status Date / Time No Known Allergies Allergy Unverified 05/31/21 20:14 General Stated Complaint: AnimalBite JOE: 4 PFSH All Active Problems (Updated 02/17/23 @ 12:34 by FAYE Vaughn) Tick bite (Acute) Leukocytosis (Acute) Frailty syndrome in geriatric patient (Acute) Goals of care, counseling/discussion (Acute) Weakness (Acute) Respiratory failure with hypoxia (Acute) Pneumonia due to COVID-19 virus (Acute) Hypokalemia (Acute) Hyponatremia (Acute) COVID (Acute) Shortness of breath (Acute) Epistaxis (Acute) Pelvic organ prolapse quantification stage 3 cystocele (Acute) Uterine prolapse (Acute) Spinal stenosis of lumbar region (Chronic 01/19/10) Restless legs (Chronic 04/20/13) Osteopenia (Chronic) 11/25 DEXA: -2.2/-1.4/-1.5 Hyperlipidemia (Chronic) Essential hypertension (Chronic) Dyshidrotic eczema (Chronic 05/05/18) Degenerative cervical disc (Chronic 11/21/15) Medical History (Updated 02/17/23 @ 12:34 by FAYE Vaughn) 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 Asthma Father Personal history of malignant neoplasm SMALL BOWEL Sister Personal history of malignant neoplasm BREAST Brother Personal history of malignant neoplasm Sister Personal history of malignant neoplasm Social History Smoking/Tobacco Use Status: Never Smoking risk assessment performed?: Yes Alcohol Intake: never Drug use: Never Substance use type: does not use Caregiver/Support person: Yes Household members: children and other Details: 2 Housing: house Number of Children: 5 Communication Needs: Hard of Hearing and Corrective Lenses Education Level: high school Do you need help understanding health information?: Often current occupation: retired Pets and animals: No Current gender identity: female What is your relationship status?: How often do you talk on the phone with friends or family?: once per week How often do you get together with friends or relatives?: three or more times per week Panel score (0-1 are the most socially isolated patients): 1 What type of physical activity do you participate in: additional Details: housework Duration: < 15 minutes/day Frequency: 5-6 times per week Luba/Quaker: OTHER Special luba needs: No Seatbelt use: always Working smoke detector in home: Yes Fire extinguisher in home: Yes Do you feel safe at home: Yes Do you feel safe in your relationship?: Yes Additional Social history: Lives with her daughter, in her daughter's home. Stays on first floor. Does not climb stairs. She reports that she does housework regularly, for exercise. Otherwise not active. Vacuums, does dishes, laundry. 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 Has 5 kids total. Female Reproductive History Menstrual Menopause type: natural History History 6 Para 5 Hx # Term Pregnancies 5 Multiple births Hx # Pregnancies Ectopic pregnancies AB induced Hx Number of Living Children 5 AB spontaneous Exam Narrative Exam Narrative: Patient alert, oriented, no acute distress, cardiac rate within normal limits and no obvious respiratory distress There is a tick attached to the upper portion of her back that is engorged with surrounding mild erythema Course Vital Signs Vital signs: Vital Signs Temperature 37.4 C 02/17/23 11:59 Pulse 81 02/17/23 11:59 Respiratory Rate 18 02/17/23 11:59 Blood Pressure 152/54 H 02/17/23 11:59 Pulse Oximetry 96 02/17/23 11:59 Temperature 37.4 C 02/17/23 11:59 Temperature Source Oral 02/17/23 11:59 Pulse 81 02/17/23 11:59 Respiratory Rate 18 02/17/23 11:59 Respiratory Effort Normal, Non-Labored 02/17/23 12:02 Blood Pressure 152/54 H 02/17/23 11:59 Blood Pressure Position Sitting 02/17/23 11:59 Pulse Oximetry 96 02/17/23 11:59 Oxygen Delivery Method Room Air 02/17/23 11:59 Oxygen Flow Rate 0 02/17/23 11:59
== END 2023-02-17 12:47 | disposition home or self-care (01) ==
PROVIDERS: Emergency Provider Physician Assistant; PCP Nurse Practitioner Family
DX: S21.251A Open bite of right back wall of thorax without penetration into thoracic cavity, initial encounter (principal); W57.XXXA Bitten or stung by nonvenomous insect and other nonvenomous arthropods, initial encounter
CPT/HCPCS: 99283

== ENCOUNTER 2023-05-06 16:25 | Outpatient (REF) | payer MEDICAID, SELFPAY ==
--- NOTE | 2023-05-06 15:52 | SKI_PTH ---
PATIENT: Millicent Casillas LOC: [facility] U#:[id number] AGE/SX: 83/F ROOM: RE05/06/[address]: Devon Jarquin MD : 1940 BED: DIS: 05/06/2023 SPEC #: [id number] RECD: 05/07/23 12:35 STATUS: LAURA REWade #: [id number] NEELAM: 05/06/23 15:[address]: Devon Jarquin DEPT: Surgical Specimen RECD BY: Kelsey Gay ENTERED: 05/07/23 12:36 SP TYPE: KENDAL ZEPEDA DR: GAEL SHAH, DELFINO Tissues: 1 - SKIN BIOPSY(SHAVE/PUNCH) Procedures: SKIN LEVEL 4 Comments: [id number]
== END 2023-05-06 16:26 | disposition home or self-care (01) ==
LOC: LBN 16:25
PROVIDERS: PCP Nurse Practitioner Family; Visit Provider Otolaryngology
DX: C44.319 Basal cell carcinoma of skin of other parts of face (principal)
CPT/HCPCS: 88305

== ENCOUNTER 2023-12-02 15:35 | Outpatient (REF) | payer MEDICAID, SELFPAY ==
[2023-12-02 17:40] LABS: Anion Gap 10.3 mmol/L (3-11); BUN 22 mg/dL (7-18); CO2 24.7 mmol/L (21.0-32.0); CREATININE 0.7 mg/dL (0.55-1.02); Calcium 9.6 mg/dL (8.5-10.1); Chloride 103 mmol/L (98-107); Glucose 107 mg/dL (74-106); Sodium 138 mmol/L (136-145)
[2023-12-02 17:43] LABS: Iron 93 ug/dL (50-170); Total Iron Binding Capacity 335 ug/dL (250-450); Transferrin Sat 28 % (15-50)
[2023-12-03 02:32] LABS: Ferritin 100 ng/mL (8-252)
== END 2023-12-02 15:36 | disposition home or self-care (01) ==
LOC: NCHCN 15:35
PROVIDERS: PCP Nurse Practitioner Family; Visit Provider Nurse Practitioner Family
DX: G25.81 Restless legs syndrome (principal)
CPT/HCPCS: 80048; 82728; 83540; 83550

== ENCOUNTER 2024-06-29 10:06 | Outpatient (CLI) | payer MEDICAID, SELFPAY ==
--- NOTE | 2024-06-29 10:00 | RT.EKG_ITS ---
APPROVED REPORT Exam: Resting ECG Reason for Exam: chest discomfort Patient Location: O HR:62 bpm ECG Measurements Heart Rate 62 AXIS VA 126 P 65 QRSd 91 QRS -7 QT 392 T 68 QTc 398 Conclusion Sinus rhythm...normal P axis, V-rate 50- 99 Supraventricular bigeminy...bigeminy string>4 w/ SV complexes Otherwise normal ECG
== END 2024-06-29 10:07 | disposition home or self-care (01) ==
LOC: DI.CM 10:07
PROVIDERS: PCP Nurse Practitioner Family; Visit Provider Physician Assistant
DX: R07.89 Other chest pain (principal)
CPT/HCPCS: 93010

== ENCOUNTER 2024-06-29 10:51 | Emergency (ER) | payer MEDICAID, SELFPAY ==
[2024-06-29] VITALS (34 sets, daily range): BP systolic 126–183; BP diastolic 40–116; PULSE 59–80; RESP 9–24; TEMP 36.3–36.7; O2SAT 94–97
--- NOTE | 2024-06-29 10:45 | RT.EKG_ITS ---
APPROVED REPORT Exam: Resting ECG Reason for Exam: chest pain Patient Location: E HR:75 bpm ECG Measurements Heart Rate 75 AXIS ME 130 P 84 QRSd 71 QRS -13 QT 365 T 80 QTc 408 Conclusion Sinus rhythm with atrial bigeminy Rate 75 No interval abnormality No STEMI
--- NOTE | 2024-06-29 11:01 | W.ED.GENAD ---
Discharge Plan Disposition Patient Disposition: Home Condition: Stable Discharge Details Clinical Impression: Chest pain of uncertain etiology Primary Care Provider: GAEL SHAH ED Provider: Lucius Franco Home Meds and New Rx's Prescriptions: Continued glucosamine-chondroitin [Osteo Bi-Flex] 250-200 mg tablet 1 tab PO DAILY ascorbic acid (vitamin C) 1,000 mg tablet 1 g PO DAILY trazodone 50 mg tablet 50 mg PO .evening PRN lisinopril 20 mg tablet 20 mg PO DAILY hydrochlorothiazide 12.5 mg capsule 12.5 mg PO DAILY Qty: 90 12RF multivitamin [Daily Multi-Vitamin] tablet 1 tab PO DAILY AM Qty: 90 12RF acetaminophen [Acetaminophen Extra Strength] 500 mg tablet 1,000 mg PO Q6H PRN PRN (Reason: fever or pain) Qty: 180 4RF amlodipine 5 mg tablet 5 mg PO DAILY Qty: 90 12RF aspirin [Aspir-81] 81 mg tablet,delayed release (DR/EC) 81 mg PO DAILY AM Qty: 90 12RF ropinirole 1 mg tablet 1.5 mg PO HS Qty: 135 6RF cyanocobalamin (vitamin B-12) 1,000 mcg capsule 1,000 mcg PO .weekly magnesium oxide 400 mg magnesium capsule 400 mg PO DAILY ibuprofen [Ibuprofen IB] 200 MG tablet 200 - 600 mg PO PRN PRN ferrous sulfate 325 mg (65 mg iron) tablet,delayed release (DR/EC) 325 mg PO .weekly Discharge Instructions Instructions: Chest Pain, Adult ED Additional Instructions: You were seen in the emergency department for your intermittent mild chest pressure in your left chest, there was no damage to your heart, you do have some premature atrial complexes on your EKG that likely needs to be seen by cardiology and evaluated. We ruled out a blood clot in your lungs via CTA of your chest. I have placed you on the follow-up list for the cardiology service here at the hospital, please return for any acute worsening of symptoms. Referrals: [facility] [Provider Group] GAEL SHAH, MOONER [Primary Care Provider] - Discharge Data Discharge Date/Time-TO BE ENTERED AT DEPARTURE: 06/29/24 15:14 HPI General Date/Time Provider Initiated Documentation: 06/29/24 10:53. HPI Narrative: 84 year-old female presents to ED today by POV/ambulating with a chief complaint of chest pressure today, history of nonspecific arrhythmia with onset early this morning- states 2-3/10 chest pressure in her L chest, denies other cardiac history. Quality described as just pressure/heaviness, no radiation to sweating, shortness of breath, endorses mild dizziness with this, denies radiation of pain, denies recent cough/fever, denies nausea/vomiting. Severity is described as 2-3/10. Palliating factors include nothing specific attempted. Provoking factors include nothing specific. Patient not anticoagulated. Related Data Home Medications ?Medication ?Instructions ?Recorded ?Confirmed ibuprofen 200 mg tablet (Ibuprofen 200 - 600 mg PO PRN PRN 03/10/14 06/29/24 IB) acetaminophen 500 mg tablet 1,000 mg (2 x 500 mg) PO Q6H PRN 08/04/18 06/29/24 (Acetaminophen Extra Strength) PRN fever or pain #180 tabs amlodipine 5 mg tablet 5 mg PO DAILY #90 tab-caps 08/04/18 06/29/24 hydrochlorothiazide 12.5 mg capsule 12.5 mg PO DAILY #90 tab-caps 08/04/18 06/29/24 multivitamin (Daily Multi-Vitamin 1 tab PO DAILY AM #90 tab-caps 08/04/18 06/29/24 tablet) aspirin 81 mg tablet,delayed 81 mg PO DAILY AM #90 tab-caps 11/11/18 06/29/24 release (Aspir-) ropinirole 1 mg tablet 1.5 mg (1.5 x 1 mg) PO HS #135 tabs 11/11/18 06/29/24 cyanocobalamin (vitamin B-12) 1,000 mcg PO .weekly 06/30/19 06/29/24 1,000 mcg capsule magnesium oxide 400 mg PO DAILY 06/30/19 06/29/24 ascorbic acid (vitamin C) 1,000 mg 1 g PO DAILY 02/11/23 06/29/24 tablet glucosamine-chondroitin 250 mg-200 1 tab PO DAILY 02/11/23 06/29/24 mg tablet (Osteo Bi-Flex) lisinopril 20 mg tablet 20 mg PO DAILY 02/11/23 06/29/24 trazodone 50 mg tablet 50 mg PO .evening PRN 02/11/23 06/29/24 ferrous sulfate 325 mg (65 mg 325 mg PO .weekly 06/29/24 06/29/24 iron) tablet,delayed release Previous Rx's ?Medication ?Instructions ?Recorded acetaminophen 500 mg tablet 1,000 mg (2 x 500 mg) PO Q6H PRN 08/04/18 (Acetaminophen Extra Strength) PRN fever or pain #180 tabs amlodipine 5 mg tablet 5 mg PO DAILY #90 tab-caps 08/04/18 hydrochlorothiazide 12.5 mg capsule 12.5 mg PO DAILY #90 tab-caps 08/04/18 multivitamin (Daily Multi-Vitamin 1 tab PO DAILY AM #90 tab-caps 08/04/18 tablet) aspirin 81 mg tablet,delayed 81 mg PO DAILY AM #90 tab-caps 11/11/18 release (Aspir-) ropinirole 1 mg tablet 1.5 mg (1.5 x 1 mg) PO HS #135 tabs 11/11/18 Allergies Allergy/AdvReac Type Severity Reaction Status Date / Time No Known Allergies Allergy Verified 06/29/24 11:01 General Stated Complaint: Chest Pain JOE: 2 Review of Systems All systems reviewed & are unremarkable except as noted in HPI and below Exam Narrative Exam Narrative: GENERAL APPEARANCE: Well-nourished, non-toxic, awake and alert, atraumatic, no acute distress. SKIN: Warm, pink, dry, intact, without rashes/lesions/ulcerations. HEAD: Normocephalic, atraumatic, normal hair distribution for gender/age. EYES: Normal conjunctiva, no exudates on lids/lashes. ENT: Nares patent, no circumoral cyanosis, no facial swelling NECK: Supple, trachea midline, painless cervical ROM. LUNGS/CHEST: Lungs CTA bilaterally- no rhonchi/rales/wheezes diffusely, non-labored respirations, normal A/P diameter, symmetrical expansion, no chest wall deformity HEART (CV/PV): Irregular rate and rhythm without murmur, no peripheral edema, no JVD. ABDOMEN: Soft, non-distended, no guarding. MSK: Normal ROM, no swelling/deformity to bilateral UEs or LEs, moving all extremities without weakness, no cyanosis, spine midline without tenderness, normal curvature. NEURO: Mental Status AAOx4 - alert to person, place, time, events No facial droop, no forehead involvement. Motor: No focal weakness - strength 5/5 in bilateral UEs and LEs, proximal and distal, symmetric. Sensory: sensation intact to light touch globally. Gait normal: patient ambulated without ataxia into ED room. PSYCH: euthymic, cooperative, pleasant, appropriate speech Course Vital Signs Vital signs: Vital Signs Temperature 36.3 C L 06/29/24 10:53 Pulse 79 06/29/24 10:53 Respiratory Rate 18 06/29/24 10:53 Blood Pressure 158/69 H 06/29/24 10:53 Pulse Oximetry 95 06/29/24 10:53 Temperature 36.3 C L 06/29/24 10:53 Temperature Source Temporal Artery Scan 06/29/24 10:53 Pulse 79 06/29/24 10:53 Respiratory Rate 18 06/29/24 10:53 Blood Pressure 158/69 H 06/29/24 10:53 Blood Pressure Position Sitting 06/29/24 10:53 Pulse Oximetry 95 06/29/24 10:53 Oxygen Delivery Method Room Air 06/29/24 10:53 Oxygen Flow Rate 0 06/29/24 10:53 Pain Level 0 06/29/24 10:53 Medical Decision Making This dictation utilizes [id number] dictation software and may contain unedited grammatical errors. 84 year-old female presents to ED today by POV/ambulating with a chief complaint of chest pressure today, history of nonspecific arrhythmia with onset early this morning- states 2-3/10 chest pressure in her L chest, denies other cardiac history. Quality described as just pressure/heaviness, no radiation to sweating, shortness of breath, endorses mild dizziness with this, denies radiation of pain, denies recent cough/fever, denies nausea/vomiting. Severity is described as 2-3/10. Palliating factors include nothing specific attempted. Provoking factors include nothing specific. Patients' medical history: Palliative care patient, frailty syndrome, hypertension, osteopenia. Family and social history: Lives at home, eats normal diet, no recent travel or sick contacts. Pertinent exam findings / vital signs include benign cardiopulmonary exam, neuro intact, benign abdomen, hemodynamically stable. Differential / pathologies of concern include arrhythmia, acute coronary syndrome, costochondritis, PE. Diagnostic studies of: -CBC, CMP, serial troponins, BMP, lipase, TSH, D-dimer, EKG, CTA chest. -CBC is unremarkable -CMP has no actionable abnormality -Serial troponins negative with reliable onset -BNP within normal limits -Lipase negative -TSH within normal limits -CTA chest shows no PE, does show an old L1 fracture, patient notes that she did fall in the shower 3 to 4 months ago but is fine and getting around normally -EKG shows some PACs and bigeminy but no other abnormalities Interventions of: -None ED Course/Assessment/Plan: 84-year-old female with mild chest pressure this morning, has a negative cardiac workup, no PE on CTA, had some PACs on her EKG but low heart score without cardiac history warranting outpatient follow-up, patient was counseled to return strictly for any concerning chest pain especially shortness of breath, sweating, dizziness, palpitations. Findings not consistent with acute coronary syndrome, persistent chest pain, PE, pneumonia or other cardiac or pulmonary abnormality. Disposition of Chest Pain of Uncertain Etiology. Patient verbalized understanding of the plan and return to ED criteria and engaged in shared decision making. Medical Records Medical records reviewed: Yes I reviewed the patient's medical records. Imaging Data Radiologic Study: Attestation: I personally reviewed and interpreted this imaging study as follows: Imaging: CT Scan Radiologist's impression: EXAM: CT CHEST PE CTA CLINICAL HISTORY: elevated d-dimer, chest pain. TECHNIQUE: Imaging Protocol: CT angiography of the chest was performed using pulmonary embolus protocol. Multi planar reconstructions were performed. CONTRAST MATERIAL: Intravenous: Omnipaque 350 Contrast volume: 100 cc COMPARISON: CT CT CHEST PE CTA from 06/07/2021 FINDINGS: CHEST: PULMONARY ARTERIES: There are no intraluminal filling defects to suggest acute pulmonary emboli. LUNGS: There has been significant improvement in the lung vragas with almost complete resolution of the previously present extensive bilateral infiltrates. There are again no pleural effusions. A small 4 millimeter subpleural nodule in the anterior segment of the right upper lobe appears unchanged.. No new lung nodules and no pleural effusions. MEDIASTINUM: There is no hilar nor mediastinal adenopathy. Visualized thyroid unremarkable. CARDIAC: Heart size is upper normal. There is no pericardial effusion.Caliber of the thoracic aorta is within normal limits. No evidence of aortic dissection. There is no significant shift of the interventricular septum. PARTIALLY VISUALIZED UPPERMOST ABDOMEN: No obvious findings OSSEOUS: There is a compression fracture at superior endplate of L1 which was not previously present on CT scan 3 years ago.. IMPRESSION: 1. No evidence of acute pulmonary emboli. No evidence of pulmonary infarction.No pleural effusions. Stable 4 mm right upper lobe nodule, unchanged from 2020. 2. Significant improvement/resolution of the extensive bilateral pulmonary infiltrates which were evident on a prior CT scan of 2020. Presently no infiltrates nor pleural effusions. 3. Superior endplate compression fracture L1 which was not present on the CT scan of 3 years ago (06/07/2021). Lab Data Lab results reviewed: Yes I reviewed the patient's lab results. Labs: Laboratory Tests Range/Units 06/29/24 06/29/24 06/29/24 11:02 12:11 14:11 WBC (4.4-10.8) 10^3/uL 9.85 RBC (3.93-5.22) 10^6/uL 4.55 Hgb (11.2-15.7) g/dL 13.4 Hct (36.0-46.0) % 40.7 MCV (80-95) fL 90 MCH (27.0-33.0) pg 29.5 MCHC (32.0-36.0) % 32.9 RDW (11.7-14.6) % 12.4 Plt Count (130-400) 10^3/uL 322 MPV (8.0-11.0) fL 10.8 Immature Gran % % 0.3 Neutrophils % % 57.8 Lymphocytes % % 30.7 Monocytes % % 8.8 Eosinophils % % 1.5 Basophils % % 0.9 Nucleated RBC % (0.0-0.3) % 0.0 Absolute Neutrophils (1.2-6.7) 10^3/uL 5.69 Absolute Lymphocytes (1.2-3.4) 10^3/uL 3.02 Absolute Monocytes (0.1-0.8) 10^3/uL 0.87 H Absolute Eosinophils (0.0-0.7) 10^3/uL 0.15 Absolute Basophils (0.0-0.2) 10^3/uL 0.09 D-Dimer (<500) ng/mlFEU 1001 H Sodium (136-145) mmol/L 138 Potassium (3.5-5.1) mmol/L 4.0 Chloride (98-107) mmol/L 102 Carbon Dioxide (21.0-32.0) mmol/L 24.1 Anion Gap (3-11) mmol/L 11.9 H BUN (7-18) mg/dL 19 H Creatinine (0.55-1.02) mg/dL 0.7 Est GFR (CKD-EPI 2020) (mL/min/1.73m2) 84.17 Glucose (74-106) mg/dL 102 Calcium (8.5-10.1) mg/dL 9.5 Magnesium (1.8-2.4) mg/dL 2.2 Total Bilirubin (0.2-1.0) mg/dL 0.47 AST (15-37) U/L 18 ALT (14-59) U/L 23 Alkaline Phosphatase (46-116) U/L 82 Troponin I (<or=51) ng/L 6 Cancelled 5 NT-Pro-B Natriuret Pep (<300) pg/mL 149 Total Protein (6.4-8.2) g/dL 7.9 Albumin (3.4-5.0) g/dL 4.1 Lipase (16-77) U/L 31 TSH (0.36-3.74) uIU/mL 1.43 Quality:SDOH Health Related Social Needs: No Data to Display PFSH All Active Problems (Updated 06/29/24 @ 14:55 by FAYE Kaplan) Chest pain of uncertain etiology (Acute) Skin lesion of face (Acute) Leukocytosis (Acute) Frailty syndrome in geriatric patient (Acute) Goals of care, counseling/discussion (Acute) Weakness (Acute) Respiratory failure with hypoxia (Acute) Pneumonia due to COVID-19 virus (Acute) Hypokalemia (Acute) Hyponatremia (Acute) COVID (Acute) Shortness of breath (Acute) Epistaxis (Acute) Pelvic organ prolapse quantification stage 3 cystocele (Acute) Uterine prolapse (Acute) Spinal stenosis of lumbar region (Chronic 01/19/10) Restless legs (Chronic 04/20/13) Osteopenia (Chronic) 11/25 DEXA: -2.2/-1.4/-1.5 Hyperlipidemia (Chronic) Essential hypertension (Chronic) Dyshidrotic eczema (Chronic 05/05/18) Degenerative cervical disc (Chronic 11/21/15) Medical History 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 Asthma Father Personal history of malignant neoplasm SMALL BOWEL Sister Personal history of malignant neoplasm BREAST Brother Personal history of malignant neoplasm Sister Personal history of malignant neoplasm Social History Smoking/Tobacco Use Status: Never Smoking risk assessment performed?: Yes Alcohol Intake: current Alcohol Intake frequency: 0-2 drinks per day Alcohol type: hard liquor Drug use: Never Substance use type: does not use Caregiver/Support person: Yes Household members: children and other Details: 2 Housing: house Number of Children: 5 Communication Needs: Hard of Hearing and Corrective Lenses Education Level: high school Do you need help understanding health information?: Often current occupation: retired Pets and animals: No Current gender identity: female What is your relationship status?: How often do you talk on the phone with friends or family?: once per week How often do you get together with friends or relatives?: three or more times per week Panel score (0-1 are the most socially isolated patients): 1 What type of physical activity do you participate in: additional Details: housework Duration: < 15 minutes/day Frequency: 5-6 times per week Luba/Cheondoism: OTHER Special luba needs: No Seatbelt use: always Working smoke detector in home: Yes Fire extinguisher in home: Yes Do you feel safe at home: Yes Do you feel safe in your relationship?: Yes Additional Social history: Lives with her daughter, in her daughter's home. Stays on first floor. Does not climb stairs. She reports that she does housework regularly, for exercise. Otherwise not active. Vacuums, does dishes, laundry. 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 Has 5 kids total. Female Reproductive History Menstrual Menopause type: natural History History 6 Para 5 Hx # Term Pregnancies 5 Multiple births Hx # Pregnancies Ectopic pregnancies AB induced Hx Number of Living Children 5 AB spontaneous
[2024-06-29 11:44] LABS: Abs Immature Grans 0.03 10^3/uL (0.0-0.06); Absolute Basophil Count 0.09 10^3/uL (0.0-0.2); Absolute Eosinophil Count 0.15 10^3/uL (0.0-0.7); Absolute Lymphocyte Count 3.02 10^3/uL (1.2-3.4); Absolute Monocyte Count 0.87 10^3/uL (0.1-0.8); Absolute Neutrophil Count 5.69 10^3/uL (1.2-6.7); Basophils % 0.9 %; Eosinophils % 1.5 %; HCT 40.7 % (36.0-46.0); HGB 13.4 g/dL (11.2-15.7); Immature Grans % 0.3 %; Lymphocytes % 30.7 %; MCH 29.5 pg (27.0-33.0); MCHC 32.9 % (32.0-36.0); MCV 90 fL (80-95); MPV 10.8 fL (8.0-11.0); Monocytes % 8.8 %; Neutrophils % 57.8 %; Platelet Count 322 10^3/uL (130-400); RBC 4.55 10^6/uL (3.93-5.22); RDW 12.4 % (11.7-14.6); RDW-SD 40.7 fL; WBC 9.85 10^3/uL (4.4-10.8)
[2024-06-29 12:10] LABS: ALT 23 U/L (14-59); AST 18 U/L (15-37); Albumin 4.1 g/dL (3.4-5.0); Alkaline Phosphatase 82 U/L (46-116); Anion Gap 11.9 mmol/L (3-11); BUN 19 mg/dL (7-18); Bilirubin, Total 0.47 mg/dL (0.2-1.0); CO2 24.1 mmol/L (21.0-32.0); CREATININE 0.7 mg/dL (0.55-1.02); Calcium 9.5 mg/dL (8.5-10.1); Chloride 102 mmol/L (98-107); Estimated GFR 84.17 (mL/min/1.73m2); Glucose 102 mg/dL (74-106); Lipase 31 U/L (16-77); Magnesium 2.2 mg/dL (1.8-2.4); NT-proBNP 149 pg/mL (<300); Sodium 138 mmol/L (136-145); TSH (W/Ref FT4) 1.43 uIU/mL (0.36-3.74); Total Protein 7.9 g/dL (6.4-8.2); Troponin I 6 ng/L (<or=51)
[2024-06-29 12:21] LABS: D-Dimer 1001 ng/mlFEU (<500)
[2024-06-29] MEDS: Omnipaque 350 MG/ML 100 ML BTL IJ (12:42)
[2024-06-29] MEDS: Normal Saline - Diluent 50 ML VIAL IJ (12:43)
--- NOTE | 2024-06-29 12:52 | DI.CT_ITS ---
Exam(s) CT CHEST PE CTA EXAM: CT CHEST PE CTA CLINICAL HISTORY: elevated d-dimer, chest pain. TECHNIQUE: Imaging Protocol: CT angiography of the chest was performed using pulmonary embolus keturah col. Multi planar reconstructions were performed. CONTRAST MATERIAL: Intravenous: Omnipaque 350 Contrast volume: 100 cc COMPARISON: CT CT CHEST PE CTA from 06/07/2021 FINDINGS: CHEST: PULMONARY ARTERIES: There are no intraluminal filling defects to suggest acute pulmonary emboli. LUNGS: There has been significant improvement in the lung vargas with almost complete resolution of t he previously present extensive bilateral infiltrates. There are again no pleural effusions. A smal l 4 millimeter subpleural nodule in the anterior segment of the right upper lobe appears unchanged.. No new lung nodules and no pleural effusions. MEDIASTINUM: There is no hilar nor mediastinal adenopathy. Visualized thyroid unremarkable. CARDIAC: Heart size is upper normal. There is no pericardial effusion.Caliber of the thoracic aorta is within normal limits. No evidence of aortic dissection. There is no significant shift of the inte rventricular septum. PARTIALLY VISUALIZED UPPERMOST ABDOMEN: No obvious findings OSSEOUS: There is a compression fracture at superior endplate of L1 which was not previously present on CT scan 3 years ago.. IMPRESSION: 1. No evidence of acute pulmonary emboli. No evidence of pulmonary infarction.No pleural effusions. Stable 4 mm right upper lobe nodule, unchanged from 2020. 2. Significant improvement/resolution of the extensive bilateral pulmonary infiltrates which were ralph dent on a prior CT scan of 2020. Presently no infiltrates nor pleural effusions. 3. Superior endplate compression fracture L1 which was not present on the CT scan of 3 years ago (). Called by myself to ER provider 06/29/2024 1:05 p.m. RADIATION DOSE DELIVERED: 66.13mGy.cm Total DLP DATA REPOSITORY: All CT scans at this facility are submitted to the National Radiology Data Registry (NRDR) Dose Index Registry (DIR) with the [employer] ([employer]). RADIATION OPTIMIZATION: All CT scans at this facility use at least one of these dose optimization te chniques: automated exposure control; mA and/or kV adjustment per patient size (includes targeted exa ms where dose is matched to clinical indication); or iterative reconstruction.
[2024-06-29 14:34] LABS: Troponin I 5 ng/L (<or=51)
== END 2024-06-29 15:14 | disposition home or self-care (01) ==
PROVIDERS: Emergency Provider Physician Assistant; PCP Nurse Practitioner Family
DX: R07.9 Chest pain, unspecified (principal); I49.1 Atrial premature depolarization; M48.56XA Collapsed vertebra, not elsewhere classified, lumbar region, initial encounter for fracture; I10 Essential (primary) hypertension; Z79.82 Long term (current) use of aspirin
CPT/HCPCS: 36415; 71275; 80053; 83690; 93005; 99285; 83735; 83880; 84443; 84484; 85025; 85379; 93010; 99283; J3490

== ENCOUNTER 2025-03-09 13:45 | Outpatient (REF) | payer MEDICAID, SELFPAY ==
[2025-03-09 15:41] LABS: HCT 36.4 % (36.0-46.0); HGB 11.9 g/dL (11.2-15.7); MCH 28.9 pg (27.0-33.0); MCHC 32.7 % (32.0-36.0); MCV 88 fL (80-95); MPV 11.2 fL (8.0-11.0); Platelet Count 295 10^3/uL (130-400); RBC 4.12 10^6/uL (3.93-5.22); RDW 13.2 % (11.7-14.6); WBC 9.63 10^3/uL (4.4-10.8)
[2025-03-09 15:55] LABS: Iron 108 ug/dL (50-170); Total Iron Binding Capacity 311 ug/dL (250-450); Transferrin Sat 35 % (15-50)
[2025-03-09 16:07] LABS: ALT 25 U/L (14-59); AST 20 U/L (15-37); Albumin 4.2 g/dL (3.4-5.0); Alkaline Phosphatase 73 U/L (46-116); Anion Gap 12.5 mmol/L (3-11); BUN 22 mg/dL (7-18); Bilirubin, Total 0.5 mg/dL (0.2-1.0); CO2 25.5 mmol/L (21.0-32.0); CREATININE 0.8 mg/dL (0.55-1.02); Chloride 100 mmol/L (98-107); Estimated GFR 71.71 (mL/min/1.73m2); Ferritin 134 ng/mL (8-252); Glucose 98 mg/dL (74-106); Potassium 4.4 mmol/L (3.5-5.1); Sodium 138 mmol/L (136-145); Total Protein 7.1 g/dL (6.4-8.2)
== END 2025-03-09 13:46 | disposition home or self-care (01) ==
LOC: NCHCN 13:45
PROVIDERS: PCP Nurse Practitioner Family; Visit Provider Nurse Practitioner Family
DX: G25.81 Restless legs syndrome (principal); I10 Essential (primary) hypertension
CPT/HCPCS: 80053; 85027; 82728; 83540; 83550